=== PATIENT | female | born 1940 | race Caucasian/White ===

== ENCOUNTER 2017-01-10 13:46 | Emergency (ER) | payer MEDICARE, MEDICAID ==
[2016-02-20 10:59] VITALS: BMI 27.5
[~2017-01-10 13:46] MED LIST: ASPIRIN 81 MG E81 MG PO; ASPIRIN EC81 M1 PO; BRILINTA90 MG PO; CARDURA2 MG PO; CLONAZEPAM2 MG/TAB PO; HYDROCODON-ACE1 EAC9 PO; ISOSORBIDE MONO30 M1 PO; K-DUR20 MEQ PO; KLONOPIN1 MG PO; NEXIUM40 MG PO; NORCO 10/325 TA1 TA1 PO; NORVASC5 MG PO; PLAVIX75 MG PO; PROVENTIL HFA6.7 GM INH; SOMA350 MG PO; SYNTHROID75 MCG PO; TENORMIN25 MG PO; TOPROL XL50 MG PO; TRIBENZOR 40-11 EAC1 PO; VENTOLIN HFA18 GM INH; WELLBUTRIN100 MG PO; WELLBUTRIN75 MG PO; ZESTORETIC 20/21 TAB PO
== END 2017-01-10 19:35 | disposition home or self-care (01) ==
LOC: D.ER 13:46
DX: S49.92XA Unspecified injury of left shoulder and upper arm, initial encounter (principal); W22.8XXA Striking against or struck by other objects, initial encounter; Y93.89 Activity, other specified; Y92.019 Unspecified place in single-family (private) house as the place of occurrence of the external cause

== ENCOUNTER 2017-03-02 13:17 | Emergency (ER) | payer MEDICARE, MEDICAID ==
[2016-02-20 10:59] VITALS: BMI 27.5
[2017-03-02 14:05] LABS: BASOPHILS 0.3 % (0-2); EOSINOPHILS 1.1 % (0-7); HEMATOCRIT 36.8 % (36.0-48.0); HEMOGLOBIN 11.5 g/dL (12-16); IMMATURE GRANULOCYTES 0.4 % (0-5); MCH 28.5 pg (26.0-34.0); MCHC 31.3 g/dL (31.0-37.0); MCV 91.3 fL (80.0-100.0); MEAN PLATELET VOLUME 11.1 fL (7.4-10.4); MONOCYTES 14.9 % (2-11); NEUTROPHILS 65.3 % (40-80); PLATELET COUNT 283 10x3/uL (130-400); RBC 4.03 10x6/uL (4.00-5.40); RDW 13.7 % (11.5-14.5); WBC 9.3 10x3/uL (4.8-10.8)
[2017-03-02 14:19] LABS: ALBUMIN 3.2 g/dL (3.4-5.0); ANION GAP 10.7 mmol/L (8-16); BILIRUBIN - TOTAL 0.27 mg/dL (0.2-1.3); CALCIUM 9.1 mg/dL (8.5-10.1); CARBON DIOXIDE 29.1 mmol/L (21.0-32.0); CREATININE - SERUM 1.2 mg/dL (0.6-1.3); POTASSIUM - SERUM 3.8 mmol/L (3.5-5.1); PROTEIN - SERUM 7.5 g/dL (6.4-8.2)
== END 2017-03-02 15:42 | disposition home or self-care (01) ==
LOC: D.ER 13:17
PROVIDERS: Emergency Medicine
DX: S16.1XXA Strain of muscle, fascia and tendon at neck level, initial encounter (principal); W01.0XXA Fall on same level from slipping, tripping and stumbling without subsequent striking against object, initial encounter; Y93.89 Activity, other specified; Y92.010 Kitchen of single-family (private) house as the place of occurrence of the external cause; S09.90XA Unspecified injury of head, initial encounter; S39.93XA Unspecified injury of pelvis, initial encounter; S49.92XA Unspecified injury of left shoulder and upper arm, initial encounter; I10 Essential (primary) hypertension; J45.909 Unspecified asthma, uncomplicated; J44.9 Chronic obstructive pulmonary disease, unspecified; Z86.73 Personal history of transient ischemic attack (TIA), and cerebral infarction without residual deficits; E11.9 Type 2 diabetes mellitus without complications

== ENCOUNTER 2017-03-17 07:50 | Outpatient (CLI) | payer MEDICARE, MEDICAID ==
[~2017-03-17] VITALS: Ht 157.5 cm; Wt 68.2 kg
--- NOTE | ~2017-03-17 | HEMODYNAMI ---
PATIENT:ERIC WARD MEDICAL RECORD: [id number] : 42 LOCATION:[facility] ADMISSION DATE: 03/17/17 Generatedon:03/17/201711:10 Patient name: ERIC WARD Patient #: [id number] SSN: : 1940 Date of study: 03/17/2017 Page: Of Hemodynamic Procedure Report Patient Data Patient Demographics Procedure consent was obtained First Name: ERIC Gender: Female Last Name: ED : 1940 [facility] Initial: S Age: 76 year(s) Patient #: [id number] Race: Additional ID: [id number] Contact details [address]: [address] [place] [address] rd State: [place] City: [place] Zip code: [address] Past Medical History History of disease Date Diagnosis Comments CAD COPD Hypertension Allergies Allergen Reaction Date Comments Reported Sulfa drugs 10/25/2014 Other allergy 10/25/2014 Darvocet Codeine 10/25/2014 Other allergy 10/25/2014 Artificial Sweeteners Sulfa drugs 03/17/2017 Admission Admission Data Admission Date: 03/17/2017 Admission Time: 7:50 Height (in.): 62 BSA: 1.69 (m2) Height (cm.): 157.48 BMI: 27.49 (kg/m2) Weight (lbs.): 150.31 Weight (kg.): 68.18 Lab Results Lab Result Date: 03/17/2017 Lab Result Time: 0:00 Biochemistry Name Units Result Min Max Creatinine mg/dl 1 --(--*-)-- 0.6 1.3 CBC Name Units Result Min Max Hemoglobin g/dl 12.5 *-(----)-- 13.5 17.5 Procedure Procedure Types Cath Procedure Diagnostic Procedure [facility] w/Coronaries FFR/IVUS Intra-Coronary IVUS Initial PCI Procedure Coronary Stent Initial Miscellaneous Procedures Moderate Sedation up to 30 minutes Procedure Description Procedure Date Procedure Date: 03/17/2017 Procedure Start Time: 10:48 Procedure End Time: 11:09 Procedure Staff Name Function Carmen Bruce RT Monitor Reed Eugene RN Nurse Keith Smith MD Performing Physician Grady Armenta RT Scrub Procedure Data Cath Procedure Fluoroscopy Diagnostic fluoroscopy Total fluoroscopy Time: 3.8 time: 3.8 min min Diagnostic fluoroscopy Total fluoroscopy dose: 801 dose: 801 mGy mGy Contrast Material Contrast Material Type Amount (ml) Isovue 300 112 Entry Location Entry Primary Successful Side Size Upsize Upsize Entry Closure Succes sful Closure Location (Fr) 1 (Fr) 2 (Fr) Remarks Device Remarks Femoral Right 5 Fr 6 Fr Exoseal artery Short Estimated blood loss: 10 ml Diagnostic catheters Device Type Used For End Catheter Placement Cordis 5Fr Pigtail LV Angiography Catheter (MP) Cordis 5Fr JL 4.0 Left Coronary Catheter (MP) Angiography Cordis 5Fr 3DRC Catheter Right Coronary (MP) Angiography Procedure Complications No complications Procedure Medications Medication Administration Route Dosage Oxygen NC 2 l/min Heparin Flush Bag added to field 2 bags (1000units/500ml NS) 0.9% NaCl I.V. 100 ml/hr Fentanyl I.V. 100 mcg Versed I.V. 2 mg Fentanyl I.V. 50 mcg Versed I.V. 1 mg Fentanyl I.V. 50 mcg Versed I.V. 1 mg Heparin Bolus I.V. 4000 units Fentanyl I.V. 50 mcg Fentanyl I.V. 50 mcg Hemodynamics Rest BSA: 1.69 (m2) HGB: 12.5 (g/dl) O2 Consumption: Estimated: 154.18 (ml/min) O2 Co nsumption indexed: Estimated:91.23 (ml/min/m) Heart Rate: 71 (bpm) Pressure Samples Time Site Value (mmHg) Purpose Heart Use Rate(bpm) 10:49 LV 142/54,62 Snapshot 67 Snapshots Pre Cath Intra NCS Post Cath Vital Signs Time Heart Resp SPO2 etCO2 [id number] NIBP (mmHg) Rhythm Pain Sedation Rate (ipm) (%) (mmHg) (mmHg) Status Level (bpm) 10:26:49 67 18 99 0 0 173/85(144) NSR 0 (11) 10(A) , No pain 10:31:11 62 19 100 0 0 147/76(124) NSR 0 (11) 10(A) , No pain 10:35:28 65 19 97 0 0 152/76(123) NSR 0 (11) 10(A) , No pain 10:40:27 62 18 96 0 0 143/74(110) NSR 0 (11) 10(A) , No pain 10:44:43 57 18 93 0 0 141/72(115) NSR 0 (11) 10(A) , No pain 10:48:57 69 16 95 0 0 127/74(99) NSR 0 (11) 9(A) , No pain 10:53:07 64 20 95 0 0 127/77(115) NSR 0 (11) 9(A) , No pain 10:57:19 68 17 98 0 0 138/69(113) NSR 0 (11) 9(A) , No pain 11:01:35 64 18 97 0 0 136/71(104) NSR 0 (11) 9(A) , No pain 11:05:49 65 18 92 0 0 148/75(104) NSR 0 (11) 10(A) , No pain 11:09:57 64 19 0 0 142/73(119) NSR 0 (11) 10(A) , No pain Medications Time Medication Route Dose Verified Delivered Reason Notes Effectiveness by by 10:25:00 Oxygen NC 2 Reed Reed Per physician l/min Jabier Eugene RN RN 10:25:10 Heparin Flush added 2 Reed Reed used for Bag to bags Jabier Eugene manager audio (1000units/500ml field RN NS) 10:25:20 0.9% NaCl I.V. 100 Reed Reed Per physician ml/hr Jabier Eugene RN RN 10:45:05 Fentanyl I.V. 100 Reed Reed for sedation mcg Jabier Eugene RN RN 10:45:13 Versed I.V. 2 mg Reed Reed for sedation Jabier Eugene RN RN 10:48:00 Fentanyl I.V. 50 Reed Reed for sedation mcg Jabier Eugene RN RN 10:48:06 Versed I.V. 1 mg Reed Reed for sedation Jabier Eugene RN RN 10:52:29 Fentanyl I.V. 50 Reed Reed for sedation mcg Jabier Eugene RN RN 10:52:33 Versed I.V. 1 mg Reed Reed for sedation Jabier Eugene RN RN 10:55:45 Heparin Bolus I.V. 4000 Reed Mcbride for units Jabier Eugene RN anticoagulation RN 10:57:34 Fentanyl I.V. 50 Reed Mcbride for sedation mcg Jabier Eugene RN RN 11:00:21 Fentanyl I.V. 50 Reed Mcbride for sedation [facility] Jabier Eugene RN bus washer Log Time Note 10:00:25 Reed Eugene RN sent for patient. Start room use. 10:04:24 Lab Result : Creatinine 1 mg/dl 10:04:24 Lab Result : Hemoglobin 12.5 g/dl 10:04:44 Patient Height : 62 cm 10:04:52 Patient Weight : 150.31 kg 10::26 Time tracking: Regular hours 10::29 Plan of Care:Hemodynamics will remain stable., Cardiac rhythm will remain stable., Comfort level will be maintained., Respiratory function will remain adequate., Patient/ family verbilizes understanding of procedure., Procedure tolerated without complication., Recovers from procedure without complications.. 10:16:37 Patient received from Pre/Post Procedure Room to [facility] 1 Alert and oriented. Tansferred to table in Supine position. 10:16:39 Warm blankets applied, and marci hugger turned on for patient comfort. 10:16:40 Correct patient and procedure confirmed by team. 10:16:41 Signed procedure consent form obtained from patient. 10:16:42 ECG and BP/O2 sat monitors applied to patient. 10:16:43 Full Disclosure recording started 10:25:00 Oxygen 2 l/min NC was administered by Reed Eugene RN; Per physician; 10:25:10 Heparin Flush Bag (1000units/500ml NS) 2 bags added to field was administered by Reed Eugene RN; used for procedure; 10:25:20 0.9% NaCl 100 ml/hr I.V. was administered by Reed Eugene RN; Per physician; 10:25:44 Vital chart was started 10:25:48 Rhythm: sinus rhythm 10:26:00 H&P Date Dictated: 03/10/2017 Within 30 days and on chart., H&P Addendum completed by physician on day of procedure. (MUST COMPLETE FOR ALL OUTPATIENTS). 10:26:30 Pre-procedure instructions explained to patient. 10:26:31 Pre-op teaching completed and patient verbalized understanding. 10:26:34 Family in waiting room. 10:26:36 Patient NPO since Midnight. 10:26:44 Patient allergic to Sulfa drugs 10:26:47 Is the patient allergic to Iodine/contrast media? No. 10:26:49 Is patient on blood thinner?Yes 10::52 ACC The patient was administered the following blood thiners within the last 24 hours: ACCAspirin, ACCPlavix 10:26:54 Patient diabetic? Yes. 10:26:55 If diabetic: On Metformin? No 10:26:58 Previous problem with sedation/anesthesia? No ? 10:27:00 Snore? Yes 10:27:01 Sleep apnea? No 10:27:03 Deviated septum? No 10:27:03 Opens mouth fully? Yes 10:27:04 Sticks out tongue? Yes 10:27:06 Airway obstruction? Yes ? 10:27:09 Dentures? Yes In 10:27:12 Pre procedure: right dorsailis pedis pulse 2+ Normal; easily identifiable; not easily obliterated 10:27:16 Patient pain scale 0/10 ?. 10:27:27 IV patent on arrival in left wrist with 0.9% NaCl at O. 10:27:33 Lab results completed and on chart. 10:27:38 Right groin area was prepped with chlora-prep and draped in sterile fashion 10:27:39 Alarms reviewed by R. N. 10:27:39 Sharps counted by scrub and verified by R.N. 10:27:46 Use device set Femoral Dx 10:27:47 Acist Syringe opened to sterile field. 10:27:48 Bag Decanter opened to sterile field. 10:27:49 Medline Cath Pack opened to sterile field. 10:27:49 Terumo 5Fr Brodnax Sheath opened to sterile field. 10:27:50 St Gary 260cm J .035 wire opened to sterile field. 10:27:51 Acist Hand Control opened to sterile field. 10:27:51 Acist Manifold opened to sterile field. 10:27:52 Diagnostic Infinity 5Fr Multipack catheter opened to sterile field. 10:27:52 Tegaderm 4 x 4 opened to sterile field. 10:31:45 Baseline sample Acquired. 10:35:52 Physician paged 10:39:58 Zero performed for pressure channel P1 10:40:02 Zero performed for pressure channel P1 10:44:38 Final Timeout: patient, procedure, and site verified with staff and physician. All members of the team are in agreement. 10:44:42 Right groin site verified by team. 10:44:46 Physical assessment completed. ASA score P 2 - A patient with mild systemic disease as per Keith Smith MD. 10:44:50 Sedation plan: IV Moderate Sedation Versed, Fentanyl 10:45:05 Fentanyl 100 mcg I.V. was administered by Reed Eugene RN; for sedation; 10:45:13 Versed 2 mg I.V. was administered by Reed Eugene RN; for sedation; 10:47:58 Procedure started. 10:48:00 Fentanyl 50 mcg I.V. was administered by Reed Eugene RN; for sedation; 10:48:01 Local anesthetic to right femoral artery with Lidocaine 2% by Carmen HAYES(R).INITIAL ACCESS ONLY 10:48:06 Versed 1 mg I.V. was administered by Reed Eugene RN; for sedation; 10:49:14 A 5 Fr sheath was inserted into the Right Femoral artery 10:49:27 A Cordis 5Fr Pigtail Catheter (MP) was advanced over the wire and used for LV Angiography. 10:50:04 LV gram done using HODGE 10:50:11 EF : 60 % 10:50:14 Catheter removed. 10:50:37 A Cordis 5Fr JL 4.0 Catheter (MP) was advanced over the wire and used for Left Coronary Angiography. 10:52:29 Fentanyl 50 mcg I.V. was administered by Reed Eugene RN; for sedation; 10:52:33 Versed 1 mg I.V. was administered by Reed Eugene RN; for sedation; 10:52:36 Catheter removed. 10:53:04 Terumo 6Fr Brodnax Sheath opened to sterile field. 10:53:05 Fandeavor BasixCompak Inflation Kit opened to sterile field. 10:53:05 Ge Whisper J 300cm 0.014 guide wire opened to sterile field. 10:53:28 A Cordis 5Fr 3DRC Catheter (MP) was advanced over the wire and used for Right Coronary Angiography. 10:53:44 Catheter removed. 10:54:14 Phoenix [place] Eagleye IVUS Catheter opened to sterile field. 10:54:16 Medtronic Launcher 6Fr JL 3.5 guide catheter opened to sterile field. 10:54:46 Sheath upsized to a 6 Fr Short. 10:55:45 Heparin Bolus 4000 units I.V. was administered by Reed Eugene RN; for anticoagulation; 10:55:55 6 Fr JL 3.5 guide catheter was inserted over the wire 10:56:27 Whisper wire advanced. 10:57:29 IVUS catheter advanced over wire. 10:57:34 Fentanyl 50 mcg I.V. was administered by Reed Eugene RN; for sedation; 10:59:01 IVUS pass to LAD lesion performed. 10:59:02 IVUS catheter removed over wire. 11:00:21 Fentanyl 50 mcg I.V. was administered by Reed Eugene RN; for sedation; 11:01:12 Inflation Number: 1 A Medtronic Resolute 3.5 X 9 stent was prepped and advanced across the Prox LAD. The stent was deployed at 17 SCOTT for 0:10 (min:sec). 11:03:40 Stent catheter was removed intact over wire. 11:03:40 Wire removed. 11:03:41 Guide catheter removed. 11:03:48 Sheath removed intact; hemostasis achieved with Exoseal to the Right Femoral artery. 11:03:54 Procedure ended.(Physican Out) 11:04:08 Fluoroscopy time 03.80 minutes. 11:04:14 Fluoroscopy dose: 801 mGy 11:04:14 Flurop Dose total: 801 11:04:19 Contrast amount:Isovue 300 112ml. 11:04:21 Sharps counted by scrub and verified by R.N. 11:04:30 Insertion/operative site no bleeding no hematoma. 11:04:32 Post-op/insertion site Right Femoral artery dressed using a 4 x 4 and Tegaderm. 11:04:36 Post right femoral artery:stable, clean and dry 11:04:38 Post Procedure Pulses reassessed and unchanged 11:04:44 Post-procedure physical assessment completed. ASA score P 2 - A patient with mild systemic disease as per Keith Smith MD. 11:04:47 Post procedure rhythm: unchanged. 11:04:50 Estimated blood loss: 10 ml 11:04:51 Post procedure instruction explained to patient.Patient verbalizes understanding. 11:04:52 Patient needs reinforcement of post procedure teaching. 11:05:12 Procedure type changed to Cath procedure, Diagnostic procedure, LHC, LHC w/Coronaries, FFR/IVUS, Intra-Coronary IVUS Initial, PCI procedure, Coronary Stent Initial, Miscellaneous Procedures, Moderate Sedation up to 30 minutes 11:05:14 Procedure and supply charges have been captured, reviewed, submitted and are correct. 11:05:20 Procedure Complication : No complications 11:05:23 See physician's report for complete and final results. 11:05:56 Cordis 6Fr Exoseal opened to sterile field. 11:09:39 Vital chart was stopped 11:09:41 Report given to Pre/Post Procedure Room. 11:09:44 Patient transfered to Pre/Post Procedure Room with Stretcher. 11:09:52 Procedure ended. 11:09:52 Full Disclosure recording stopped 11:09:55 End room use (Document Last) Intervention Summary Intervention Notes Time ActionType Lesion and Equipment Action# Pressure Duration Attributes Used 11:01:12 Place stent Prox LAD Medtronic 1 17 00:10 Resolute 3.5 X 9 stent Device Usage Item Name Manufacture Quantity Catalog Hospital Part Current Minimal Lot# / Number Charge Number Stock Stock Serial# Code Acist Acist 1 [id number] [id number] 415413 165697 20 Syringe Medical Systems Inc Bag Microtek 1 2002S 720994 50422 043607 5 Decanter Medical Inc. Medline Cardinal 1 [id number] 462987 45699 314522 5 Cath Pack Health Terumo 5Fr Terumo 1 [id number] 139401 187249 595402 [address] St Gary 1 655011 083478 482093 788765 30 260cm J .035 wire Acist Hand Acist 1 58203 694855 643913 598360 5 Control Medical Systems Inc Acist Acist 1 67902 458760 299246 677763 5 Manifold Medical Systems Inc Diagnostic Cardinal 1 [id number] 085987 55839 385988 30 Infinity Health 5Fr Multipack catheter Tegaderm 4 3M 1 1626W 308770 427168 615841 5 x 4 Cordis 5Fr Cardinal 1 215720 5 Pigtail Health Catheter (MP) Cordis 5Fr Cardinal 1 440514 5 JL 4.0 Health Catheter (MP) Terumo 6Fr Terumo 1 [id number] 652523 017455 838952 40 Brodnax Sheath Merit Merit 1 [id number] 021117 983093 044217 15 BasixOffiSync Medical Inflation Kit Ge Ge 1 [id number] 950551 831590 342628 5 Whisper J Vascular 300cm 0.014 guide wire Cordis 5Fr Cardinal 1 [id number] [place] [address] Catheter (MP) Phoenix Phoenix 1 [id number] 815049 800949 157532 8 [place] Eagleye IVUS Catheter Medtronic Medtronic 1 [id number] 829198 52937 011180 1 Launcher 6Fr JL 3.5 guide catheter Medtronic Medtronic 1 [id number] 611447 096929 2 [id number] Resolute 3.5 X 9 stent Cordis 6Fr Cardinal 1 [id number] 221041 487363 255987 10 [facility] M:Metrics Signature Audit Bolt Stage Time Signature Unsigned Intra-Procedure 03/17/2017 Carmen 11:10:44 AM Counts RT(R) Signatures Monitor : Carmen Signature : Counts RT Date : Time : [address] [address]
[2017-03-17 08:33] VITALS: BP 178/78; Ht 157.5 cm; Wt 68.2 kg
[2017-03-17 08:35] LABS: BASOPHILS 0.2 % (0-2); EOSINOPHILS 1.1 % (0-7); HEMATOCRIT 38.8 % (36.0-48.0); HEMOGLOBIN 12.5 g/dL (12-16); IMMATURE GRANULOCYTES 0.6 % (0-5); LYMPHOCYTES 20.4 % (15-50); MCH 28.7 pg (26.0-34.0); MCHC 32.2 g/dL (31.0-37.0); MCV 89.2 fL (80.0-100.0); MEAN PLATELET VOLUME 11.1 fL (7.4-10.4); MONOCYTES 12.2 % (2-11); NEUTROPHILS 65.5 % (40-80); PLATELET COUNT 311 10x3/uL (130-400); RBC 4.35 10x6/uL (4.00-5.40); RDW 13.1 % (11.5-14.5); WBC 8.5 10x3/uL (4.8-10.8)
[2017-03-17] MEDS ORDERED: LEVOTHYROXINE75 MCG PO (08:38)
[2017-03-17] MEDS ORDERED: NORCO 7.5/325 T1 TA1 PO (08:39)
[2017-03-17 08:55] LABS: ANION GAP 16.3 mmol/L (8-16); CALCIUM 9.4 mg/dL (8.5-10.1); CARBON DIOXIDE 24.2 mmol/L (21.0-32.0); POTASSIUM - SERUM 3.5 mmol/L (3.5-5.1)
--- NOTE | 2017-03-17 11:15 | NUR ---
1115 RECIEVED BACK TO ROOM VIA STRETCHER FROM HR ADVISOR WITH 6 FR EXOSEAL R/GROIN CDI NO BLEEDING NO HEMATOMA NOTED. CHEST PAIN IS DENIED VSS 1130 VSS WITH CHEST PAIN DENIED R/GROIN REMAINS CDI NO BLEEDING NO HEMATOMA 1200 RESTING QUIELTY WITH VSS NO DISTRESS NOTED. R/GROIN CDI NO BLEEDING NO HEMATOMA NOTED. 1230 NO CHANGE IN ASSESSMENT
--- NOTE | 2017-03-17 13:00 | NUR ---
CHEST PAIN DENIED WITH VSS 6 FR EXOSEAL R/GROIN CDI NO BLEEDING NO HEMATOMA NOTED. 1330 SANDWICH AND SODA TO BEDSIDE WITH NEEDS PROVIDED CHEST PAIN DENIED 1400 NO C/O OF PAIN OR NEEDS R/GROIN CDI
--- NOTE | 2017-03-17 14:54 | NUR ---
PIV REMOVED FROM L/ARM WITH DRESSING APPLIED VSS WITH CHEST PAIN DENIED 6 FR EXOSEAL R/GROIN CDI NO BLEEDING NO HEMATOMA NOTED PATIENT UP TO GET DRESSED FOR DISCHARGE HOME
--- NOTE | 2017-03-17 15:07 | NUR ---
VERBAL AND WRITTEN DISCHARGE GONE OVER WITH PATIENT. 6 FR EXOSEAL R/GROIN CDI NO BLEEDING NO HEMATOMA NOTED. CHEST PAIN IS DENIED NEW SCRIPT IN HAND FOR CEDRIC FROM DR VERONICA 0616 TRANSPORTED TO FRONT VIA FOR TAXI TO PROVIDE RIDE HOME CHEST PAIN DENIED
== END 2017-03-17 15:10 | disposition home or self-care (01) ==
LOC: D.CATH 07:50
PROVIDERS: Internal Medicine Interventional Cardiology
DX: I25.119 Atherosclerotic heart disease of native coronary artery with unspecified angina pectoris (principal)
CPT/HCPCS: 93458; 92978; C9600

== ENCOUNTER 2017-08-08 14:23 | Inpatient (IN) | payer MEDICARE, MEDICAID ==
--- NOTE | ~2017-08-08 | HEMODYNAMI ---
PATIENT:ERIC WARD MEDICAL RECORD: [id number] : 42 [id number] [id number] ADMISSION DATE: 08/08/17 Generatedon:08/10/201711:00 Patient name: ERIC WARD Patient #: [id number] SSN: : 1940 Date of study: 08/10/2017 Page: Of Hemodynamic Procedure Report Patient Data Patient Demographics Procedure consent was obtained First Name: ERIC Gender: Female Last Name: ED : 1940 [facility] Initial: S Age: 77 year(s) Patient #: [id number] Race: Additional ID: [id number] Contact details Address: [address] [place] [address] rd State: [place] City: [place] Zip code: [address] Past Medical History History of disease Date Diagnosis Comments CAD COPD Hypertension Allergies Allergen Reaction Date Comments Reported Sulfa drugs 10/25/2014 Other allergy 10/25/2014 Darvocet Codeine 10/25/2014 Other allergy 10/25/2014 Artificial Sweeteners Sulfa drugs 03/17/2017 Other allergy 08/10/2017 Sulfa, Darvocet, Artificial sweeteners Admission Admission Data Admission Date: 08/08/2017 Admission Time: 16:53 Room #: [facility] Lab Results Lab Result Date: 08/10/2017 Lab Result Time: 0:00 Biochemistry Name Units Result Min Max BUN mg/dl 22 --(----)-* 7 18 Creatinine mg/dl 1 --(--*-)-- 0.6 1.3 CBC Name Units Result Min Max Hemoglobin g/dl 11.4 *-(----)-- 13.5 17.5 Procedure Procedure Types Cath Procedure Diagnostic Procedure [facility] w/Coronaries FFR/IVUS Intra-Coronary IVUS Initial PCI Procedure Coronary Stent Initial Miscellaneous Procedures Moderate Sedation up to 30 minutes Procedure Description Procedure Date Procedure Date: 08/10/2017 Procedure Start Time: 10:44 Procedure End Time: 10:58 Procedure Staff Name Function Keith Smith MD Performing Physician Carmne Barrera RT Scrub Caprice Kearney RN Nurse Tiffani Fallon RT Monitor Procedure Data Cath Procedure Fluoroscopy Diagnostic fluoroscopy Total fluoroscopy Time: 2.7 time: 2.7 min min Diagnostic fluoroscopy Total fluoroscopy dose: 496 dose: 496 mGy mGy Contrast Material Contrast Material Type Amount (ml) Isovue 300 87 Entry Location Entry Primary Successful Side Size Upsize Upsize Entry Closure Succes sful Closure Location (Fr) 1 (Fr) 2 (Fr) Remarks Device Remarks Femoral Right 5 Fr 6 Fr Exoseal artery Short Estimated blood loss: 5 ml Diagnostic catheters Device Type Used For End Catheter Placement Cordis 5Fr Pigtail LV Angiography Catheter (MP) Cordis 5Fr JL 4.0 Left Coronary Catheter (MP) Angiography Cordis 5Fr 3DRC Catheter Right Coronary (MP) Angiography Procedure Complications No complications Procedure Medications Medication Administration Route Dosage Oxygen NC 2 l/min Heparin Flush Bag added to field 2 bags (1000units/500ml NS) Lidocaine 2% added to field 20 Fentanyl I.V. 50 mcg Versed I.V. 1 mg Fentanyl I.V. 50 mcg Versed I.V. 1 mg Heparin Bolus I.V. 4000 units Plavix P.O. 75 mg Hemodynamics Rest HGB: 11.4 (g/dl) Heart Rate: 72 (bpm) Pressure Samples Time Site Value (mmHg) Purpose Heart Use Rate(bpm) 10:46 AO 79/24(37) Snapshot 67 Snapshots Pre Cath Intra NCS Post Cath Vital Signs Time Heart Resp SPO2 etCO2 NIBP (mmHg) Rhythm Pain Sedation Rate (ipm) (%) (mmHg) Status Level (bpm) 10:33:38 73 20 97 0 150/86(121) NSR 0 (11) 10(A) , No pain 10:38:00 70 17 97 28.8 151/80(120) NSR 0 (11) 9(A) , No pain 10:42:20 66 16 97 30.3 159/81(127) NSR 0 (11) 9(A) , No pain 10:46:42 67 18 96 27.3 135/71(109) NSR 0 (11) 9(A) , No pain 10:50:56 69 19 93 25 149/79(123) NSR 0 (11) 9(A) , No pain 10:55:14 67 16 93 33.4 151/78(111) NSR 0 (11) 9(A) , No pain Medications Time Medication Route Dose Verified Delivered Reason Notes Effectiveness by by 10:37:44 Oxygen NC 2 Caprice Caprice used for l/min Kearney Kearney build technician RN 10:37:50 Heparin Flush added 2 Caprice Caprice used for Bag to bags Kearney Kearney procedure (1000units/500ml field RN RN NS) 10:37:56 Lidocaine 2% added 20ml Caprice Caprice used for to vial Kearney Kearney procedure field RN RN 10:44:51 Fentanyl I.V. 50 Caprice Caprice for sedation mcg Kearney Kearney RN RN 10:44:57 Versed I.V. 1 mg Caprice Caprice for sedation Kearney Kearney RN RN 10:47:01 Fentanyl I.V. 50 Caprice Caprice for sedation mcg Kearney Kearney RN RN 10:47:04 Versed I.V. 1 mg Caprice Caprice for sedation Kearney Kearney RN RN 10:54:40 Heparin Bolus I.V. 4000 Caprice Caprice for units Kearney Kearney anticoagulation RN RN 10:57:40 Plavix P.O. 75 mg Caprice Caprice for Kearney Kearney antiplatelet RN RN therapy Procedure Log Time Note 10:05:38 Carmen Counts RT(R) sent for patient. Start room use. 10:05:39 Time tracking: Regular hours 10:05:43 Plan of Care:Hemodynamics will remain stable., Cardiac rhythm will remain stable., Comfort level will be maintained., Respiratory function will remain adequate., Patient/ family verbilizes understanding of procedure., Procedure tolerated without complication., Recovers from procedure without complications.. 10:32:25 Patient received from PCU to CCL 2 Alert and oriented. Tansferred to table in Supine position. 10:32:26 Warm blankets applied, and marci hugger turned on for patient comfort. 10:32:26 Correct patient and procedure confirmed by team. 10:32:27 Signed procedure consent form obtained from patient. 10:32:28 ECG and BP/O2 sat monitors applied to patient. 10:32:29 Full Disclosure recording started 10:32:29 Vital chart was started 10:35:33 Baseline sample Acquired. 10:35:39 Rhythm: sinus rhythm 10:35:46 H&P Date Dictated: 08/10/2017 New H&P dictated by physician.. 10:35:47 Pre-procedure instructions explained to patient. 10:35:47 Pre-op teaching completed and patient verbalized understanding. 10:35:49 Family in patients room. 10:35:56 Patient NPO since Midnight. 10:36:28 Patient allergic to Other allergySulfa, Darvocet, Artificial sweeteners 10:36:32 Is the patient allergic to Iodine/contrast media? No. 10:36:33 Was the patient premedicated? No 10:36:34 Is patient on blood thinner?Yes 10:36:37 ACC The patient was administered the following blood thiners within the last 24 hours: ACCAspirin, ACCPlavix 10:36:39 Patient diabetic? No. 10:36:44 Previous problem with sedation/anesthesia? No ? 10:36:46 Snore? Yes 10:36:47 Sleep apnea? No 10:36:48 Deviated septum? No 10:36:48 Opens mouth fully? Yes 10:36:49 Sticks out tongue? Yes 10:36:53 Airway obstruction? Yes copd 10:36:55 Dentures? No ? 10:36:58 Pre procedure: right dorsailis pedis pulse 1+ Palpable, but thready & weak; easily obliterated 10:37:02 Pre procedure: left dorsailis pedis pulse 1+ Palpable, but thready & weak; easily obliterated 10:37:05 Patient pain scale 0/10 ?. 10:37:12 IV patent on arrival in left forearm with 0.9% NaCl at KVO. 10:37:25 Lab results completed and on chart. 10:37:29 Right groin area was prepped with chlora-prep and draped in sterile fashion 10:37:29 Alarms reviewed by R. N. 10:37:30 Sharps counted by scrub and verified by R.N. 10:37:32 Physician arrived 10:37:32 --------ALL STOP TIME OUT------ 10:37:32 Final Timeout: patient, procedure, and site verified with staff and physician. All members of the team are in agreement. 10:37:34 Right groin site verified by team. 10:37:37 Physical assessment completed. ASA score P 2 - A patient with mild systemic disease as per Keith Smith MD. 10:37:40 Sedation plan: IV Moderate Sedation Versed, Fentanyl 10:37:44 Oxygen 2 l/min NC was administered by Caprice Kearney RN; used for procedure; 10:37:47 Use device set Femoral Dx 10:37:48 Acist Syringe opened to sterile field. 10:37:48 Bag Decanter opened to sterile field. 10:37:49 Medline Cath Pack opened to sterile field. 10:37:49 Terumo 5Fr Trona Sheath opened to sterile field. 10:37:50 Heparin Flush Bag (1000units/500ml NS) 2 bags added to field was administered by Caprice Kearney RN; used for procedure; 10:37:50 St Gary 260cm J .035 wire opened to sterile field. 10:37:51 Acist Hand Control opened to sterile field. 10:37:51 Acist Manifold opened to sterile field. 10:37:52 Diagnostic Infinity 5Fr Multipack catheter opened to sterile field. 10:37:52 Tegaderm 4 x 4 opened to sterile field. 10:37:56 Lidocaine 2% 20ml vial added to field was administered by Caprice Kearney RN; used for procedure; 10:40:45 Lab Result : BUN 22 mg/dl 10:40:45 Lab Result : Hemoglobin 11.4 g/dl 10:40:45 Lab Result : Creatinine 1 mg/dl 10:44:11 Zero performed for pressure channel P1 10:44:19 Zero performed for pressure channel P1 10:44:37 Procedure started. 10:44:40 Local anesthetic to right femoral artery with Lidocaine 2% by Keith Smith MD.INITIAL ACCESS ONLY 10:44:49 A 5 Fr sheath was inserted into the Right Femoral artery 10:44:51 Fentanyl 50 mcg I.V. was administered by Caprice Kearney RN; for sedation; 10:44:57 Versed 1 mg I.V. was administered by Caprice Kearney RN; for sedation; 10:46:27 A Cordis 5Fr Pigtail Catheter (MP) was advanced over the wire and used for LV Angiography. 10:46:30 LV hemodynamics recorded. 10:46:32 LV gram done using HODGE 10:46:34 Injector settings: Ml/sec: 5, Volume: 15, 10:46:40 EF : 60 % 10:46:41 Catheter removed. 10:46:45 A Cordis 5Fr JL 4.0 Catheter (MP) was advanced over the wire and used for Left Coronary Angiography. 10:47:01 Fentanyl 50 mcg I.V. was administered by Caprice Kearney RN; for sedation; 10:47:03 LCA angiography performed. 10:47:04 Versed 1 mg I.V. was administered by Caprice Kearney RN; for sedation; 10:47:05 Injector settings: Ml/sec: 3, Volume: 6, 10:48:20 Catheter removed. 10:48:25 A Cordis 5Fr 3DRC Catheter (MP) was advanced over the wire and used for Right Coronary Angiography. 10:48:29 RCA angiography performed. 10:48:32 Injector settings: Ml/sec: 3, Volume: 6, 10:49:10 Terumkenxus 6Fr Trona Sheath opened to sterile field. 10:49:11 Valens SemiconductorixCompak Inflation Kit opened to sterile field. 10:49:12 Ge Whisper J 300cm 0.014 guide wire opened to sterile field. 10:49:13 [employer] Hopi Eagleye IVUS Catheter opened to sterile field. 10:49:38 MultiZona.comtronic Launcher 6Fr 3DRC SH guide catheter opened to sterile field. 10:51:04 Catheter removed. 10:51:11 Sheath upsized to a 6 Fr Short. 10:51:18 6 Fr 3drc sh guide catheter was inserted over the wire 10:51:23 whisper wire advanced. 10:51:54 Wire advanced across lesion. 10:52:22 IVUS catheter advanced over wire. 10:54:23 IVUS pass to RCA lesion performed. 10:54:27 IVUS catheter removed over wire. 10:54:40 Heparin Bolus 4000 units I.V. was administered by Caprice Kearney RN; for anticoagulation; 10:55:36 Inflation Number: 1 A Raymond OTW 3.0 x 15 stent was prepped and advanced across the Prox RCA. The stent was deployed at 17 SCOTT for 0:10 (min:sec). 10:56:02 Stent catheter was removed intact over wire. 10:56:02 Wire removed. 10:56:02 Guide catheter removed. 10:56:22 Cordis 6Fr Exoseal opened to sterile field. 10:56:56 Sheath removed intact; hemostasis achieved with Exoseal to the Right Femoral artery. 10:56:58 Procedure ended.(Physican Out) 10:57:17 Fluoroscopy time 02.70 minutes. 10:57:21 Fluoroscopy dose: 496 mGy 10:57:21 Flurop Dose total: 496 10:57:24 Contrast amount:Isovue 300 87ml. 10:57:25 Sharps counted by scrub and verified by R.N. 10:57:26 Insertion/operative site no bleeding no hematoma. 10:57:30 Post-op/insertion site Right Femoral artery dressed using a 4 x 4 and Tegaderm. 10:57:32 Post right femoral artery:stable 10:57:34 Post Procedure Pulses reassessed and unchanged 10:57:37 Post procedure rhythm: unchanged. 10:57:39 Estimated blood loss: 5 ml 10:57:40 Plavix 75 mg P.O. was administered by Caprice Kearney RN; for antiplatelet therapy; 10:57:41 Post procedure instruction explained to patient.Patient verbalizes understanding. 10:57:41 Patient needs reinforcement of post procedure teaching. 10:58:02 Procedure type changed to Cath procedure, Diagnostic procedure, LHC, LHC w/Coronaries, FFR/IVUS, Intra-Coronary IVUS Initial, PCI procedure, Coronary Stent Initial, Miscellaneous Procedures, Moderate Sedation up to 30 minutes 10:58:03 Procedure and supply charges have been captured, reviewed, submitted and are correct. 10:58:07 Procedure Complication : No complications 10:58:09 Vital chart was stopped 10:58:10 See physician's report for complete and final results. 10:58:22 Report given to [facility]. 10:58:25 Patient transfered to [facility] with Stretcher. 10:58:28 Procedure ended. 10:58:28 Full Disclosure recording stopped 10:58:38 ACC-PCI Only Patient was given prescriptions, or instructed by Keith Smith MD to start/continue the following medications upon discharge: Plavix 10:58:39 End room use (Document Last) Intervention Summary Intervention Notes Time ActionType Lesion and Equipment Action# Pressure Duration Attributes Used 10:55:36 Place stent Prox RCA [place] OTW 1 17 00:10 3.0 x 15 stent Device Usage Item Name Manufacture Quantity Catalog Hospital Part Current Minimal Lot# / Number Charge Number Stock Stock Serial# Code Acist Acist 1 [id number] [id number] 654251 637358 20 Syringe Medical Systems Inc Bag Microtek 1 2002S 795927 06724 485299 5 Decanter Medical Inc. Medline Cardinal 1 [id number] 825875 79607 201141 5 Cath Pack Health Terumo 5Fr Terumo 1 [id number] 734664 809496 315123 [address] Gary 1 [id number] 087049 859706 636137 30 260cm J .035 wire Acist Hand Acist 1 84738 068800 378535 995472 5 Control Medical Systems Inc Acist Acist 1 30508 149362 586353 650010 5 Manifold Medical Systems Inc Diagnostic Cardinal 1 [id number] 523379 36012 676312 30 Infinity Health 5Fr Multipack catheter Tegaderm 4 3M 1 1626W 448296 107264 188242 5 x 4 Cordis 5Fr Cardinal 1 709392 5 Pigtail Health Catheter (MP) Cordis 5Fr Cardinal 1 580175 5 JL 4.0 Health Catheter (MP) Cordis 5Fr Cardinal 1 624061 5 3DRC Health Catheter (MP) Terumo 6Fr Terumo 1 [id number] 485702 041084 846327 40 Trona Sheath Merit Merit 1 [id number] 681363 211126 573261 15 BasixCompak Medical Inflation Kit Ge Ge 1 [id number] 233603 056000 440601 5 Whisper J Vascular 300cm 0.014 guide wire Mcintire Mcintire 1 [id number] 971527 165844 922115 8 Hopi Eagleye IVUS Catheter Medtronic Medtronic 1 [id number] 116053 892045 610393 1 Launcher 6Fr 3DRC SH guide catheter [place] OTW Medtronic 1 [id number] 593968 321088 136462 5 [id number] 3.0 x 15 stent Cordis 6Fr Cardinal 1 EX600 201189 419406 041457 10 [facility] [employer] Signature Audit Mineral Stage Time Signature Unsigned Intra-Procedure 08/10/2017 Tiffani Fallon 11:00:43 AM RT(R) Signatures Monitor : Tiffani Fallon RT Signature : Date : Time : [address] [place] [address]
[~2017-08-08 14:23] MED LIST changes: +LEVOTHYROXINE75 MCG PO; +NORCO 7.5/325 T1 TA1 PO
[2017-08-08 14:51] LABS: BASOPHILS 0.3 % (0-2); EOSINOPHILS 1.1 % (0-7); HEMATOCRIT 36.5 % (36.0-48.0); HEMOGLOBIN 11.8 g/dL (12-16); IMMATURE GRANULOCYTES 0.5 % (0-5); LYMPHOCYTES 20.2 % (15-50); MCH 28.2 pg (26.0-34.0); MCHC 32.3 g/dL (31.0-37.0); MCV 87.3 fL (80.0-100.0); MEAN PLATELET VOLUME 11.1 fL (7.4-10.4); NEUTROPHILS 64.9 % (40-80); PLATELET COUNT 254 10x3/uL (130-400); RBC 4.18 10x6/uL (4.00-5.40); RDW 14.3 % (11.5-14.5)
[2017-08-08 15:33] LABS: ALBUMIN 3.7 g/dL (3.4-5.0); ANION GAP 15.7 mmol/L (8-16); BILIRUBIN - TOTAL 0.38 mg/dL (0.2-1.3); CALCIUM 9.3 mg/dL (8.5-10.1); POTASSIUM - SERUM 3.7 mmol/L (3.5-5.1); PROTEIN - SERUM 7.8 g/dL (6.4-8.2)
[2017-08-08 15:41] LABS: APPEARANCE CLEAR (CLEAR); COLOR YELLOW (YELLOW)
[2017-08-08 15:42] LABS: BILIRUBIN NEGATIVE (NEGATIVE); GLUCOSE NEGATIVE (NEGATIVE); KETONE NEGATIVE (NEGATIVE); NITRITE NEGATIVE (NEGATIVE); PROTEIN NEGATIVE (NEGATIVE); UROBILINOGEN NORMAL (NORMAL)
[2017-08-08 15:43] LABS: BACTERIA FEW /hpf (NONE SEEN); WHITE CELLS - URINE 0-5 /hpf (0-5)
[2017-08-08 16:08] LABS: CKMB 0.2 U/L (0.0-3.6); CREATINE KINASE 65 UL (21-215); PRO BNP 226 pg/mL (0-450); TROPONIN-I < 0.017 ng/mL (0.000-0.060)
--- NOTE | 2017-08-08 17:45 | NUR ---
PT RECIEVED TO ROOM FROM ER. RR EVEN AND UNLABORED, VSS. PT IS ABLE TO AMBULATE WITH ASSIST TO SCALE FOR WEIGHING. PT REPORTS FEELING VERY WEAK. REPORTS GENERALIZED PAIN. FALL SOCKS PLACED ON PT, ORIENTED TO ROOM AND HOW TO CALL FOR ASISTANCE. WILL CTM.
[2017-08-08 17:58] VITALS: BP 135/69; BMI 29.1
[2017-08-08 19:00] VITALS: BP 137/71
--- NOTE | 2017-08-08 20:00 | NUR ---
PT RESTING IN BED WITH NO DISTRESS. IVF INFUSING LR @ 100ML/HR TO LEFT HAND. NONLABORED RESPS ON ROOM AIR. SR PER TELEMETRY. PT C/O CHRONIC HIP PAIN AND REQUESTING NORCO THAT SHE USUALLY TAKES AT HOME. SPOKE WITH LUNCHROOM MONITOR WHO WILL HAVE TO GO TO ER AND ASK ER DOCTOR IF HOME MEDS OF NORCO AND KLONOPIN CAN BE CONTINUED.
[2017-08-08 21:54] LABS: CKMB 0.1 U/L (0.0-3.6); CREATINE KINASE 53 UL (21-215); TROPONIN-I < 0.017 ng/mL (0.000-0.060)
--- NOTE | 2017-08-08 22:51 | NUR ---
STILL AWAITING PLANT PATHOLOGIST SPEAKING TO ER ABOUT PT'S HOME MEDS.
--- NOTE | 2017-08-08 23:45 | NUR ---
ORDERS RECIEVED AND PT GIVEN KLONOPIN 2MG BY MOUTH + NORCO 7.5/325MG BY MOUTH AT THIS TIME. CYBER SECURITY INSTRUCTOR IN ROOM AND ASSISTING PT TO WALK TO BATHROOM TO VOID. NO OTHER NEEDS.
[2017-08-09] VITALS: BP 146/75
--- NOTE | 2017-08-09 03:03 | NUR ---
PT ASSISTED UP TO BATHROOM BY DEVELOPMENT DISABILITY SPECIALIST WITHOUT ANY DIFFICULTY. UPON TIME TO RETURN TO BED, NURSE AND ANOTHER TECH SHOWED UP TO ASSIST AND PT ACTED IF SHE COULD NOT HOLD HER HEAD UP AND WHEN STOOD UP BY STAFF X 2, SHE WAS LIMP AND STAFF WAS BEARING HER WEIGHT. STRESSED TO PAIIENT THAT SHE NEEDED TO STAND UP, BEAR HER WEIGHT AND WALK BACK TO BED. ASKED PT IF SHE FELT SHE HAD RECIEVED TOO MUCH KLONOPIN. PT IMMEDIATELY STRAIGHTENED UP AND STAFF ASSISTED HER TO BED. SHE THEN TOLD STAFF THAT HER KLONOPIN DID NOT MAKE HER ACT LIKE THAT, SHE SAID SOMETIMES SHE JUST DOES THAT WITH NO WARNING. PT THEN SAYING HER HIPS REALLY HURT AND SHE NEEDS PAIN MEDS. INSTRUCTED PT THAT SINCE SHE JUST APPEARED TO BE VERY LETHARGIC, NURSE WILL JUST MONITOR HER FOR NOW.
[2017-08-09 03:29] LABS: CKMB 0.4 U/L (0.0-3.6); CREATINE KINASE 54 UL (21-215); TROPONIN-I < 0.017 ng/mL (0.000-0.060)
[2017-08-09 04:03] VITALS: BP 139/69
--- NOTE | 2017-08-09 07:30 | NUR ---
REPORT RECEIVED. RR EVEN AND UNLABORED. PT DENIES NEEDS AT THIS TIME, REPORTS HAVING A "TERRIBLE NIGHT" DUE TO HER NOT SLEEPING WELL. ASSESSMENT PERFORMED. WILL CTM.
[2017-08-09 08:00] VITALS: BP 144/71
--- NOTE | 2017-08-09 09:20 | NUR ---
PT RESTING QUIETLY, RR EVEN AND UNLABORED. PT REQUESTING PRN PAIN MED. WILL GIVE AND CTM.
[2017-08-09 09:32] LABS: CREATINE KINASE 54 UL (21-215); TROPONIN-I < 0.017 ng/mL (0.000-0.060)
[2017-08-09 10:09] LABS: CKMB 0.2 U/L (0.0-3.6)
[2017-08-09 12:00] VITALS: BP 160/63
[2017-08-09 12:54] LABS: BASOPHILS 0.4 % (0-2); EOSINOPHILS 2.1 % (0-7); HEMATOCRIT 36.4 % (36.0-48.0); HEMOGLOBIN 11.4 g/dL (12-16); IMMATURE GRANULOCYTES 0.3 % (0-5); LYMPHOCYTES 29.1 % (15-50); MCHC 31.3 g/dL (31.0-37.0); MEAN PLATELET VOLUME 12.1 fL (7.4-10.4); MONOCYTES 10.5 % (2-11); NEUTROPHILS 57.6 % (40-80); PLATELET COUNT 262 10x3/uL (130-400); RBC 4.07 10x6/uL (4.00-5.40); RDW 14.7 % (11.5-14.5)
[2017-08-09 12:55] LABS: MCV 89.4 fL (80.0-100.0); WBC 6.8 10x3/uL (4.8-10.8)
--- NOTE | 2017-08-09 14:15 | NUR ---
PT FELL OFF SIDE OF BED ONTO FLOOR. PRESSURE DISPATCHER WAS IN ROOM WITH PT WHEN IT HAPPENED. PT WAS SITTING ON SIDE OF BED WHILE PRESSURE DISPATCHER PREPARED TO GIVE PT SHOWER. OCCORDING TO ESTRELLITA THE PRESSURE DISPATCHER WHO WITNESSED PT FALL, SAW THE PT FALL ONTO FLOOR FROM SIDE OF BED, PT REPORTS NOT HITTING HEAD AND DENIES LOSING CONCIOUSNESS PRIOR TO FALL. PT SAID SHE FELL ON HER HIP, BUT IT IS "NOT HURTING ANY WORSE THAN IT WAS." GEODESY TEACHER NOTIFIED. WILL CTM. FAMILY AT BEDSIDE WELL DURING FALL.
--- NOTE | 2017-08-09 14:36 | NUR ---
HERE AND AWARE OF PTS FALL. JAMAAL ASSESSING PT AND DENIES ANY ACTIONS NEEDED. WILL CONTINUE WITH FALL PRECAUTIONS.
--- NOTE | 2017-08-09 15:15 | NUR ---
PT RESTING QUIELTY, FAMILY AT BEDSIDE. RR EVEN AND UNLABORED. PT DENIES NEEDS AT THIS TIME. NO COMPLAINTS SINCE FALL.
[2017-08-09 16:00] VITALS: BP 139/67
--- NOTE | 2017-08-09 18:24 | NUR ---
PT RESTING QUIETLY, EDWARD ALARM PLACED ON PT DUE TO FALL PREVIOUSLY IN SHIFT. FALL SOCKS ON PT, BED IN LOWEST POSTION, CALL CONTE IN REACH, BEDSIDE TABLE IN REACH. PT IS AWARE TO CALL FOR ASSISTANCE IF NEEDED. RR EVEN AND UNLABORED. WLL GIVE REPORT ON PT CONDITION FOR THE DAY.
[2017-08-09 20:26] VITALS: BP 141/62
--- NOTE | 2017-08-09 21:16 | NUR ---
BEDTIME MEDS GIVEN AND ASSISTED TO BATHROOM. IVF INFUSING. REQUESTED PAIN PILL GIVEN FOR CHRONIC HIP AND HEADACHE PAIN 06/04. WILL MONITOR. MAT ALARM IN PLACE.
[2017-08-10 00:44] VITALS: BP 133/71
--- NOTE | 2017-08-10 04:25 | NUR ---
PT AWAKE AND CRYING THAT SHE IS HURTING IN HER HIPS AND HAS A HEADACHE. MEDICATED WITH NORCO 7.5/325MG TABLET AND ALSO PROVIDED AM SYNTHROID WITH SIP OF WATER PATIENT IS NPO FOR AM HEART CATH. BRIM BUSTER WILL BE PROVIDING HIBICLENS BATH AND CARE.
[2017-08-10 05:43] VITALS: BP 145/63
--- NOTE | 2017-08-10 07:30 | NUR ---
REPORT RECEIVED. RR EVEN AND UNLABORED. PT DENIES NEEDS AT THIS TIME. ASSESMENT PERFORMED. EXPLAINED THAT PT WILL BE GOING FOR HEART CATH TODAY. VERBALIZED UNDERSTANDING. WILL CTM.
[2017-08-10 08:00] VITALS: BP 136/70
--- NOTE | 2017-08-10 10:00 | NUR ---
CALLED FOR PT PRE-OP. IV LEAKING. RESTARTED 20G IV TO LEFT WRIST X1 STICK. GAVE PRE-OP MEDS. WILL CTM UPON RETURN FROM ASH KIER BOILER.
--- NOTE | 2017-08-10 10:22 | NUR ---
PT TRANSFERRED TO TITLE COORDINATOR. WILL CTM UPON RETURN.
--- NOTE | 2017-08-10 11:15 | NUR ---
PT RECEIVED TO ROOM FROM PAINT BOOTH OPERATOR. RR EVEN AND UNLABORED. VSS, PT PLACED ON FREQUENT VS. PT IS COMPLAINING OF PAIN AND FALLS ALSEEP EASILY. DRESSING CITE ON LEFT GROIN CDI. PEDAL PULSE +2. WILL CTM.
--- NOTE | 2017-08-10 14:45 | NUR ---
METAL MINER FOUND PT SITTING UPRIGHT IN BED, AFTER TEACHING HAD ALREADY BEEN DONE THAT PT NEEDED TO LAY FLAT FOR AT LEAST 4 HRS. RIGHT GROIN DRESSING STILL CDI. VSS, EXPLAINED TO PT AGAIN THE IMPORTANCE OF LAYING FLAT. VERBALIZED UNDERSTANDING. WILL CTM.
[2017-08-10 16:42] VITALS: BP 131/51
--- NOTE | 2017-08-10 16:46 | NUR ---
PT TRANSFERRED DOWN TO MRI.
--- NOTE | 2017-08-10 17:21 | NUR ---
PT BACK FROM MRI. RR EVEN AND UNLABORED. PT DENIES NEEDS AT THIS TIME, WILL CTM.
--- NOTE | 2017-08-10 18:45 | NUR ---
PT RESTING QUIETLY, RR EVEN AND UNLABORED. DRESSING CITE CDI. PT DENIES FURTHER NEEDS. WILL GIVE REPORT ON PT CONDITION FOR THE DAY.
--- NOTE | 2017-08-10 19:33 | NUR ---
PT ASLEEP. RESPIRATIONS EVEN AND UNLABORED. NO S/S OF DISTRESS. BED LOW AND CALL LIGHT IN REACH. WILL CPOC
[2017-08-10 20:55] VITALS: BP 167/80
--- NOTE | 2017-08-10 21:47 | NUR ---
PT STILL ASLEEP. AROUSES TO VERBAL STIMULI. PT UP TO TAKE MEDS. PT EDWARD ALARM ON AND ACTIVE. PT FALL RISK. PT C/O PAIN IN BACK AND LEGS. PRN PAIN MED GIVEN. PT HAS LR INFUSING AT 100 TO LEFT WRIST. PT DENIES ANY NEEDS. NO S/S OF DISTRESS. WILL CPOC
--- NOTE | 2017-08-10 22:01 | NUR ---
PT UP TO BEDSIDE COMMODE. 150ML OF LIGHT YELLOW URINE. PT BACK TO BED. PT GAIT UNSTEADY AND BALANCE PROBLEMS. PT DENIES ANY NEEDS. NO S/S OF DISTRESS. WILL CPOC. PT C/O HEADACE
[2017-08-10 23:58] VITALS: BP 175/85
--- NOTE | 2017-08-11 02:58 | NUR ---
PT ASLEEP. RESPIRATIONS EVEN AND UNLABORED. LAYING ON LEFT SIDE. NO S/S OF DISTRESS. BED LOW AND CALL LIGHT IN REACH. WILL CPOC
[2017-08-11 05:07] VITALS: BP 134/65
--- NOTE | 2017-08-11 05:50 | NUR ---
PT C/O OF PAIN 9/10 IN HIPS AND SHOULDERS. PRN NORCO GIVEN. PT OFFERED NOURISHMENT AND REPOSITIONING. PT DENIES ANY OTHER NEEDS. NO S/S OF DISTRESS. NS INFUSING AT 100 TO LEFT HAND. WILL CPOC
[2017-08-11 08:13] VITALS: BP 147/76
[2017-08-11 12:09] VITALS: BMI 29.6
[2017-08-11 12:14] VITALS: BP 161/74
--- NOTE | 2017-08-11 15:53 | NUR ---
Patient Name: ERIC WARD Admission Status: ER Accout number: [id number] Admission Date: 08-08-2017 : 1940 Admission Diagnosis: Attending: JOSÉ LUIS DE SOUZA Current LOS: 3 Anticipated DC Date: 08-11-2017 Planned Disposition: Home with Home Health Primary Insurance: [facility] PLANNED EXTERNAL PROVIDER: [facility] Discharge Planning Comments: * Is the patient Alert and Oriented? Yes 0 * How many steps to enter\\exit or inside your home? RAMP 0 * PCP DR. MENDOZA 0 * Pharmacy [facility] ON [address] 0 * Preadmission Environment Home with Family 0 * ADLs Partial Dependent 0 * Partial ADLs (Assistance needed) Bathing Transfers 0 * Equipment Cane 0 * Other Equipment NO MEDICAL EQUIPMENT PROVIDER PREFERENCE 0 * List name and contact numbers for known caregivers / representatives who currently or will assist patient after discharge: GRISELDA WARD, SON, 0 * Community resources currently utilized Meals on Wheels 0 * Please name any agencies selected above. [facility] [place], [employer] [employer] 0 * Additional services required to return to the preadmission environment? Yes 0 * Can the patient safely return to the preadmission environment? Yes 0 * Has this patient been hospitalized within the prior 30 days at any hospital? No 0 CM MET WITH PT IN ROOM TO DISCUSS DISCHARGE PLANNING AND NEEDS. PT REPORTS LIVING AT HOME WITH ASSISTANCE OF HER ADULT SON WHO ASSISTS WITH BATHING PT, GETTING PT UP, COOKING AND TRANSPORTATION. PT HAS MEALS ON WHEELS THROUGH [facility] BUT WANTS TO LOOK INTO THE "MOM'S MEALS." PT HAS A CANE WITH NO MEDICAL EQUIPMENT PROVIDER PREFERENCE. PT HAS NO OUTSIDE SERVICES ASSISTING IN THE HOME. CM DISCUSSED AVAILABILITY OF HOME HEALTH, REHAB SERVICES AND MEDICAL EQUIPMENT. PT ABSOLUTELY WILL NOT GO TO A RESIDENTIAL FACILITY AND REPORTS PLAN TO GO HOME WHERE HER SON TAKES CARE OF HER. PT WOULD LIKE TO HAVE [facility], CHOICE SIGNED, REPORTS HER SON WILL PICK HER UP FOR DISCHARGE HOME. CM RECEIVED ORDER FOR INPATIENT REHAB PRESCREENING, SPOKE TO PT IN ROOM, DISCUSSED INPATIENT REHAB PROVIDERS AND LOCATIONS. PT REPORTS SHE WILL SPEAK TO HER SON ABOUT THE POSSIBILITY, BUT IS LEANING TOWARD HOME WITH HOME HEALTH. PT REPORTS SHE WANTS PHYSICAL THERAPY AT HOME, NEEDS A WALKER WITH A SEAT, SHOWER CHAIR AND GRAB BAR FOR THE SHOWER IF ANY OF THIS IS NOT COVERED BY INSURANCE, PT WOULD LIKE TO KNOW HOW MUCH IT WILL COST. CM EXPLAINED THAT ALL EQUIPMENT AND HOME HEALTH WILL BE ARRANGED WITH DOCTORS ORDERS. PT WANTS A LETTER FROM THE DOCTOR HERE TO PROVIDE TO [facility] [place] FOR MEDICAID TO PAY HER SON TO BE HER CAREGIVER AT HOME. CM EXPLAINED THAT PT WILL NEED TO ASK FOR THIS DOCUMENTATION FROM HER PRIMARY CARE DOCTOR, DR. MENDOZA. CM PROVIDED PT WITH PHONE NUMBER TO [employer]. PT'S NEW PHYSICAL ADDRESS IS [address] [place] [address], [place] [address]. PHONE NUMBER IS [phone]. PT WILL SPEAK TO HER SON ABOUT INPATIENT REHAB; REPORTS PLAN TO GO HOME, REPORTS HER ADULT SON TO BE HER CAREGIVER; PT WANTS HOME HEALTH PHYSICAL THERAPY, WALKER WITH A SEAT, SHOWER CHAIR AND GRAB BAR FOR THE SHOWER. Channeler Outsole: Jarret Ferreira
--- NOTE | 2017-08-11 16:15 | NUR ---
Rehab Prescreening Consult recieved and the chart has been reviewed. She is managed Medicare with [facility] and will require a preauthorization for the IRF. She has a PT eval and an OT eval as well as a neuro consult pending. Once recieved all information will be submitted to [facility] for their review. Discussed with the ASHOK Ferreira. Jinny Turner RN Clinical Liaison, Rehab
[2017-08-11 17:13] VITALS: BP 172/86
--- NOTE | 2017-08-11 19:30 | NUR ---
ROUNDING NOTE: PT IS SLEEPING AT THE CHANGE OF THE SHIFT. PT IS ON RA. PT HAS A LEFT WRIST IV SITE W/ LR RUNNING AT 50CC/HR. PT'S IV IS INFILTRATED, SO IT WAS D/C'D. WILL RESTART IV. PT HAS RULED IN FOR A CVA, SO SHE IS ON NEURO CHECKS [id number]. PT ALSO HAD A CARDIAC STENT PLACED YESTERDAY. PT HAS EDWARD BED ALARM IN PLACE. PER DAY NURSE, PT HAS BEEN CONFUSED AT TIMES. SPOKE WITH PT'S SISTER TO UPDATE ON HER PROGRESS. WILL CONT MONITOR.
[2017-08-11 20:47] VITALS: BP 183/58
--- NOTE | 2017-08-12 00:45 | NUR ---
TABLE WORKER CALLED FROM THE PT'S ROOM FOR HELP. WENT INTO TO ASSIST AND PT WAS FOUND ON HER KNEES IN THE BATHROOM. TABLE WORKER, STU, STATED THAT SHE WAS WEIGHING PT AND TAKING HER TO THE BATHROOM WHEN THE PT'S KNEE'S BUCKLED AND SHE SLOWLY WENT DOWN TO HER KNEES. PT DENIES ANY INJURIES. SHE DID NOT HIT HER HEAD. PT IS AWAKE, ALERT AND ORIENTED X3. PT IS ABLE TO TELL ME WHERE SHE IS, THE YEAR, AND THE SITUATION. SHE DID NOT HIT HER HEAD, HER KNEES JUST GAVE OUT. SHE DENIES INJURING HER KNEES, ALTHOUGH SHE DOES REPORT CHRONIC KNEE PAIN AT BASELINE D/T ARTHRITIS. NO NEW NEURO DEFICITS. SPEECH IS CLEAR AND THERE IS NO UNILATERAL WEAKNESS. PT ASSISTED BACK TO BED SAFELY. PT'S FAMILY, DOCTOR, AND THE INSURANCE RATER WILL BE NOTIFIED OF INCIDENT. WILL CONT TO MONITOR.
[2017-08-12 00:52] VITALS: BP 144/71
[2017-08-12 04:37] VITALS: BP 124/65
--- NOTE | 2017-08-12 07:30 | NUR ---
AM ROUNDS COMPLETED. INTRODUCED MYSELF TO PT PRIMARY RN FOR TODAYS SHIFT. PT A&O SITTING UP IN BED RESTING QUIETLY. RR NONLABORED ON RA. PT DENIES ANY CURRENT NEEDS. WILL CHECK CHART AND CPOC.
[2017-08-12 08:14] VITALS: BP 146/77
--- NOTE | 2017-08-12 10:20 | NUR ---
MORNING MEDICATIONS GIVEN. PT REQUESTED AND WAS PROVIDED WITH PAIN PILL WELL FOR "GENERALIZED" PAIN. PT IS SITTING UP ON EDGE OF BED NEEDING TO USE BR. ASSISTED PT TO BEDSIDE COMMODE MIN ASSIST. PT VOIDED 300ML CLEAR YELLOW URINE. ASSISTED PT BACK INTO BED AND SHE STATES SHE IS DIZZY. SAT WITH PT FOR A MOMENT AND SHE FELT LIKE SHE CAUGHT HER BEARING AND STATES SHE IS NO LONGER DIZZY BUT HER HEAD FEELS "FUZZY" PT HAS HAD A CONFIRMED NEW CVA PER MRI AND DOCTORS ARE AWARE. PT IS A&O X4 AND VERY KNOWLEDGABLE ABOUT ALL HER MEDS AND DOSES. ONLY NOTED DEFICITS IS SEVERE WEAKNESS IN ALL EXTREMETIES. WILL CPOC AND WAITING FOR IP REHAB.
[2017-08-12 11:17] LABS: BASOPHILS 0.4 % (0-2); EOSINOPHILS 2.7 % (0-7); HEMATOCRIT 34.2 % (36.0-48.0); IMMATURE GRANULOCYTES 0.4 % (0-5); MCH 28.3 pg (26.0-34.0); MCHC 32.2 g/dL (31.0-37.0); MCV 87.9 fL (80.0-100.0); MONOCYTES 13.8 % (2-11); NEUTROPHILS 65.7 % (40-80); PLATELET COUNT 223 10x3/uL (130-400); RBC 3.89 10x6/uL (4.00-5.40); RDW 14.5 % (11.5-14.5); WBC 8.2 10x3/uL (4.8-10.8)
[2017-08-12 11:37] LABS: ANION GAP 12.1 mmol/L (8-16); CALCIUM 8.9 mg/dL (8.5-10.1); CARBON DIOXIDE 26.4 mmol/L (21.0-32.0); POTASSIUM - SERUM 3.5 mmol/L (3.5-5.1)
[2017-08-12 12:10] VITALS: BP 152/74
--- NOTE | 2017-08-12 12:56 | NUR ---
PT SITTING UP IN BED WATCHING TV AND EATING LUNCH. RR NONLABORED ON RA. PT DENIES ANY CURRENT PAIN OR NEEDS. CL IN REACH, BED IN LOWEST, SIDE RAILS X2 AND EDWARD ALARM IN PLACE. WILL CPOC.
--- NOTE | 2017-08-12 15:00 | NUR ---
DID NOT GIVE PTS KLONOPIN R/T HER BEING DROWSY AND SLOW TO RESPOND ALL DAY. PT DOESNT APPEAR ANXIOUS AND NO NEED FOR IT AT THIS TIME. IF PT BECOMES ANXIOUS OR ASK FOR IT WILL PROVIDE. NO CURRENT NEEDS AT THIS TIME. WILL CPOC.
--- NOTE | 2017-08-12 15:03 | NUR ---
Rehab Note- Aliya began, spoke with Divina with [facility], Ref#[id number]. Awaiting to fax clinicals. Will follow at this time. Thank you for this referral! Jaz Meng RN Clinical Liaison, [facility] Rehab
[2017-08-12 15:43] VITALS: BP 161/81
--- NOTE | 2017-08-12 17:51 | NUR ---
PT IS REFUSING A BATH AND STATES SHE IS TOO WEAK HOWEVER PT IS A MIN ASSIST TO BEDSIDE COMMODE. PT STATES SHE WILL "LAY THERE" AND ALLOW THE PUBLIC SPEAKER TO BATHE HER BUT REFUSES TO ASSIST. OFFERED TO SET THINGS UP AND HELP HER BUT PT REFUSED. WILL CPOC.
[2017-08-12 19:00] VITALS: BP 170/83
--- NOTE | 2017-08-12 19:58 | NUR ---
RESUMED CARE OF PT, UP ON BEDSIDE COMMODE. ASSISTED BACK TO BED. LEFT HAND INFUSING LR @ 50. FAMILY AT BEDSIDE. 85 SR WITH PVC ON TELEMETRY. PLAN OF CARE DISCUSSED. CALL LIGHT IN REACH. WILL CONTINUE TO MONITOR. SEE NURSE ASSESSMENT.
--- NOTE | 2017-08-12 20:45 | NUR ---
ARRIVED TO FLOOR VIA BED, ACCOMPANIED BY ICU NURSES. ORIENTED TO UNIT, CALL LIGHT IN REACH. WILL CONTINUE TO MONITOR.
[2017-08-13] VITALS: BP 143/73
[2017-08-13 04:00] VITALS: BP 182/68
[2017-08-13 05:28] LABS: CHOL - HDL RATIO 5.8 ratio (2.3-4.1); LDL-HDL RATIO 4.1 ratio (1.5-3.5)
--- NOTE | 2017-08-13 06:42 | NUR ---
NO CHANGES FROM PREVIOUS ASSESSMENT. CALL LIGHT IN REACH.
[2017-08-13 08:00] VITALS: BP 155/92
[2017-08-13 12:00] VITALS: BP 185/94
[2017-08-13 16:00] VITALS: BP 183/90
--- NOTE | 2017-08-13 19:49 | NUR ---
RESUMED CARE OF PT, LYING IN BED RESPIRATION AND UNLABORED ON ROOM AIR. TEARFUL, DUE TO FRUSTRATION WITH FINE MOTOR SKILLS. HAVE TROUBLE TEXTING ON HER PHONE. 81 SR ON TELEMETRY. LEFT HAND INFUSING LACTATED RINGERS @ 50. CALL LIGHT IN REACH. WILL CONTINUE TO MONITOR. SEE NURSE ASSESSMENT.
[2017-08-13 21:38] VITALS: BP 189/95
[2017-08-14 01:53] VITALS: BP 143/73
--- NOTE | 2017-08-14 02:30 | NUR ---
LYING IN BED, CALL LIGHT IN REACH. WILL CONTINUE WITH PLAN OF CARE. 76 SR ON TELEMETRY
[2017-08-14 04:16] VITALS: BP 169/71
--- NOTE | 2017-08-14 07:30 | NUR ---
REPORT RECEIVED. RR EVEN AND UNLABORED, PT IS ASLEEP, EASY TO AROUSE. PT DENIES NEEDS AT THIS TIME. WILL CTM.
[2017-08-14 08:46] VITALS: BP 146/67
--- NOTE | 2017-08-14 10:20 | NUR ---
Rehab Note- Received notification from Rebecca Worthy with [facility] that their biomedical engineering internship has denied the patient an acute inpatient rehab stay that the patient could receive care at a lower level of care at a SNF unit. A peer to peer can be set up by contacting Rebecca Worthy at [phone] prior to August 17 at 0840. Spoke to ASHOK Herron and relayed this message. Thank you for this referral! Jaz Meng RN Clinical Liaison, [facility] Rehab
[2017-08-14 11:59] VITALS: BP 149/72
[2017-08-14 16:20] VITALS: BP 129/62
--- NOTE | 2017-08-14 16:31 | NUR ---
PTS CURRENT IV INFILTRATED. IV CATHETER REMOVED WITH CATHETER TIP INTACT, DRESSING APPLIED. RESTARTED 22 G IV TO LEFT FA X3 STICK. DRESSING CDI. WILL CTM.
--- NOTE | 2017-08-14 16:40 | NUR ---
@1016, SPOKE WITH THOMAS IN OUR IPR DEPARTMENT. SHE STATED THAT THEY HAVE RECEIVED A DENIAL ON THE PATIENT AND THAT A P2P COULD BE DONE BUT HAD TO BE SET UP BEFORE THURSDAY. @9593, SPOKE WITH AYLEEN ABOUT DOING A P2P. SHE ASKED ME TO CALL [facility] AND SEE IF A CERTAIN NOTE FROM DR WALSH HAD BEEN SENT AND IF NOT COULD THEY SEND IT AND CALL AND HAVE THEM RECONSIDER THE DENIAL. CALLED AND SPOKE WITH [facility] RN AND SHE STATED THAT SHE WAS UNSURE IF THE SPECIFIC NOTE HAD BEEN SENT OR NOT. SHE THEN STATED ONCE THEY GET A DENIAL IT IS OUT OF THEIR HANDS AND IN THE MEDICAL DIRECTORS HANDS. I QUESTIONED HER, ASKING IF THEY COULD NOT CALL AND ASK FOR A RECONSIDERATION BASED ON PARTICULAR INFORMATION, BECAUSE I DO IT ALL THE TIME WITH PATIENTS HERE ON THE FLOOR. SHE AGAIN STATED NO AND SHE PULLED THE P2P INFORMATION FROM THE CHART, STATING THEY HAVE NOT GOTTEN AN OFFICIAL LETTER YET. SHE SAID A P2P COULD BE SET UP BY CALLING YULI JOHNSON AT [phone]. AYLEEN SAID TO GIVE HER THE INFORMATION AND SHE WOULD HAVE DR LOVELACE SET UP A P2P BECAUSE THE PATIENT NEEDED REHAB. SHE QUESTIONED IF THE PATIENT COULD GO TO A DIFFERENT REHAB, AND IT WAS EXPLAINED THAT IF SHE WAS WILLING WE COULD SEND THE INFORMATION, BUT THE PATIENT WOULD HAVE TO BE WILLING. THEN REINFORCED THAT WE WOULD HAVE TO WAIT FOR THE INSURANCE AUTH TO GO THROUGH AGAIN, AND THEY MAY OR MAY NOT APROVE. AYLEEN THEN STATED THAT SHE WOULD TALK TO DR LOVELACE AND GET THE P2P SET UP. INFORMATION WAS WRITTEN DOWN ON A STICKY NOTE FOR HER. WILL WAIT FOR THE DETERMINATION.
--- NOTE | 2017-08-14 18:34 | NUR ---
PT UP TO BSC. RR EVEN AND UNLABORED. ASSISTED PT BACK TO BED. DENIES FURTHER NEEDS AT THIS TIME. WILL GIVE REPORT ON PT CONDTION FOR THE DAY.
[2017-08-14 19:00] VITALS: BP 155/68
--- NOTE | 2017-08-14 19:20 | NUR ---
PT RESTING IN BED. C/O FEELING WEAK AND WANTS ICE CREAM TO HELP SETTLE HER STOMACH. PT HAS LR INFUSING TO LEFT FOREARM ORDERED. PT ASKS TO BE SHOWN HOW TO SIGN INTO WIFI. PT DENIES ANY OTHER NEEDS. NO S/S OF DISTRESS. WILL CPOC
[2017-08-15] VITALS (8 sets, daily range): BP systolic 138–183; BP diastolic 67–88
--- NOTE | 2017-08-15 | NUR ---
PT RESTING IN BED. C/O PAIN. TOLD PT PAIN MED WILL NOT BE AVALIBLE UNTIL AFTER 0200, PT SAID OK. TOLD PT TO CALL ME WHEN SHE IS IN PAIN AND I WILL BRING IT, I WILL NOT WAKE HER UP TO TAKE THE PAIN MED. SHE AGREED. PT HAS NO S/S OF DISTRESS. DENIES ANY NEEDS. BED LOW AND CALL LIGHT IN REACH. WILL CPOC
--- NOTE | 2017-08-15 02:06 | NUR ---
PT ASLEEP. RESPIRATIONS EVEN AND UNLABORED. NO S/S OF DISTRESS. BED LOW AND CALL LIGHT IN REACH. WILL CPOC
--- NOTE | 2017-08-15 05:59 | NUR ---
PT STATES SHE IS HURTING ALL OVER. PAIN MED GIVEN. PT DENIES ANY NEEDS. NO S/S OF DISTRESS. WILL CPOC
--- NOTE | 2017-08-15 07:51 | NUR ---
PT SITTING UP IN BED SLEEPING NO S/S DISTRESS NOTED RR EVEN AND UNLABORED WILL CONT TO MONITOR
--- NOTE | 2017-08-15 08:45 | NUR ---
PT PIV INFILTRATED DC WITH CATH TIP INTACT
--- NOTE | 2017-08-15 10:00 | NUR ---
CALLED TO PT ROOM. PT WAS UP TO BSC WITH POLICE CAPTAIN, COMPLAINTS OF DIZZINESS. PT PASSED OUT ON THE TOILET. HELPED PT BACK INTO BED. PT BP IS 183/88. AYLEEN SULLIVAN PAGED.
--- NOTE | 2017-08-15 13:10 | NUR ---
TALKED WITH AYLEEN ABOUT PT PASSING OUT THIS AM. SAID TO DO ORTHOS, WILL RELAY TO INSPECTOR PLATING
--- NOTE | 2017-08-15 17:36 | NUR ---
PT SITTING UP IN BED EATING DINNER HELPED TO BSC AGAIN. DENIES OTHER NEEDS WILL CONT TO MONITOR
--- NOTE | 2017-08-15 19:07 | NUR ---
PT BP 206/99 IN RIGHT ARM. 202/105 IN LEFT ARM. PT C/O 10/10 PAIN IN HIPS, AND C/O NAUSEA. DR LOVELACE GAVE ORDERS FOR CLONIDINE 0.1 Q4H PRN FOR SYSTOLIC OVER 160 AND ZOFRAN 4MG Q4H PRN WILL CPOC
--- NOTE | 2017-08-15 19:35 | NUR ---
PT RESTING IN BED. AAO X3. PT IS SCARED SHE IS GOING TO HAVE ANOTHER STROKE. PT SOBBING AND CRYING. WILL GIVE 2100 MEDS AND SEE IF KLONOPIN HELPS WITH ANXIETY. PT DENIES ANY NEEDS. NO S/S OF DISTRESS. WILL CPOC
--- NOTE | 2017-08-15 21:12 | NUR ---
PT UP TO BSC. X1 ASSIST. PT C/O PAIN 06/04. WILL GIVE PAIN MED SOON TIME. PT DENIES ANY OTHER NEEDS. NO S/S OF DISTRESS. BP STARTED INCREASING AGAIN. 185/89
[2017-08-16 01:40] VITALS: BP 127/61
[2017-08-16 05:36] LABS: BASOPHILS 0.3 % (0-2); EOSINOPHILS 3.4 % (0-7); HEMATOCRIT 32.5 % (36.0-48.0); HEMOGLOBIN 10.3 g/dL (12-16); IMMATURE GRANULOCYTES 0.4 % (0-5); LYMPHOCYTES 28.7 % (15-50); MCHC 31.7 g/dL (31.0-37.0); MCV 88.3 fL (80.0-100.0); MEAN PLATELET VOLUME 10.7 fL (7.4-10.4); MONOCYTES 11.8 % (2-11); NEUTROPHILS 55.4 % (40-80); PLATELET COUNT 224 10x3/uL (130-400); RBC 3.68 10x6/uL (4.00-5.40); RDW 14.1 % (11.5-14.5)
[2017-08-16 05:49] LABS: ANION GAP 9.8 mmol/L (8-16); CALCIUM 8.8 mg/dL (8.5-10.1); CARBON DIOXIDE 27.2 mmol/L (21.0-32.0); CREATININE - SERUM 0.9 mg/dL (0.6-1.3)
[2017-08-16 05:52] VITALS: BP 107/62
--- NOTE | 2017-08-16 05:59 | NUR ---
PT ASLEEP. RESPIRATIONS EVEN AND UNLABORED. 2L O2 NC AROUSES TO VERBAL STIMULI. PT C/O PAIN. PRN PAIN MED GIVEN. PT DENIES ANY OTHER NEEDS AT THIS TIME. NO S/S OF DISTRESS. WILL CPOC
[2017-08-16 08:00] VITALS: BP 129/77
[2017-08-16 12:00] VITALS: BP 143/76
[2017-08-16 16:00] VITALS: BP 126/84
--- NOTE | 2017-08-16 19:20 | NUR ---
ROUNDING NOTE: PT UP IN BED REQUESTING TO USE BEDSIDE COMMODE. ASSISTED PT TO BEDSIDE COMMODE. PT HAS NO IV ACCESS CURRENTLY. SHE IS SINUS RHYTHM ON THE MONITOR. PT IS ALERT AND ORIENTED WITH SOME CONFUSION AT TIMES. D/C PLAN IS INPATIENT REHAB LIKELY TOMORROW. WILL CONT TO MONITOR.
[2017-08-16 20:25] VITALS: BP 187/99
[2017-08-17 00:51] VITALS: BP 147/65
[2017-08-17 05:19] VITALS: BP 120/61
--- NOTE | 2017-08-17 06:01 | NUR ---
PT SPILLED HER COFFEE ALL OVER. ASSISTED CLEANING UP, EVS CAME TO MOP UP THE FLOOR, AND I GOT THE PT A NEW CUP OF COFFEE. PT HAS BEEN UP TO THE BEDSIDE COMMODE SEVERAL TIMES DURING SHIFT. NO COMPLIANTS. WILL CONT TO MONITOR.
[2017-08-17 06:30] LABS: BASOPHILS 0.3 % (0-2); HEMATOCRIT 35.4 % (36.0-48.0); HEMOGLOBIN 11.2 g/dL (12-16); IMMATURE GRANULOCYTES 0.6 % (0-5); LYMPHOCYTES 23.5 % (15-50); MCH 28.1 pg (26.0-34.0); MCHC 31.6 g/dL (31.0-37.0); MCV 88.9 fL (80.0-100.0); MEAN PLATELET VOLUME 10.8 fL (7.4-10.4); MONOCYTES 10.5 % (2-11); NEUTROPHILS 63.1 % (40-80); PLATELET COUNT 257 10x3/uL (130-400); RBC 3.98 10x6/uL (4.00-5.40); RDW 14.2 % (11.5-14.5)
[2017-08-17 06:58] LABS: ANION GAP 10.6 mmol/L (8-16); CALCIUM 9.6 mg/dL (8.5-10.1); CARBON DIOXIDE 29.6 mmol/L (21.0-32.0); CREATININE - SERUM 0.9 mg/dL (0.6-1.3); POTASSIUM - SERUM 4.2 mmol/L (3.5-5.1)
[2017-08-17 08:21] VITALS: BP 179/86
--- NOTE | 2017-08-17 08:57 | NUR ---
ASSESSMENT DONE. DENIES NEEDS,
--- NOTE | 2017-08-17 10:35 | NUR ---
RESP UL ON . CLAUDIA NEEDS AT THIS TIME. CALL LIGHT IN REACH.
[2017-08-17 12:26] VITALS: BP 116/56
[2017-08-17 15:58] VITALS: BP 140/73
--- NOTE | 2017-08-17 17:05 | NUR ---
Rehab Note- Received an acute rehab prescrenn order. The patient has been denied an acute rehab stay per her insurance provider [facility]. Thank you for this referral! Jaz Meng RN Clinical Liaison, [facility] Rehab
--- NOTE | 2017-08-17 17:43 | NUR ---
WITHOUT CHANGES OR DISTRESS NOTED AT THIS TIME. DENIES NEEDS
--- NOTE | 2017-08-17 19:10 | NUR ---
ROUNDING NOTE: PT VISITING WITH FAMILY AT THE BEDSIDE. PT REQUESTING WATER AND PAIN MEDS BEFORE BED. PLAN IS FOR PT TO GO TO REHAB, POSSIBLY TOMORROW. WILL CONT TO MONITOR.
[2017-08-17 19:32] VITALS: BP 164/71
[2017-08-18] VITALS: BP 134/58
[2017-08-18 04:04] VITALS: BP 143/66
[2017-08-18 04:23] LABS: BASOPHILS 0.2 % (0-2); HEMATOCRIT 34.1 % (36.0-48.0); IMMATURE GRANULOCYTES 0.4 % (0-5); LYMPHOCYTES 21.2 % (15-50); MCH 28.4 pg (26.0-34.0); MCHC 32.3 g/dL (31.0-37.0); MCV 87.9 fL (80.0-100.0); MONOCYTES 11.1 % (2-11); NEUTROPHILS 65.1 % (40-80); PLATELET COUNT 267 10x3/uL (130-400); RBC 3.88 10x6/uL (4.00-5.40); RDW 14.1 % (11.5-14.5); WBC 9.1 10x3/uL (4.8-10.8)
[2017-08-18 04:48] LABS: ANION GAP 12.3 mmol/L (8-16); CALCIUM 8.9 mg/dL (8.5-10.1); CARBON DIOXIDE 27.3 mmol/L (21.0-32.0); CREATININE - SERUM 1.1 mg/dL (0.6-1.3); POTASSIUM - SERUM 3.6 mmol/L (3.5-5.1)
--- NOTE | 2017-08-18 07:20 | NUR ---
AM ROUNDS- PT ASKING FOR PAIN MEDS. INFORMED PT THAT MATE FIRST NURSE GAVE HER PAIN MED AROUND 0513 THIS AM. PT STATES " IT STILL HAS NOT HELPED WITH THE PAIN." PT DENIES ANY OTHER NEEDS AT THIS TIME. RESP EVEN AND UNLABORED, NO IV ACCESS. BED LOW AND WHEELS LOCKED, BEDSIDE RAILS X2, CALL LIGHT IN REACH, NAD NOTED, WILL CONTINUE TO MONITOR.
[2017-08-18 08:11] VITALS: BP 141/76
--- NOTE | 2017-08-18 08:49 | NUR ---
AM MEDS GIVEN AT THIS TIME. ALSO GAVE NORCO FOR PAIN LEVEL OF 10/10. PT IN BED, DENIES ANY OTHER NEEDS AT THIS TIME. CALL LIGHT IN REACH, NAD NOTED, WILL CONTINUE TO MONITOR.
--- NOTE | 2017-08-18 10:34 | NUR ---
Nutrition Follow Up: Chart reviewed. Pt is eating 83% meal avg on an AHA diet. +BM. Meds and labs reviewed. Pt continues at low nutritional risk. RD following.
--- NOTE | 2017-08-18 11:36 | NUR ---
PT IN BED, STILL C/O OF BILAT HIP PAIN. STATES THAT SHE IS NOT ABLE TO MOVE HER HIP MUCH DUE TO THE PAIN. PT DENIES ANY NEEDS AT THIS TIME. CALL LIGHT IN REACH, NAD NOTED, WILL CONTINUE TO MONITOR.
[2017-08-18 11:55] VITALS: BP 126/55
--- NOTE | 2017-08-18 12:42 | NUR ---
PT UP TO CHAIR, EATING LUNCH, DENIES ANY NEEDS AT THIS TIME. CALL LIGHT IN REACH, NAD NOTED, WILL CONTINUE TO MONITOR.
--- NOTE | 2017-08-18 13:38 | NUR ---
PROVIDED PT WITH 4MG OF ZOFRAN PER PT REQUEST, ALSO HELPED PT BACK TO BED, AND RECONNECTED HEART MONITOR. PT DENIES ANY OTHER NEEDS AT THIS TIME. CALL LIGHT IN REACH, NAD NOTED, WILL CONTINUE TO MONITOR.
--- NOTE | 2017-08-18 16:53 | NUR ---
Patient Name: ERIC WARD Encounter No: [id number] : 1940 Primary Insurance: [employer] Anticipated DC Date: 08-11-2017 Planned Disposition: INTERMEDIATE FACLITY External Planned Provider: WAITING PT CHOICE / DECISION DCP follow-up note: CM SPOKE TO DR. CRAIG WHO HAS RECOMMENDED INTERMEDIATE REHAB PT HAS BEEN DENIED BY INSURANCE FOR INPATIENT DESPITE THE PEER TO PEER CONSULT. CM MET WITH PT IN ROOM, DISCUSSED REHAB OPTIONS, INTERMEDIATE, HOME HEALTH AND OUTPATIENT. PT REPORTS SHE IS NOT GOING BACK TO [place]; CM DISCUSSED INTERMEDIATE CHOICES, LEFT CHOICE LETTER WITH CM CONTACT INFORMATION PT REPORTS SHE IS NOT MAKING ANY DECISION UNTIL SHE TALKS TO HER DAUGHTERS. CM ENCOURAGED PT TO FOLLOW DOCTORS ADVICE FOR INTERMEDIATE REHAB. CM ADVISED PT THAT A DECISION NEEDS TO BE MADE SOON POSSIBLE SHE IS STABLE FOR DISCHARGE. PT AGAIN STATES SHE DOES NOT KNOW WHAT TO DO AND WILL LET CM KNOW AFTER SHE SPEAKS TO HER DAUGHTERS. CM ALSO LEFT A HOME HEALTH CHOICE LETTER IN EVENT PT ELECTS TO GO HOME. IMPORTANT MESSAGE FROM MEDICARE PROVIDED AND DISCUSSED. CM WAITING PT'S DECISION REGARDING REHAB AT INTERMEDIATE FACILITY. Jarret Ferreira, CASE MANAGEMENT
--- NOTE | 2017-08-18 17:00 | NUR ---
ADMINISTERED NORCO FOR PAIN LEVEL OF 8/10. PT DENIES ANY OTHER NEEDS AT THIS TIME. CALL LIGHT IN REACH, NAD NOTED, WILL CONTINUE TO MONITOR.
--- NOTE | 2017-08-18 17:22 | NUR ---
OT NOTE: PT COMPLETED BUE AROM EXS FOR INCREASED ACTIVITY TOLERANCE. PT COMPLETED BED MOBILITY WITH MODERATE ASSISTANCE. THANK YOU, ERIC WAYNE/Ashley
--- NOTE | 2017-08-18 17:52 | NUR ---
PROVIDED PT WITH LARGE SIZE SCRUBS AND HELPED PT CHANGE INTO THEM. PT VERY EMOTIONAL STATING " I DONT KNOW WHAT TO DO, THE DOCTORS WANT ME TO GO TO REHAB BUT I HAVE TO TAKE CARE OF SOMEONE AT HOME, HE IS NOT WELL, SO I HAVE TO BE THERE FOR HIM." TOLD PT THAT SHE HAS TO TAKE CARE OF HERSELF FIRST TO BE ABLE TO TAKE CARE OF SOMEONE ELSE. AND TO HAVE SOMEONE ELSE FROM FAMILY GO STAY WITH THE PERSON SHE IS CARING FOR AT HOME. PT CALMED DOWN A LITTLE, DENIES ANY NEEDS AT THIS TIME. CALL LIGHT IN REACH, NAD NOTED, WILL CONTINUE TO MONITOR.
[2017-08-18 19:00] VITALS: BP 135/68
--- NOTE | 2017-08-18 19:30 | NUR ---
ROUNDING NOTE: PT IS LAYING DOWN AND SLEEPING IN BED AT THE CHANGE OF SHIFT. PT IS REQUESTING PAIN MEDICINE, BUT SHE WAS JUST MEDICATED AT 1700; THEREFORE, SHE CANNOT RECEIVE ANY FURTHER PAIN MEDICINE UNTIL 2300. PT HAS NO IV ACCESS CURRENTLY. SHE IS SINUS RHYHTM ON THE MONITOR. D/C PLANNING CONTINUES. SHE WAS SCREENED FOR INPATIENT REHAB, BUT WAS DENIED. WILL CONT TO MONITOR.
--- NOTE | 2017-08-18 22:00 | NUR ---
PT HAS CONCERNS ABOUT THE CHANGE TO HER PAIN MEDICINE FREQUENCY FROM Q4 HOURS TO Q6 HOURS B/C SHE THINKS THAT IS TOO LONG. SHE HAS CHRONIC HIP PAIN, WHICH HAS BEEN WORSE SINCE HER LAST FALL. ALSO SHE IS UPSET THAT HER KLONOPIN WAS DECREASED FROM 2MG TID TO 1MG TID. SHE STATES THAT SHE HAS TAKEN THE KLONOPIN FOR GENERALIZED ANXIETY AND PANIC ATTACKS FOR THE LAST 20 YEARS. PT STATES THAT SHE WILL ADDRESS THESE CONCERNS WITH THE MD TOMORROW. WILL CONT TO MONITOR.
[2017-08-19] VITALS: BP 140/69
--- NOTE | 2017-08-19 02:00 | NUR ---
PT WOKE UP REQUESTING HER PRN PAIN MED. GIVEN PER MD ORDER. SHE COULD HAVE HAD IT EARLY 2300, BUT PT WAS SLEEPING AT THAT TIME. WILL CONT TO MONITOR.
[2017-08-19 04:00] VITALS: BP 116/64
[2017-08-19 05:45] LABS: BASOPHILS 0.3 % (0-2); EOSINOPHILS 1.9 % (0-7); HEMATOCRIT 35.2 % (36.0-48.0); HEMOGLOBIN 11.3 g/dL (12-16); IMMATURE GRANULOCYTES 0.5 % (0-5); LYMPHOCYTES 19.2 % (15-50); MCH 28.2 pg (26.0-34.0); MCHC 32.1 g/dL (31.0-37.0); MCV 87.8 fL (80.0-100.0); MEAN PLATELET VOLUME 11.3 fL (7.4-10.4); MONOCYTES 11.2 % (2-11); NEUTROPHILS 66.9 % (40-80); PLATELET COUNT 300 10x3/uL (130-400); RBC 4.01 10x6/uL (4.00-5.40); RDW 13.8 % (11.5-14.5); WBC 10.2 10x3/uL (4.8-10.8)
[2017-08-19 05:55] LABS: CALCIUM 8.9 mg/dL (8.5-10.1); CARBON DIOXIDE 27.8 mmol/L (21.0-32.0); CREATININE - SERUM 0.9 mg/dL (0.6-1.3); POTASSIUM - SERUM 3.8 mmol/L (3.5-5.1)
--- NOTE | 2017-08-19 07:28 | NUR ---
AM ROUNDS- PT IN BED, RESP EVEN AND UNLABORED, NO IV ACCESS NOTED. JEWEL BEARING TURNER AT BEDSIDE TO GET VITAL SIGNS. PT DENIES ANY NEEDS AT THIS TIME. CALL LIGHT IN REACH, NAD NOTED, WILL CONTINUE TO MONITOR.
[2017-08-19 07:45] VITALS: BP 153/75
--- NOTE | 2017-08-19 09:22 | NUR ---
ADMINISERED CEDRIC FOR PAIN LEVEL OF 10/10. PT IN BED, DENIES ANY OTHER NEEDS AT THIS TIME. CALL LIGHT IN REACH, NAD NOTED, WILL CONTINUE TO MONITOR.
--- NOTE | 2017-08-19 10:37 | NUR ---
PT PLACED ON 2L NC.
--- NOTE | 2017-08-19 10:38 | NUR ---
REASON FOR APPLICATION SP02 90% ON RA.
--- NOTE | 2017-08-19 11:50 | NUR ---
OT NOTE: PT REPORTED THAT SHE HAD JUST TAKEN A WALK. PRACTICED BED MOB AND AROM EXS; PT CONT TO C/O HIP PAIN AND REQUIRES MIN/MOD ASSIST WITH SUPINE TO SIT. DISCUSSED WITH PT THE BENEFITS OF CONTINUED THERAPY, SHE IS REQUIRING INCREASED ASSIST COMPARED TO PLOF. SHE REPORTS THAT SON CAN CARE FOR HER, BUT REMINDED PT THAT SHE HAD JUST TOLD ME THAT SHE NEEDED TO GET HOME AND CARE FOR HIM , HE IS NOT WELL. EXPLAINED THAT SHE WOULD HAVE INCREASED DIFFICULTY AT HOME RIGHT NOW
--- NOTE | 2017-08-19 12:33 | NUR ---
PT IN BED WITH EYES CLOSED, EASILY AROUSES TO VOICE. PT DENIES ANY NEEDS AT THIS TIME. CALL LIGHT IN REACH, NAD NOTED, WILL CONTINUE TO MONITOR.
[2017-08-19 12:53] VITALS: BP 134/70
[2017-08-19 16:07] VITALS: BP 139/73
--- NOTE | 2017-08-19 16:30 | NUR ---
Patient Name: ERIC WARD Encounter No: [id number] : 1940 Primary Insurance: [employer] Anticipated DC Date: 08-20-2017 Planned Disposition: Senior Living Facility External Planned Provider: [facility], MEDICARE REHAB BED DCP follow-up note: CM SPOKE TO PT IN ROOM REGARDING DISCHARGE PLANNING. AFTER LENGTHY CONVERSATION REGARDING OPTIONS FOR REHAB SERVICES, PT REPORTS SHE WOULD LIKE REFERRAL SENT TO [facility], CHOICE SIGNED. CM RECEIVED CALL FROM JENNIFER ESCBOAR, , WHO REPORTS TO BE PT'S ADOPTED DAUGHTER WHO REPORTS THAT PT NEEDS REHAB AND RECOMMENDS [facility]. CM ADVISED JENNIFER TO CALL PT IN ROOM. CM NOTIFIED PT THAT HER "DAUGHTER" HAD CALLED. CM [facility], , SPOKE TO [place], BED AVAILABLE FOR REHAB. CM FAXED REFERRAL TO [facility]. PSYCHIATRY NOTE INDICATED PT TO HAVE DIAGNOSIS OF ANXIETY DISORDER, WHICH WILL REQUIRE KEDAR SCREENING. CM NOTIFIED DR. CRAIG AND WILL COMPLETE KEDAR FOR SCREENING. CM WAITING ADMISSION DETERMINATION FROM [facility]. CM WILL COMPLETE KEDAR AND SUBMIT FOR SCREENING AND APPROVAL FOR ADMISSION TO INTERMEDIATE FACILITY. Jarret Ferreira, CASE MANAGEMENT
--- NOTE | 2017-08-19 17:34 | NUR ---
OT NOTE: PT COMPLETED BED MOB AND SITTING AT EOB WITH SPV. PT COMPLETED SIT TO STAND WITH SBA. PT COMPLETED ADL WITH SPV AT EOB. THANK YOU, ERIC WAYNE/Ashley
[2017-08-19 19:00] VITALS: BP 165/86
--- NOTE | 2017-08-19 19:53 | NUR ---
RESUMED CARE OF PT, LYING IN BED RESPIRATIONS EVEN AND UNLABORED ON 2LPM VIA NC. 67 SR ON TELEMETRY. REQUESTS PAIN PILL FOR HIP PAIN. CALL LIGHT IN REACH. WILL CONTINUE TO MONITOR. SEE NURSE ASSESSMENT.
[2017-08-20] VITALS: BP 123/68
--- NOTE | 2017-08-20 05:18 | NUR ---
CALL LIGHT IN REACH, WILL CONTINUE WITH PLAN OF CARE.
[2017-08-20 05:24] VITALS: BP 162/55
--- NOTE | 2017-08-20 05:44 | CN ---
PATIENT NAME:ERIC WARD MEDICAL RECORD: [id number] : [birth year] LOCATION:[facility] D.2133 ADMIT DATE: 08/11/17 ACCOUNT: [id number] CONSULTING PHYSICIAN: CHANDRAKANT MESSER III, MD REFERRING PHYSICIAN: JOSÉ LUIS HINTON MD DATE OF CONSULTATION: 08/19/2017 FINDINGS: A 77-year-old single white female admitted to the hospital for weakness and syncopal episodes. The patient has a past history of CVA. She has numerous other problems including hypertension. The patient at the present time remains hospitalized pending decision regarding discharge. The primary care physician had recommended inpatient rehabilitation, but this has been denied by her insurance company. The patient is now weighing her options regarding either going home or pursuing an alternative. The patient does have a past history of generalized anxiety with intermittent depressive symptoms. She has in the past been treated with Klonopin, dosage has recently been reduced. The patient states that she is not feeling as well since the reduction has occurred. MENTAL STATUS EXAM: The patient is very pleasant. Affect is bland. Mood is euthymic. Speech is fluent. Content of thought is negative for psychosis or suicidalities. Sensorium is clear. 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 RECOMMENDATIONS: 1. I feel the patient likely could benefit from resumption of her previous dose of Klonopin unless concern exists regarding abuse potential. 2. Would add Lexapro 10 mg daily for depressive symptoms. 3. We will follow with you as needed. The patient is not a candidate for penitentiary. TRANSINT:[id number] Voice Confirmation ID: [id number] DOCUMENT ID: [id number] CHANDRAKANT MESSER III, MD at 0544 CC: [id number] DICTATION DATE: 08/19/17 1215 CASINO BANKER: 08/19/17 1257 ADM IN [facility] [address] [place] [address]
[2017-08-20 06:02] LABS: BASOPHILS 0.3 % (0-2); EOSINOPHILS 1.4 % (0-7); HEMATOCRIT 34.9 % (36.0-48.0); HEMOGLOBIN 11.3 g/dL (12-16); IMMATURE GRANULOCYTES 0.5 % (0-5); LYMPHOCYTES 19.9 % (15-50); MCH 28.3 pg (26.0-34.0); MCHC 32.4 g/dL (31.0-37.0); MCV 87.5 fL (80.0-100.0); MEAN PLATELET VOLUME 11.2 fL (7.4-10.4); MONOCYTES 13.3 % (2-11); NEUTROPHILS 64.6 % (40-80); PLATELET COUNT 308 10x3/uL (130-400); RBC 3.99 10x6/uL (4.00-5.40); RDW 13.8 % (11.5-14.5); WBC 9.6 10x3/uL (4.8-10.8)
[2017-08-20 06:12] LABS: ANION GAP 11.5 mmol/L (8-16); CALCIUM 8.9 mg/dL (8.5-10.1); CARBON DIOXIDE 27.3 mmol/L (21.0-32.0); CREATININE - SERUM 0.9 mg/dL (0.6-1.3); POTASSIUM - SERUM 3.8 mmol/L (3.5-5.1)
--- NOTE | 2017-08-20 07:30 | NUR ---
Patient alert and awake. Patient reports discomfort. Heart rate 69. Oxygen via nasal cannula 2 liters. No IV. SCDs in place. Telemetry shows sinus rythum. Up to bedside commode.
[2017-08-20 08:07] VITALS: BP 144/73
--- NOTE | 2017-08-20 09:46 | NUR ---
RESTING QUIETLY RESP UNLABORED WATCHING TV DENIES ANY NEEDS OR DISCOMFORT AT THIS TIME
[2017-08-20 11:53] VITALS: BP 146/76
--- NOTE | 2017-08-20 13:13 | NUR ---
Patient Name: ERIC WARD Encounter No: [id number] : 1940 Primary Insurance: [employer] Anticipated DC Date: 08-20-2017 Planned Disposition: Residential Facility External Planned Provider: to be determined DCP follow-up note: CM COMPLETED KEDAR WITH PT'S AND DOCTORS ASSISTANCE. CM FAXED KEDAR AND ASSOCIATED DOCUMENTS TO [employer] [facility] AT [phone]. CM RECEIVED CALL FROM [facility], , WHO REPORTED THAT THEY CANNOT MEET PT'S NEEDS. CM TO SPEAK TO PT REGARDING SECOND CHOICE FOR DETENTION REHAB. CM WAITING KEDAR APPROVAL FOR ADMISSION TO DETENTION FACILITY. Jarret Ferreira, CASE MANAGEMENT
--- NOTE | 2017-08-20 13:33 | NUR ---
PATIENT IN BED AWAKE AND ALERT. PATIENT REPORTS PAIN LEVEL A 8 FROM A 0 TO 10. PATIENT REPORTS PAIN IN HER RIGHT HIP AND THE LEFT SIDE OF HER HEAD.
--- NOTE | 2017-08-20 15:41 | NUR ---
Patient resting, reports pain level a 5 out of 10. Up to bed side cammode with no assistance. She is able to clean herself up while standing but is unsteady.
--- NOTE | 2017-08-20 18:41 | NUR ---
PATIENT SITTING UP IN BED EATTING DINNER.ALERT AND ORIENTED. C/O PAIN IN RIGHT HIP, AND REPORTS THAT THE X RAY TECHS TOOK AN XRAY OF THE LEFT HIP, WHEN IT IS THE RIGHT THAT IS HURTING. REPORTS A PAIN LEVEL OF 7. TELEMETRY SHOWS 68 SR.
--- NOTE | 2017-08-20 19:17 | NUR ---
OT NOTE: PT COMPLETED BED MOB WITH SPV. PT COMPLETED HYGIENE AND GROOMING TASKS AT EOB WITH SPV. PT COMPLETED DYNAMIC SITTING BALANCE WITH SPV. THANK YOU, BETO WAYNE
--- NOTE | 2017-08-20 19:52 | NUR ---
PT IN BED RESTING QUIETLY. DENIES ANY PAIN OR NEEDS AT THIS TIME. BED IN LOW POSITION, CALL LIGHT WITHIN REACH. WILL CTM.
[2017-08-20 20:24] VITALS: BP 138/69
[2017-08-21 00:12] VITALS: BP 112/55
--- NOTE | 2017-08-21 01:34 | NUR ---
PT IN BED RESTING QUIETLY. DENIES ANY PAIN OR NEEDS AT THIS TIME. WILL CPOC.
[2017-08-21 05:17] VITALS: BP 130/68
--- NOTE | 2017-08-21 07:30 | NUR ---
REPORT RECEIVED. PT REPORTING PAIN IN HER BACK. PT JUST HAD PAIN MEDICATION, EXPLAINED TO PT THAT I WOULD GIVE HER PAIN MED WHEN IT WAS TIME AGAIN. ASSESSMENT PERFORMED. WILL CTM.
[2017-08-21 08:22] VITALS: BP 110/66
--- NOTE | 2017-08-21 09:25 | NUR ---
Patient Name: ERIC WARD Encounter No: [id number] : 1940 Primary Insurance: [id number] Anticipated DC Date: 08-21-2017 Planned Disposition: [facility] Facility External Planned Provider: [facility] OR [facility], MEDICARE REHAB BED DCP follow-up note: CM SPOKE TO PT LATE YESTERDAY AFTERNOON WHO WAS STILL WAITING TO TALK TO HER DIRECTOR REGULATORY COMPLIANCE REGARDING LONG-TERM FACILITY REHAB CHOICES. CM EXPLAINED TO PT THAT SHE IS AND HAS BEEN STABLE FOR DISCHARGE. CM DISCUSSED LOCAL CHOICES PER THE CHOICE FORM, ENCOURAGED PT TO MAKE TOP TWO CHOICES, LET CM SEND REFERRAL AND IF THAT CHANGES WHEN SHE TALKS TO HER DIRECTOR REGULATORY COMPLIANCE, THAT CM CAN CANCEL THEM IF NEEDED. PT CHOICE SIGNED FOR THE [facility] AND [facility] AT ABOUT 1630 HOURS. ON TODAY, 08-21-17, CM CALLED KATE, CLINICAL LIAISON FOR THE [facility], , ASKED FOR ASSESSMENT FOR REHAB ADMISSION SOON POSSIBLE. CM FAXED REFERRAL TO THE [facility] VIA KATE AT [phone]. CM CALLED SIDNEY OF [facility], , ASKED FOR ASSESSMENT FOR REHAB ADMISSION SOON POSSIBLE. CM FAXED REFERRAL TO THE [facility] AT [phone]. CM WAITING ADMISSION DETERMINATIONS FROM THE [facility]. Jarret Ferreira, CASE MANAGEMENT
--- NOTE | 2017-08-21 10:52 | NUR ---
OT NOTE: PT DOING BETTER TODAY. CONT TO C/O HIP PAIN. PRACTICED BED MOB WITH SUPERVISION INCLUDING ROLLING SIDE TO SIDE, SCOOTING UP IN BED, AND SUPINE TO SIT / SIT TO SUPINE. PERFORMED STANDING ACT AND TESTED STATIC/DYNAMIC STANDING.. REMAINS FAIR- LEVEL. ALSO PERFORMED TRUNK STRENGTHENING EXS WITH SPV. PERFORMED B UE EXS ON EDGE OF BED TO INCLUDE ALL JOINTS
[2017-08-21 12:39] VITALS: BP 115/56
[2017-08-21] MEDS ORDERED: LIPITOR20 MG PO (13:18)
[2017-08-21] MEDS ORDERED: CELEXA20 MG PO (13:19)
--- NOTE | 2017-08-21 14:23 | NUR ---
Patient Name: ERIC WARD Encounter No: [id number] : 1940 Primary Insurance: [id number] Anticipated DC Date: 08-21-2017 Planned Disposition: Nursing Home Facility External Planned Provider: [facility] [place] [place] MEDICARE REHAB BED DCP follow-up note: CM RECEIVED CALL FROM SIDNEY AT [facility], , THEY WILL ACCEPT FOR REHAB TODAY. CM RECEIVED CALL FROM KATE OF [facility] [place], , THEY WILL ACCEPT PT TODAY FOR REHAB. CM SPOKE TO PT IN ROOM, PT WANTS TO GO TO THE [facility] [place] AND REPORTS WILLINGNESS FOR DISCHARGE TO REHAB TODAY. CM NOTIFIED SIDNEY AT [place] AND KATE AT THE [facility] [place]. CM FAXED DISCHARGE INFORMATION TO [facility] [place] AT [phone]. FOR DISCHARGE TO THE [facility] [place] [facility],; NURSE REPORT TO BE CALLED TO THE [facility] [place] [place] AT [phone]. THE [facility] [place] TO ARRANGE VAN TRANSPORATION. Jarret Ferreira, CASE MANAGEMENT
--- NOTE | 2017-08-21 14:30 | NUR ---
PT DISCHARGED. RR EVEN AND UNLABORED. TELE REMOVED AND RETURNED TO IP LITIGATION PAR[place]GAL. PT SIGNED PAPERWORK, WENT OVER D/C INSTRUCTIONS AND MEDS. WILL GIVE COPY TO [facility] STAFF WHEN THEY ARRIVE FOR TRANSPORT. PT WILL BE GOING TO [facility] FOR REHAB. WILL CTM UNTIL PT LEAVES FLOOR.
--- NOTE | 2017-08-21 16:56 | OP ---
PATIENT NAME: ERIC AWRD MEDICAL RECORD: [id number] :[birth year] LOCATION:D.M2 D.2133 ADMISSION DATE:08/11/17 SURGEON: LINDA VERONICA MD DATE OF OPERATION: 08/10/2017 PROCEDURES: 1. PTCA stent to RCA. 2. Intravascular ultrasound to RCA. 3. Left heart catheterization. 4. Selective coronary angiography. 5. Left ventriculogram. INDICATION: Angina and coronary artery disease. PROCEDURE IN DETAIL: After informed consent was obtained and after detailed explanation of risks, benefits as well as alternative therapies, the patient elected to proceed with angiogram and angioplasty. The right femoral area was prepped and draped in normal sterile fashion. The right femoral artery was cannulated via modified Seldinger technique with placement of 6-Luxembourgish sheath. All catheters exchanged through this sheath. FINDINGS: Left ventriculogram was performed in standard 30-degree HODGE view reveals good cardiac wall motion throughout all segments. Overall ejection fraction estimated 60%. SELECTIVE CORONARY ANGIOGRAPHY: 1. Left main showed no significant angiographic disease. 2. Left anterior descending has previously placed stents, these are widely patent with no significant restenosis. No disease elsewise throughout the LAD or its branches. 3. The left circumflex has previously placed stents, these are widely patent with no significant restenosis. No disease elsewise throughout the circumflex or its branches. 4. The right coronary has previously placed stents; however, in the proximal ostial area, there was greater than 80% stenosis confirmed by intravascular ultrasound. PTCA STENT OF THE RCA: The stent used was a 3.0 x 15 mm Raymond. Result was 0% residual stenosis. OVERALL IMPRESSION: Successful percutaneous transluminal coronary angioplasty stent of the right coronary artery going from 80% initial stenosis to 0% residual stenosis. TRANSINT:[id number] Voice Confirmation ID: [id number] DOCUMENT ID: [id number] LINDA VERONICA MD at 1659 CC: [id number] DICTATION DATE: 08/10/17 1101 INSTALLER SOFT TOP: 08/10/17 1156 DIS IN 08/21/17 [facility] [address] [id number]
--- NOTE | 2017-08-21 16:56 | CN ---
PATIENT NAME:ERIC DEAN MEDICAL RECORD: [id number] : [birth year] LOCATION:[facility] D.2133 ADMIT DATE: 08/11/17 ACCOUNT: [id number] CONSULTING PHYSICIAN: LINDA VERONICA MD REFERRING PHYSICIAN: JOSÉ LUIS HINTON MD DATE OF CONSULTATION: 08/09/2017 CARDIOLOGY CONSULTATION DATE OF SERVICE: 08/09/2017 DIAGNOSES: 1. Angina. 2. Coronary artery disease. 3. Previous percutaneous transluminal coronary angioplasty stent. 4. Hypertension. 5. Fatigue. HISTORY OF PRESENT ILLNESS: Mrs. Dean presents with fatigue and angina and these are the symptomatologies that she has had in the past. She has had hemodynamically significant coronary artery disease. Last cardiac intervention was in February. Her troponin is normal. She continues to have symptoms. PHYSICAL EXAMINATION: GENERAL APPEARANCE: Well-nourished, well-developed, appears stated age. Level of distress, comfortable. PSYCHIATRIC: Mental status, alert, normal affect. Orientation, oriented to time, place and person. EYES: Lids and conjunctiva, noninjected. No discharge, no pallor. ENT: Lips, teeth, gums, normal dentition. Oropharynx, no cyanosis, no pallor. NECK: Carotid arteries, bilateral normal upstroke, no bruits, no thrills. JUGULAR VEINS: No jugular venous pressure or distention. CERVICAL LYMPH NODES: Nontender, nonenlarged. THYROID: Not enlarged. Nontender. No nodules. LUNGS: Respiratory effort, unlabored. CHEST: Normal curvature. No thoracic deformity. No chest wall tenderness. Percussion, resonant. Auscultation, clear. No wheezes, no rales, no rhonchi. CARDIOVASCULAR: Precordial exam, nondisplaced. No heaves or pericardial thrills. Rate and rhythm, regular. Heart sounds, normal S1, normal S2. No S3, no gallop, no rub. Systolic murmur, not heard. Diastolic murmur, not heard. EXTREMITIES: No cyanosis, no edema. Peripheral pulses, full and equal in all extremities, except as noted. No bruits appreciated. ABDOMEN: Soft, nondistended. Normal aorta. No bruit. Nontender. No masses. Liver, nontender, no hepatomegaly. Spleen, nontender, no splenomegaly. MUSCULOSKELETAL: No joint tenderness. No joint swelling. No erythema. NEUROLOGICAL: Normal gait, normal strength, normal tone. SKIN: Warm and dry. REVIEW OF SYSTEMS: The patient reports easy bruising but reports no swollen glands. The patient reports no fever, no night sweats, no significant weight gain, no significant weight loss. No significant exercise tolerance. The patient reports no dry eyes, no irritation, no vision change. Patient reports no difficulty hearing and no ear pain. Patient reports no frequent nose bleeds or nose and sinus problems. Patient reports on arm pain on exertion. No shortness of breath while lying down. No history of heart murmur. Patient CONSULT REPORT [id number] ERIC DEAN reports no cough, no wheezing or coughing up blood. Patient reports no abdominal pain, no vomiting. Normal appetite. No diarrhea and not vomiting blood. No nausea and no constipation. Patient reports no incontinence. No difficulty urinating. No hematuria. No increased frequency. Patient reports no muscle aches. No weakness, no arthralgias, no back pain. No swelling of the extremities. Patient reports no abnormal mole, no jaundice, no rashes. Reports no loss of consciousness. No weakness and no numbness. No seizures, dizziness, or headaches. The patient reports no depression, no sleep disturbance, feeling safe in a relationship and no alcohol abuse. Patient reports on fatigue. Reports no runny nose or sinus pressure. No itching, no hives, and no frequent sneezing. OVERALL IMPRESSION: Anginal symptomatology, past history of coronary artery disease, multivessel percutaneous transluminal coronary angioplasty stent. We will proceed with coronary angiography. Further care depends upon findings of the angiography. TRANSINT:[id number] Voice Confirmation ID: [id number] DOCUMENT ID: [id number] LINDA VERONICA MD at 1656 CC: [id number] DICTATION DATE: 08/09/17 1241 [employer] SPECIALIST: 08/09/17 1726 DIS IN 08/21/17 [id number] [place] [address]
== END 2017-08-21 16:00 | DRG 246 ==
LOC: D.ER 14:23 → D.M2 16:53 → OBSVTIME 16:53 → D.M2 16:53
PROVIDERS: Emergency Medicine; Family Medicine; Internal Medicine Interventional Cardiology; Nurse Practitioner Acute Care; ADMIT Family Medicine
PROC: 4A023N7 Measurement of Cardiac Sampling and Pressure, Left Heart, Percutaneous Approach (ICD-10-PCS; 2017-08-10)
PROC: B2111ZZ Fluoroscopy of Multiple Coronary Arteries using Low Osmolar Contrast (ICD-10-PCS; 2017-08-10)
PROC: B2151ZZ Fluoroscopy of Left Heart using Low Osmolar Contrast (ICD-10-PCS; 2017-08-10)
PROC: 027034Z Dilation of Coronary Artery, One Artery with Drug-eluting Intraluminal Device, Percutaneous Approach (ICD-10-PCS; principal; 2017-08-10 10:00)
PROC: B240ZZ3 Ultrasonography of Single Coronary Artery, Intravascular (ICD-10-PCS; 2017-08-10 10:00)
DX: I25.119 Atherosclerotic heart disease of native coronary artery with unspecified angina pectoris (principal); I63.9 Cerebral infarction, unspecified; I10 Essential (primary) hypertension; F32.9 Major depressive disorder, single episode, unspecified; E11.40 Type 2 diabetes mellitus with diabetic neuropathy, unspecified; R40.2412 Glasgow coma scale score 13-15, at arrival to emergency department; M85.88 Other specified disorders of bone density and structure, other site; M16.12 Unilateral primary osteoarthritis, left hip; F41.1 Generalized anxiety disorder; Z95.5 Presence of coronary angioplasty implant and graft; Z86.73 Personal history of transient ischemic attack (TIA), and cerebral infarction without residual deficits

== ENCOUNTER 2017-10-16 16:14 | Emergency (ER) | payer MEDICARE, MEDICAID ==
[~2017-10-16 16:14] MED LIST changes: +CELEXA20 MG PO; +LIPITOR20 MG PO
== END 2017-10-16 19:15 | disposition home or self-care (01) ==
LOC: D.ER 16:14
DX: L92.9 Granulomatous disorder of the skin and subcutaneous tissue, unspecified (principal); J44.9 Chronic obstructive pulmonary disease, unspecified; Z86.73 Personal history of transient ischemic attack (TIA), and cerebral infarction without residual deficits; E11.9 Type 2 diabetes mellitus without complications

== ENCOUNTER → 2018-01-22 08:21 | Outpatient (CLI) | payer MEDICARE, MEDICAID ==
[~2018-01-22] VITALS: Ht 157.5 cm; Wt 68.2 kg
--- NOTE | ~2018-01-22 | HEMODYNAMI ---
PATIENT:ERIC WARD MEDICAL RECORD: [id number] : 42 LOCATION:[facility] ADMISSION DATE: 01/22/18 Generatedon:01/22/201811:01 Patient name: ERIC WARD Patient #: [id number] SSN: : 1940 Date of study: 01/22/2018 Page: Of Hemodynamic Procedure Report Patient Data Patient Demographics Procedure consent was obtained First Name: ERIC Gender: Female Last Name: ED : 1940 [facility] Initial: S Age: 77 year(s) Patient #: [id number] Race: Additional ID: [id number] Contact details [address]: [address] [place] [address] State: [place] City: [place] Zip code: [address] Past Medical History History of disease Date Diagnosis Comments CAD COPD Hypertension Allergies Allergen Reaction Date Comments Reported Sulfa drugs 10/25/2014 Other allergy 10/25/2014 Darvocet Codeine 10/25/2014 Other allergy 10/25/2014 Artificial Sweeteners Sulfa drugs 03/17/2017 Other allergy 08/10/2017 Sulfa, Darvocet, Artificial sweeteners Other allergy 01/22/2018 Sulfa Admission Admission Data Admission Date: 01/22/2018 Admission Time: 8:21 Lab Results Lab Result Date: 01/22/2018 Lab Result Time: 9:20 Biochemistry Name Units Result Min Max BUN mg/dl 18 --(---*)-- 7 18 Creatinine mg/dl 1 --(--*-)-- 0.6 1.3 CBC Name Units Result Min Max Hematocrit % 39.4 -*(----)-- 42 54 Hemoglobin g/dl 12.8 -*(----)-- 13.5 17.5 Procedure Procedure Types Cath Procedure Diagnostic Procedure [facility] w/Coronaries FFR/IVUS Intra-Coronary IVUS Initial PCI Procedure Coronary Stent Coronary Stent Initial Procedure Description Procedure Date Procedure Date: 01/22/2018 Procedure Start Time: 10:42 Procedure Staff Name Function Keith Smith MD Performing Physician Galo Carrillo RN Nurse Grady Armenta RT Monitor Randolph Bermudez RT Scrub Procedure Data Cath Procedure Fluoroscopy Diagnostic fluoroscopy Total fluoroscopy Time: 3.6 time: 3.6 min min Diagnostic fluoroscopy Total fluoroscopy dose: 400 dose: 400 mGy mGy Contrast Material Contrast Material Type Amount (ml) Isovue 300 89 Entry Location Entry Primary Successful Side Size Upsize Upsize Entry Closure Succes sful Closure Location (Fr) 1 (Fr) 2 (Fr) Remarks Device Remarks Femoral Right 5 Fr 6 Fr Exoseal artery Short Estimated blood loss: 10 ml Diagnostic catheters Device Type Used For End Catheter Placement MULTIPACK Pigtail 5 Fr Procedure catheter MULTIPACK JL 4.0 5Fr Procedure catheter MULTIPACK 3DRC 5Fr Procedure catheter Procedure Complications No complications Procedure Medications Medication Administration Route Dosage Oxygen NC 2 l/min Lidocaine 2% added to field 20 Heparin Flush Bag added to field 2 bags (1000units/500ml NS) 0.9% NaCl I.V. 100 ml/hr Versed I.V. 1 mg Fentanyl I.V. 50 mcg Versed I.V. 1 mg Fentanyl I.V. 50 mcg Heparin Bolus I.V. 4000 units Versed I.V. 1 mg Fentanyl I.V. 50 mcg Versed I.V. 1 mg Fentanyl I.V. 50 mcg Fentanyl I.V. 100 mcg Hemodynamics Rest HGB: 12.8 (g/dl) Heart Rate: 69 (bpm) Snapshots Pre Cath Intra NCS Post Cath Vital Signs Time Heart Resp SPO2 etCO2 NIBP (mmHg) Rhythm Pain Sedation Rate (ipm) (%) (mmHg) Status Level (bpm) 10:13:00 67 24 98 0 168/81(141) NSR 0 (11) 10(A) , No pain 10:17:25 65 23 98 0 173/87(140) NSR 0 (11) 10(A) , No pain 10:21:47 65 17 97 24.8 161/86(135) NSR 0 (11) 10(A) , No pain 10:26:09 57 19 97 34.7 142/70(123) NSR 0 (11) 10(A) , No pain 10:31:23 62 17 93 40.7 129/81(105) NSR 0 (11) 10(A) , No pain 10:35:36 64 16 95 36.9 135/75(114) NSR 0 (11) 10(A) , No pain 10:39:50 63 17 99 39.2 150/75(122) NSR 0 (11) 10(A) , No pain 10:44:08 66 18 85 44.5 134/70(112) NSR 0 (11) 10(A) , No pain 10:48:22 65 16 96 37.7 139/76(114) NSR 0 (11) 10(A) , No pain 10:52:43 63 15 94 36.9 125/70(109) NSR 0 (11) 10(A) , No pain 10:57:35 66 17 97 39.2 174/69(113) NSR 0 (11) 10(A) , No pain Medications Time Medication Route Dose Verified Delivered Reason Notes Effectiveness by by 10:23:25 Oxygen NC 2 Keith Buffie used for l/min Sarah Carrillo RN procedure 10:23:31 Lidocaine 2% added 20ml Keith Keith for local to vial Sarah Smith MD anesthetic field 10:23:37 Heparin Flush added 2 Keith Keith used for Bag to bags Sarah Smith MD procedure (1000units/500ml field NS) 10:23:46 0.9% NaCl I.V. 100 Keith Buffie Per physician ml/hr Sarah Carrillo RN 10:39:28 Versed I.V. 1 mg Keith Buffie for sedation Sarah Carrillo RN 10:39:34 Fentanyl I.V. 50 Keith Buffie for sedation mcg Sarah Carrillo RN 10:43:00 Versed I.V. 1 mg Keith Buffie for sedation Sarah Carrillo RN 10:43:04 Fentanyl I.V. 50 Keith Buffie for sedation mcg Sarah Carrillo RN 10:45:03 Heparin Bolus I.V. 4000 Keith Buffie for verifi ed units Sarah Carrillo RN anticoagulation with dr smith 10:48:33 Versed I.V. 1 mg Keith Buffie for sedation Sarah Carrillo RN 10:48:36 Fentanyl I.V. 50 Keith Buffie for sedation mcg Sarah Carrillo RN 10:52:43 Versed I.V. 1 mg Keith Buffie for sedation Sarah Carrillo RN 10:52:46 Fentanyl I.V. 50 Keith Rosenthal for sedation mcg Sarah Carrillo RN 10:54:25 Fentanyl I.V. 100 Keith Rosenthal for back pain mcg Sarah Carrillo RN Procedure Log Time Note 9:47:17 Galo Carrillo RN sent for patient. Start room use. 9:47:18 Time tracking: Regular hours 9:47:22 Plan of Care:Hemodynamics will remain stable., Cardiac rhythm will remain stable., Comfort level will be maintained., Respiratory function will remain adequate., Patient/ family verbilizes understanding of procedure., Procedure tolerated without complication., Recovers from procedure without complications.. 10:05:39 Patient received from Pre/Post Procedure Room to CCL 2 Alert and oriented. Tansferred to table in Supine position. 10:05:39 Warm blankets applied, and marci hugger turned on for patient comfort. 10:05:40 Correct patient and procedure confirmed by team. 10:05:41 Signed procedure consent form obtained from patient. 10:05:42 ECG and BP/O2 sat monitors applied to patient. 10:05:50 H&P Date Dictated: 01/20/2018 Within 30 days and on chart., H&P Addendum completed by physician on day of procedure. (MUST COMPLETE FOR ALL OUTPATIENTS). 10:05:52 Pre-procedure instructions explained to patient. 10:05:52 Pre-op teaching completed and patient verbalized understanding. 10:05:53 Family in waiting room. 10:05:55 Patient NPO since Midnight. 10:06:09 Patient allergic to Other allergySulfa 10:06:11 Is the patient allergic to Iodine/contrast media? No. 10:11:47 Vital chart was started 10:11:51 Baseline sample Acquired. 10:14:59 Baseline sample Acquired. 10:15:03 Rhythm: sinus rhythm 10:15:04 Full Disclosure recording started 10:15:31 Neuro assessment performed due to pt having history of multiple cva's. pt has mild mouth droop to left side. pt has clear speech, pt has global bilateral weakness to hand strenth, able to hold bilat arms for 3 sec. equal. pupils vijaya at 3. 10:18:53 Is patient on blood thinner?Yes 10:18:55 Patient diabetic? No. 10:18:57 ACC The patient was administered the following blood thiners within the last 24 hours: ACCPlavix 10:19:00 Stroke assessment perfomed by Galo Carrillo (RN) Pre procedure due to Pt history. 10:19:02 Previous problem with sedation/anesthesia? No ? 10:19:04 Snore? No 10:19:05 Sleep apnea? No 10:19:06 Deviated septum? No 10:19:06 Opens mouth fully? Yes 10:19:07 Sticks out tongue? Yes 10:19:12 Airway obstruction? Yes COPD 10:19:14 Dentures? No ? 10:19:20 Pre procedure: right posterior tibial pulse 2+ Normal; easily identifiable; not easily obliterated 10:19:22 Patient pain scale 0/10 ?. 10:19:37 IV patent on arrival in left antecubital with 0.9% NaCl at [facility]. 10:21:07 Lab Result : Creatinine 1 mg/dl 10:21:07 Lab Result : BUN 18 mg/dl 10:21:07 Lab Result : Hemoglobin 12.8 g/dl 10:21:07 Lab Result : Hematocrit 39.4 % 10:21:09 Lab results completed and on chart. 10:21:11 Right groin area was prepped with chlora-prep and draped in sterile fashion 10:21:11 Alarms reviewed by R. N. 10:21:12 Sharps counted by scrub and verified by R.N. 10:23:25 Oxygen 2 l/min NC was administered by Galo Carrillo RN; used for procedure; 10:23:31 Lidocaine 2% 20ml vial added to field was administered by Keith Smith MD; for local anesthetic; 10:23:37 Heparin Flush Bag (1000units/500ml NS) 2 bags added to field was administered by Keith Smith MD; used for procedure; 10:23:46 0.9% NaCl 100 ml/hr I.V. was administered by Galo Carrillo RN; Per physician; 10:23:46 Use device set Femoral Dx 10:23:47 ACIST Syringe (89354) opened to sterile field. 10:23:48 Bag Decanter () opened to sterile field. 10:24:33 Medline Cath Pack ([id number]) opened to sterile field. 10:24:34 ACIST Hand Control (72312) opened to sterile field. 10:24:35 ACIST Manifold (28179) opened to sterile field. 10:24:36 Tegaderm 4 x 4 (1626W) opened to sterile field. 10:24:38 SHEATH 5FR [place] (ZFZ009) opened to sterile field. 10:24:38 DIAGNOSTIC WIRE .035 260cm J wire (422637) opened to sterile field. 10:24:39 DIAGNOSTIC Multipack 5Fr catheter set (VT6474) opened to sterile field. 10:24:40 PERCUTANEOUS ENTRY 19GA needle opened to sterile field. 10:29:55 Physician paged 10:31:13 Zero performed for pressure channel P1 10:38:08 Physician arrived 10:38:08 --------ALL STOP TIME OUT------ 10:38:09 Final Timeout: patient, procedure, and site verified with staff and physician. All members of the team are in agreement. 10:38:10 Right groin site verified by team. 10:38:13 Physical assessment completed. ASA score P 3 - A patient with severe systemic disease as per Keith Smith MD. 10:38:19 Sedation plan: IV Moderate Sedation Medication:Versed, Fentanyl 10:39:28 Versed 1 mg I.V. was administered by Galo Carrillo RN; for sedation; 10:39:34 Fentanyl 50 mcg I.V. was administered by Galo Carrillo RN; for sedation; 10:42:20 Local anesthetic to right femoral artery with Lidocaine 2% by Keith Smith MD.INITIAL ACCESS ONLY 10:42:27 A 5 Fr sheath was inserted into the Right Femoral artery 10:42:34 A MULTIPACK Pigtail 5 Fr catheter was advanced over the wire and used for Procedure. 10:42:46 LV gram done using HODGE 10:42:48 Injector settings: Ml/sec: 10, Volume: 20, 10:43:00 Versed 1 mg I.V. was administered by Galo Carrillo RN; for sedation; 10:43:01 EF : 50 % 10:43:01 LV hemodynamics recorded. 10:43:03 Catheter exchanged over wire. 10:43:04 Fentanyl 50 mcg I.V. was administered by Galo Carrillo RN; for sedation; 10:43:10 A MULTIPACK JL 4.0 5Fr catheter was advanced over the wire and used for Procedure. 10:43:35 LCA angiography performed. 10:44:33 Catheter exchanged over wire. 10:44:38 A MULTIPACK 3DRC 5Fr catheter was advanced over the wire and used for Procedure. 10:44:53 RCA angiography performed. 10:45:03 Heparin Bolus 4000 units I.V. was administered by Galo Carrillo RN; for anticoagulation; verified with dr smith 10:45:22 SHEATH 6Fr Prelude ([id number]) opened to sterile field. 10:45:29 [place] IVUS Catheter (87485A) opened to sterile field. 10:45:38 GUIDE 6FR EBU 3.0 catheter ([id number]) opened to sterile field. 10:45:42 Catheter removed. 10:45:47 Sheath upsized to a 6 Fr Short. 10:45:53 6 Fr ebu 3 guide catheter was inserted over the wire 10:47:23 CHOICE PT Extra Support 182cm wire ([id number]) opened to sterile field. 10:47:26 EXOSEAL 6Fr (EX600) opened to sterile field. 10:47:34 choioce pt wire advanced. 10:47:39 Wire advanced across lesion in LAD 10:47:54 IVUS catheter advanced over wire. 10:47:58 IVUS pass to LAD lesion performed. 10:48:33 Versed 1 mg I.V. was administered by Galo Carrillo RN; for sedation; 10:48:36 Fentanyl 50 mcg I.V. was administered by Galo Carrillo RN; for sedation; 10:48:38 IVUS catheter removed over wire. 10:51:08 Inflation Number: 1 A CAROLINA RX 3.0 x 15 stent ([id number]) was prepped and advanced across the Mid LAD. The stent was deployed at 13 SCOTT for 0:10 (min:sec). 10:51:36 Inflation number: 1 The stent balloon was then re-inflated across the Prox LAD to 21 SCOTT for 0:10 (min:sec). 10:51:48 multiple inflations made to 21 atms 10:51:53 Stent catheter was removed intact over wire. 10:51:54 Wire removed. 10:51:58 Guide catheter removed. 10:52:04 Sheath removed intact; hemostasis achieved with Exoseal to the Right Femoral artery. 10:52:05 Procedure ended.(Ethan Out) 10:52:43 Versed 1 mg I.V. was administered by Galo Carrillo RN; for sedation; 10::46 Fentanyl 50 mcg I.V. was administered by Galo Carrillo RN; for sedation; 10:53:03 Fluoroscopy time 03.60 minutes. 10:53:05 Flurop Dose total: 400 10:53:05 Fluoroscopy dose: 400 mGy 10:53:08 Contrast amount:Isovue 300 89ml. 10:54:25 Fentanyl 100 mcg I.V. was administered by Galo Carrillo RN; for back pain; 10:56:38 Insertion/operative site no bleeding no hematoma. 10:56:42 Post-op/insertion site Right Femoral artery dressed using a 4 x 4 and Tegaderm. 10:56:45 Post right femoral artery:stable, soft, clean and dry 10:56:46 Post Procedure Pulses reassessed and unchanged 10:56:49 Post-procedure physical assessment completed. ASA score P 3 - A patient with severe systemic disease as per Keith Smith MD. 10:56:55 Post procedure rhythm: unchanged. 10:56:58 Estimated blood loss: 10 ml 10:56:59 Post procedure instruction explained to patient.Patient verbalizes understanding. 10:57:00 Patient needs reinforcement of post procedure teaching. 10:57:18 Procedure type changed to Cath procedure, Diagnostic procedure, LHC, LHC w/Coronaries, FFR/IVUS, Intra-Coronary IVUS Initial, PCI procedure, Coronary Stent, Coronary Stent Initial 10:59:01 Stroke assessment perfomed by Galo Carrillo (RN) Post procedure due to Pt history. No change. 10:59:21 Procedure and supply charges have been captured, reviewed, submitted and are correct. 10:59:24 Procedure Complication : No complications 10:59:25 Vital chart was stopped 10:59:26 See physician's report for complete and final results. 10:59:27 Report given to Pre/Post Procedure Room. 10:59:29 Patient transfered to Pre/Post Procedure Room with Stretcher. 10:59:48 End room use (Document Last) Intervention Summary Intervention Notes Time ActionType Lesion and Equipment Used Action# Pressure Duration Attributes 10:51:08 Place stent Mid LAD CAROLINA RX 3.0 x 1 13 00:10 15 stent ([id number]) 10:51:36 Reinflate Prox LAD CAROLINA RX 3.0 x 1 21 00:10 stent 15 stent balloon ([id number]) Device Usage Item Name Manufacture Quantity Catalog Number Hospital Part Current M inimal Lot# / Charge Number Stock Stock Serial# Code ACIST Syringe Acist 1 [id number] [id number] 493667 418514 2 0 (22462) Medical Systems Inc Bag Decanter Microtek 1 2001S 534433 89851 061923 5 (2001S) Medical Inc. Medline Cath Cardinal 1 [id number] 036079 14900 728532 5 Pack Health ([id number]) ACIST Hand Acist 1 86499 725123 015216 228747 5 Control Medical (37833) Systems Inc ACIST Manifold Acist 1 20801 807874 408281 894966 5 (17348) Medical Systems Inc Tegaderm 4 x 4 3M 1 1626W 303136 540606 825008 5 (1626W) SHEATH 5FR Terumo 1 [id number] 547112 677885 684633 4 0 [place] (GCF344) DIAGNOSTIC [place] 1 486828 697453 847158 347814 3 0 WIRE .035 260cm J wire (223174) DIAGNOSTIC Cardinal 1 KP1897 671667 08651 658051 3 0 Multipack 5Fr Health catheter set (KE8104) PERCUTANEOUS Cook Medical 1 N35051 302452 340706 5 ENTRY 19GA needle MULTIPACK Cardinal 1 847007 5 Pigtail 5 Fr Health catheter MULTIPACK JL Cardinal 1 758611 5 4.0 5Fr Health catheter MULTIPACK 3DRC Cardinal 1 919304 5 5Fr catheter Health SHEATH 6Fr Merit 1 [id number] 640051 267956 972826 5 Prelude Medical ([id number]) [place] 1 94866B 954212 864754 025332 8 [place] IVUS Catheter (74809Q) GUIDE 6FR EBU Medtronic 1 [id number] 835422 77915 187304 0 3.0 catheter ([id number]) CHOICE PT Mil[place] 1 [id number] 304654 355896 798122 5 Extra Support Scientific 182cm wire ([id number]) CAROLINA RX 3.0 x Medtronic 1 [id number] 326180 4528819 330825 5 [id number] 15 stent ([id number]) EXOSEAL 6Fr Cardinal 1 EX600 095429 191037 898122 1 0 (EX600) Health Signature Audit [place] Time Signature Unsigned Intra-Procedure 01/22/2018 Grady Armenta 11:01:00 AM RT(R) Signatures Monitor : Grady Armenta RT Signature : Date : Time : [id number] [place] [address]
--- NOTE | ~2018-01-22 | OP ---
PATIENT NAME: ERIC WARD MEDICAL RECORD: [id number] :41 LOCATION:D[facility] ADMISSION DATE: SURGEON: LINDA VERONICA MD DATE OF OPERATION: 01/22/2018 PROCEDURES: 1. PTCA stent LAD. 2. Intravascular ultrasound. 3. Left heart catheterization. 4. Selective coronary angiography. 5. Left ventriculogram. INDICATION: Angina and coronary artery disease. PROCEDURE IN DETAIL: After informed consent was obtained and after detailed explanation of risks, benefits as well as alternative therapies, the patient elected to proceed with angiogram and angioplasty. The right femoral area was prepped and draped in normal sterile fashion. The right femoral artery was cannulated via modified Seldinger technique with placement of 6-[place]amb[place] sheath. All catheters exchanged through this sheath. FINDINGS: The left ventriculogram was performed in standard 30-degree HODGE view, reveals good cardiac wall motion throughout all segments. Overall ejection fraction estimated at 60%. SELECTIVE CORONARY ANGIOGRAPHY: 1. Left main showed no significant angiographic disease. 2. Left anterior descending has previously placed stents. Intravascular ultrasound confirms that there is greater than 70% in-stent restenosis in the mid vessel. 3. Left circumflex shows moderate irregularities, but no flow-limiting stenosis. 4. The right coronary artery has previously placed stents, these are widely patent with no significant restenosis. No disease elsewise throughout the RCA or its branches. PTCA STENT OF THE LAD: The stent used was a 3.0 x 15 mm [place]. Result was 0% residual stenosis. OVERALL IMPRESSION: Successful percutaneous transluminal coronary angioplasty stent of the left anterior descending going from 80% initial stenosis to 0% residual. TRANSINT:[id number] Voice Confirmation ID: [id number] DOCUMENT ID: [id number] LINDA VERONICA MD at 1056 CC: [id number] DICTATION DATE: 01/22/18 1056 PATIENT RELATIONS SPECIALIST: 01/22/18 1249 DEP CLI 01/22/[address] [address]
[~2018-01-22 08:21] MED LIST changes: +HYDROCODONE-APA1 TAB PO; +LISINOPRIL5 MG PO; +NITROQUICK0.4 MG SL
[2018-01-22 09:17] VITALS: BP 162/68; Ht 157.5 cm; Wt 68.2 kg
[2018-01-22 09:34] LABS: BASOPHILS 0.4 % (0-2); EOSINOPHILS 1.2 % (0-7); HEMATOCRIT 39.4 % (36.0-48.0); HEMOGLOBIN 12.8 g/dL (12-16); IMMATURE GRANULOCYTES 0.4 % (0-5); LYMPHOCYTES 22.5 % (15-50); MCH 28.6 pg (26.0-34.0); MCHC 32.5 g/dL (31.0-37.0); MCV 88.1 fL (80.0-100.0); MEAN PLATELET VOLUME 11.3 fL (7.4-10.4); MONOCYTES 12.1 % (2-11); NEUTROPHILS 63.4 % (40-80); PLATELET COUNT 291 10x3/uL (130-400); RBC 4.47 10x6/uL (4.00-5.40); RDW 14.3 % (11.5-14.5); WBC 7.6 10x3/uL (4.8-10.8)
[2018-01-22 09:54] LABS: ANION GAP 16.2 mmol/L (8-16); CALCIUM 9.3 mg/dL (8.5-10.1); CARBON DIOXIDE 23.5 mmol/L (21.0-32.0); POTASSIUM - SERUM 3.7 mmol/L (3.5-5.1)
== END | disposition home or self-care (01) ==
LOC: D.CATH 08:21
PROVIDERS: Internal Medicine Interventional Cardiology
DX: I25.119 Atherosclerotic heart disease of native coronary artery with unspecified angina pectoris (principal); Z01.812 Encounter for preprocedural laboratory examination
CPT/HCPCS: 92978; 93458; C9600

== ENCOUNTER 2018-02-14 23:30 | Emergency (ER) | payer MEDICARE, MEDICAID ==
[2018-01-22 09:17] VITALS: BMI 27.5
[~2018-02-14 23:30] MED LIST changes: -HYDROCODONE-APA1 TAB PO; -LISINOPRIL5 MG PO; -NITROQUICK0.4 MG SL
== END 2018-02-15 01:19 | disposition home or self-care (01) ==
LOC: D.ER 23:30
DX: S80.02XA Contusion of left knee, initial encounter (principal); S80.01XA Contusion of right knee, initial encounter; S70.02XA Contusion of left hip, initial encounter; S70.01XA Contusion of right hip, initial encounter; W19.XXXA Unspecified fall, initial encounter; Y93.89 Activity, other specified; Y92.019 Unspecified place in single-family (private) house as the place of occurrence of the external cause; I10 Essential (primary) hypertension; J44.9 Chronic obstructive pulmonary disease, unspecified; E11.9 Type 2 diabetes mellitus without complications

== ENCOUNTER 2018-03-05 10:55 | Inpatient (IN) | payer MEDICARE, MEDICAID ==
[~2018-03-05] VITALS: Ht 157.5 cm; Wt 68.0 kg
[2018-03-05 11:36] LABS: BASOPHILS 0.2 % (0-2); EOSINOPHILS 0.4 % (0-7); HEMATOCRIT 37.5 % (36.0-48.0); HEMOGLOBIN 11.8 g/dL (12-16); IMMATURE GRANULOCYTES 0.3 % (0-5); LYMPHOCYTES 10.8 % (15-50); MCH 27.9 pg (26.0-34.0); MCHC 31.5 g/dL (31.0-37.0); MCV 88.7 fL (80.0-100.0); MONOCYTES 6.6 % (2-11); NEUTROPHILS 81.7 % (40-80); PLATELET COUNT 269 10x3/uL (130-400); RBC 4.23 10x6/uL (4.00-5.40); RDW 13.7 % (11.5-14.5); WBC 12.4 10x3/uL (4.8-10.8)
[2018-03-05 12:07] LABS: ALBUMIN 3.2 g/dL (3.4-5.0); ANION GAP 11.5 mmol/L (8-16); BILIRUBIN - TOTAL 0.32 mg/dL (0.2-1.3); CALCIUM 8.8 mg/dL (8.5-10.1); CARBON DIOXIDE 27.4 mmol/L (21.0-32.0); CREATININE - SERUM 1.2 mg/dL (0.6-1.3); POTASSIUM - SERUM 4.9 mmol/L (3.5-5.1); PROTEIN - SERUM 7.4 g/dL (6.4-8.2)
[2018-03-05 12:54] LABS: APPEARANCE HAZY (CLEAR); BACTERIA MODERATE /hpf (NONE SEEN); BILIRUBIN NEGATIVE (NEGATIVE); COLOR YELLOW (YELLOW); GLUCOSE NEGATIVE (NEGATIVE); KETONE NEGATIVE (NEGATIVE); MUCUS >1+ /lpf (NONE SEEN); NITRITE NEGATIVE (NEGATIVE); PROTEIN NEGATIVE (NEGATIVE); RED CELLS - URINE 0-5 /hpf (0-5); UROBILINOGEN NORMAL (NORMAL)
[2018-03-05] MEDS ORDERED: HYDROCODONE-APA1 TAB PO (16:30)
[2018-03-05 16:33] VITALS: BP 132/61
[2018-03-05] MEDS ORDERED: NITROQUICK0.4 MG SL (17:31)
[2018-03-05 21:28] VITALS: BP 127/52
[2018-03-05 23:57] LABS: T4 THYROXIN - FREE 1.05 ng/dL (0.76-1.46); THYROID STIMULATING HORMONE 1.19 uIU/mL (0.36-3.74)
[2018-03-06 01:17] LABS: CKMB 0.2 U/L (0.0-3.6); CREATINE KINASE 40 UL (21-215)
[2018-03-06 01:29] LABS: TROPONIN-I < 0.017 ng/mL (0.000-0.060)
[2018-03-06 04:01] VITALS: BP 111/63
[2018-03-06 05:08] LABS: BASOPHILS 0.2 % (0-2); EOSINOPHILS 1.2 % (0-7); HEMATOCRIT 32.5 % (36.0-48.0); HEMOGLOBIN 10.3 g/dL (12-16); IMMATURE GRANULOCYTES 0.5 % (0-5); LYMPHOCYTES 25.8 % (15-50); MCH 27.8 pg (26.0-34.0); MCHC 31.7 g/dL (31.0-37.0); MCV 87.8 fL (80.0-100.0); MONOCYTES 12.7 % (2-11); NEUTROPHILS 59.6 % (40-80); PLATELET COUNT 218 10x3/uL (130-400); RDW 13.7 % (11.5-14.5)
[2018-03-06 05:10] LABS: WBC 8.1 10x3/uL (4.8-10.8)
[2018-03-06 05:37] LABS: ALBUMIN 2.8 g/dL (3.4-5.0); ALKALINE PHOSPHATASE 65 U/L (46-116); ALT (SGPT) 13 U/L (10-68); BILIRUBIN - TOTAL 0.21 mg/dL (0.2-1.3); CALC OSMOLALITY 279 mosm/kg (275-300); CALCIUM 8.4 mg/dL (8.5-10.1); CARBON DIOXIDE 24.6 mmol/L (21.0-32.0); CHLORIDE - SERUM 106 mmol/L (98-107); CREATINE KINASE 31 UL (21-215); GLUCOSE 95 mg/dL (74-106); PROTEIN - SERUM 6.8 g/dL (6.4-8.2); SODIUM 139 mmol/L (136-145); UREA NITROGEN 17 mg/dL (7-18)
[2018-03-06 05:40] LABS: CREATININE - SERUM 0.8 mg/dL (0.6-1.3); TROPONIN-I < 0.017 ng/mL (0.000-0.060); eGFR NON AFRICAN AMERICAN 74 mL/min (90-120)
[2018-03-06 08:31] VITALS: BP 155/76
[2018-03-06 09:57] VITALS: Ht 157.5 cm; Wt 68.0 kg
[2018-03-06 12:32] VITALS: BP 128/65
[2018-03-06 12:47] LABS: CREATINE KINASE 31 UL (21-215); TROPONIN-I < 0.017 ng/mL (0.000-0.060)
[2018-03-06 16:13] VITALS: BP 147/75
[2018-03-06 22:35] VITALS: BP 162/68
[2018-03-07 05:28] LABS: BASOPHILS 0.3 % (0-2); EOSINOPHILS 2.2 % (0-7); HEMOGLOBIN 10.3 g/dL (12-16); IMMATURE GRANULOCYTES 0.4 % (0-5); LYMPHOCYTES 27.2 % (15-50); MCH 27.6 pg (26.0-34.0); MCHC 31.2 g/dL (31.0-37.0); MCV 88.5 fL (80.0-100.0); MEAN PLATELET VOLUME 11.2 fL (7.4-10.4); MONOCYTES 9.9 % (2-11); PLATELET COUNT 225 10x3/uL (130-400); RBC 3.73 10x6/uL (4.00-5.40); RDW 13.4 % (11.5-14.5); WBC 7.7 10x3/uL (4.8-10.8)
[2018-03-07 05:57] LABS: ALBUMIN 2.9 g/dL (3.4-5.0); ANION GAP 12.1 mmol/L (8-16); BILIRUBIN - TOTAL 0.2 mg/dL (0.2-1.3); CALCIUM 8.5 mg/dL (8.5-10.1); CARBON DIOXIDE 26.6 mmol/L (21.0-32.0); CREATININE - SERUM 0.9 mg/dL (0.6-1.3); POTASSIUM - SERUM 3.7 mmol/L (3.5-5.1); PROTEIN - SERUM 6.8 g/dL (6.4-8.2)
[2018-03-07 07:10] VITALS: BP 158/76
[2018-03-07 08:02] VITALS: BP 160/76
[2018-03-07 12:14] VITALS: BP 182/83
[2018-03-07 15:42] VITALS: BP 161/75
[2018-03-07 20:43] VITALS: BP 172/79
[2018-03-08 00:10] VITALS: BP 156/67
[2018-03-08 05:12] VITALS: BP 146/68
[2018-03-08 06:06] LABS: BASOPHILS 0.3 % (0-2); EOSINOPHILS 3.1 % (0-7); HEMATOCRIT 31.8 % (36.0-48.0); HEMOGLOBIN 10.1 g/dL (12-16); IMMATURE GRANULOCYTES 0.4 % (0-5); LYMPHOCYTES 29.7 % (15-50); MCH 27.9 pg (26.0-34.0); MCHC 31.8 g/dL (31.0-37.0); MCV 87.8 fL (80.0-100.0); NEUTROPHILS 54.5 % (40-80); PLATELET COUNT 202 10x3/uL (130-400); RBC 3.62 10x6/uL (4.00-5.40); RDW 13.4 % (11.5-14.5); WBC 7.1 10x3/uL (4.8-10.8)
[2018-03-08 06:31] LABS: ALBUMIN 2.9 g/dL (3.4-5.0); BILIRUBIN - TOTAL 0.1 mg/dL (0.2-1.3); CALCIUM 8.6 mg/dL (8.5-10.1); CARBON DIOXIDE 27.7 mmol/L (21.0-32.0); POTASSIUM - SERUM 3.7 mmol/L (3.5-5.1); PROTEIN - SERUM 6.8 g/dL (6.4-8.2)
[2018-03-08 09:49] VITALS: BP 124/62
[2018-03-08 14:56] VITALS: BP 136/56
[2018-03-08 17:32] VITALS: BP 144/68
[2018-03-08 20:38] VITALS: BP 154/77
[2018-03-09 01:50] VITALS: BP 197/90
[2018-03-09 02:50] VITALS: BP 165/83
[2018-03-09 04:06] VITALS: BP 165/83
[2018-03-09 06:05] LABS: BASOPHILS 0.3 % (0-2); EOSINOPHILS 2.4 % (0-7); HEMATOCRIT 32.7 % (36.0-48.0); HEMOGLOBIN 10.3 g/dL (12-16); IMMATURE GRANULOCYTES 0.3 % (0-5); LYMPHOCYTES 22.3 % (15-50); MCH 27.5 pg (26.0-34.0); MCHC 31.5 g/dL (31.0-37.0); MCV 87.4 fL (80.0-100.0); MEAN PLATELET VOLUME 11.7 fL (7.4-10.4); MONOCYTES 10.4 % (2-11); NEUTROPHILS 64.3 % (40-80); PLATELET COUNT 212 10x3/uL (130-400); RBC 3.74 10x6/uL (4.00-5.40); RDW 13.3 % (11.5-14.5)
[2018-03-09 06:08] LABS: WBC 9.3 10x3/uL (4.8-10.8)
[2018-03-09 06:45] LABS: ALBUMIN 2.9 g/dL (3.4-5.0); ANION GAP 8.2 mmol/L (8-16); BILIRUBIN - TOTAL 0.2 mg/dL (0.2-1.3); CALCIUM 8.8 mg/dL (8.5-10.1); CARBON DIOXIDE 30.9 mmol/L (21.0-32.0); POTASSIUM - SERUM 4.1 mmol/L (3.5-5.1); PROTEIN - SERUM 6.9 g/dL (6.4-8.2)
[2018-03-09 09:02] VITALS: BP 159/68
[2018-03-09 13:15] VITALS: BP 144/69
[2018-03-09 17:08] VITALS: BP 115/64
[2018-03-10 06:01] VITALS: BP 168/80
[2018-03-10 07:11] LABS: ALBUMIN 2.8 g/dL (3.4-5.0); ANION GAP 8.6 mmol/L (8-16); BILIRUBIN - TOTAL 0.19 mg/dL (0.2-1.3); CALCIUM 8.6 mg/dL (8.5-10.1); CARBON DIOXIDE 32.5 mmol/L (21.0-32.0); CREATININE - SERUM 0.9 mg/dL (0.6-1.3); POTASSIUM - SERUM 4.1 mmol/L (3.5-5.1); PROTEIN - SERUM 6.8 g/dL (6.4-8.2)
[2018-03-10 07:26] LABS: BASOPHILS 0.4 % (0-2); EOSINOPHILS 2.6 % (0-7); HEMATOCRIT 32.5 % (36.0-48.0); HEMOGLOBIN 10.3 g/dL (12-16); IMMATURE GRANULOCYTES 0.3 % (0-5); LYMPHOCYTES 26.6 % (15-50); MCH 27.9 pg (26.0-34.0); MCHC 31.7 g/dL (31.0-37.0); MCV 88.1 fL (80.0-100.0); MEAN PLATELET VOLUME 11.7 fL (7.4-10.4); MONOCYTES 16.1 % (2-11); PLATELET COUNT 208 10x3/uL (130-400); RBC 3.69 10x6/uL (4.00-5.40); RDW 13.6 % (11.5-14.5)
[2018-03-10 07:43] LABS: WBC 6.8 10x3/uL (4.8-10.8)
[2018-03-10 08:24] VITALS: BP 134/66
[2018-03-10 12:02] VITALS: BP 139/72
[2018-03-10 16:29] VITALS: BP 108/53
[2018-03-10 21:54] VITALS: BP 152/75
[2018-03-11 02:37] VITALS: BP 148/77
[2018-03-11 05:01] VITALS: BP 145/69
[2018-03-11 05:59] LABS: BASOPHILS 0.6 % (0-2); EOSINOPHILS 2.5 % (0-7); HEMATOCRIT 31.5 % (36.0-48.0); IMMATURE GRANULOCYTES 0.4 % (0-5); MCH 27.9 pg (26.0-34.0); MCHC 31.7 g/dL (31.0-37.0); MCV 87.7 fL (80.0-100.0); MEAN PLATELET VOLUME 11.6 fL (7.4-10.4); MONOCYTES 16.5 % (2-11); PLATELET COUNT 197 10x3/uL (130-400); RBC 3.59 10x6/uL (4.00-5.40); RDW 13.6 % (11.5-14.5); WBC 7.2 10x3/uL (4.8-10.8)
[2018-03-11 06:17] LABS: ALBUMIN 2.7 g/dL (3.4-5.0); ANION GAP 10.6 mmol/L (8-16); BILIRUBIN - TOTAL 0.3 mg/dL (0.2-1.3); CALCIUM 8.5 mg/dL (8.5-10.1); CARBON DIOXIDE 28.6 mmol/L (21.0-32.0); POTASSIUM - SERUM 4.2 mmol/L (3.5-5.1); PROTEIN - SERUM 6.8 g/dL (6.4-8.2)
[2018-03-11 09:02] VITALS: BP 165/78
[2018-03-11 13:57] VITALS: BP 139/65
[2018-03-11 17:20] VITALS: BP 140/65
[2018-03-11 21:15] VITALS: BP 187/85
[2018-03-12 04:08] VITALS: BP 158/68
[2018-03-12 06:07] LABS: BASOPHILS 0.4 % (0-2); EOSINOPHILS 2.2 % (0-7); HEMATOCRIT 32.4 % (36.0-48.0); HEMOGLOBIN 10.2 g/dL (12-16); IMMATURE GRANULOCYTES 0.3 % (0-5); LYMPHOCYTES 23.6 % (15-50); MCH 27.5 pg (26.0-34.0); MCHC 31.5 g/dL (31.0-37.0); MCV 87.3 fL (80.0-100.0); MEAN PLATELET VOLUME 11.6 fL (7.4-10.4); MONOCYTES 16.2 % (2-11); NEUTROPHILS 57.3 % (40-80); PLATELET COUNT 216 10x3/uL (130-400); RBC 3.71 10x6/uL (4.00-5.40); RDW 13.6 % (11.5-14.5); WBC 7.9 10x3/uL (4.8-10.8)
[2018-03-12 06:26] LABS: ALBUMIN 2.8 g/dL (3.4-5.0); ANION GAP 11.6 mmol/L (8-16); BILIRUBIN - TOTAL 0.1 mg/dL (0.2-1.3); CALCIUM 8.6 mg/dL (8.5-10.1); CARBON DIOXIDE 27.7 mmol/L (21.0-32.0); CREATININE - SERUM 0.9 mg/dL (0.6-1.3); POTASSIUM - SERUM 4.3 mmol/L (3.5-5.1); PROTEIN - SERUM 6.9 g/dL (6.4-8.2)
[2018-03-12 09:30] VITALS: BP 182/90
[2018-03-12] MEDS ORDERED: LISINOPRIL5 MG PO (10:38)
[2018-03-12 13:03] VITALS: BP 138/63
== END 2018-03-12 16:38 | DRG 689 ==
LOC: D.ER 10:55 → D.MS 13:39 → D.EDHOLD 13:39 → D.MS 14:35
PROVIDERS: Emergency Medicine; Family Medicine; Internal Medicine Nephrology
DX: N10 Acute pyelonephritis (principal); G93.49 Other encephalopathy; I69.354 Hemiplegia and hemiparesis following cerebral infarction affecting left non-dominant side; I50.30 Unspecified diastolic (congestive) heart failure; R53.1 Weakness; J44.9 Chronic obstructive pulmonary disease, unspecified; E11.40 Type 2 diabetes mellitus with diabetic neuropathy, unspecified; F32.9 Major depressive disorder, single episode, unspecified; F41.9 Anxiety disorder, unspecified; F41.0 Panic disorder [episodic paroxysmal anxiety]; I11.0 Hypertensive heart disease with heart failure; N17.9 Acute kidney failure, unspecified; R29.6 Repeated falls; I08.3 Combined rheumatic disorders of mitral, aortic and tricuspid valves; D64.9 Anemia, unspecified; R55 Syncope and collapse; G72.9 Myopathy, unspecified; T43.025A Adverse effect of tetracyclic antidepressants, initial encounter; W19.XXXA Unspecified fall, initial encounter; Y92.239 Unspecified place in hospital as the place of occurrence of the external cause

== ENCOUNTER 2018-05-01 13:15 | Observation (INO) | payer MEDICARE, MEDICAID ==
[~2018-05-01] VITALS: Ht 157.5 cm; Wt 76.0 kg
--- NOTE | ~2018-05-01 | OP ---
PATIENT NAME: ERIC WARD MEDICAL RECORD: [id number] :41 LOCATION:[id number] ADMISSION DATE:05/01/18 SURGEON: MARTI HERNANDEZ MD DATE OF OPERATION: 05/03/2018 ADDENDUM The left common carotid was selectively engaged and then on down the right common carotid was selectively engaged. TRANSINT:[id number] Voice Confirmation ID: [id number] DOCUMENT ID: [id number] MARTI HERNANDEZ MD at 1505 CC: [id number] DICTATION DATE: 05/19/18 1511 VIDEO GAME TESTER: 05/19/18 1526 DIS IN 05/06/18 [address] [place] [address]
--- NOTE | ~2018-05-01 | OP ---
PATIENT NAME: ERIC WARD MEDICAL RECORD: [id number] :41 LOCATION:[id number] ADMISSION DATE:05/01/18 SURGEON: MARTI HERNANDEZ MD DATE OF OPERATION: 05/03/2018 ADDENDUM LEFT CAROTID: Left common carotid was selectively engaged. RIGHT CAROTID: Right common carotid was selectively engaged. TRANSINT:[id number] Voice Confirmation ID: [id number] DOCUMENT ID: [id number] MARTI HERNANDEZ MD at 0816 CC: [id number] DICTATION DATE: 05/05/18 1457 MAINSPRING FABRICATION SUPERVISOR: 05/05/18 1522 DIS IN 05/06/18 [address] [place] [address]
--- NOTE | ~2018-05-01 | HEMODYNAMI ---
PATIENT:ERIC WARD MEDICAL RECORD: [id number] : 42 LOCATION:[facility] D.2133 ADMISSION DATE: 05/01/18 Generatedon:05/03/201810:22 Patient name: ERIC WARD Patient #: [id number] SSN: : 1940 Date of study: 05/03/2018 Page: Of Hemodynamic Procedure Report Patient Data Patient Demographics Procedure consent was obtained First Name: ERIC Gender: Female Last Name: ED : 1940 [facility] Initial: S Age: 77 year(s) Patient #: [id number] Race: Additional ID: [id number] Contact details [address]: [address] [place] [address] State: [place] City: [place] Zip code: [address] Past Medical History History of disease Date Diagnosis Comments CAD COPD Hypertension Allergies Allergen Reaction Date Comments Reported Sulfa drugs 10/25/2014 Other allergy 10/25/2014 Darvocet Codeine 10/25/2014 Other allergy 10/25/2014 Artificial Sweeteners Sulfa drugs 03/17/2017 Other allergy 08/10/2017 Sulfa, Darvocet, Artificial sweeteners Other allergy 01/22/2018 Sulfa Other allergy 05/03/2018 SULFA, DARVACET Admission Admission Data Admission Date: 05/01/2018 Admission Time: 15:08 Room #: D.2133 Lab Results Lab Result Date: 05/03/2018 Lab Result Time: 0:00 Biochemistry Name Units Result Min Max BUN mg/dl 21 --(----)-* 7 18 Creatinine mg/dl 0.9 --(-*--)-- 0.6 1.3 CBC Name Units Result Min Max Hemoglobin g/dl 10.5 *-(----)-- 13.5 17.5 Procedure Procedure Types Cath Procedure Diagnostic Procedure LHC LHC w/Coronaries Sedation Charges Moderate Sedation up to 15 minutes Peripheral Cath Diagnostic Procedure Cath Peripheral Four Vessel Arteriogram Procedure Description Procedure Date Procedure Date: 05/03/2018 Procedure Start Time: 10:15 Procedure End Time: 10:20 Procedure Staff Name Function Willy Haile MD Performing Physician Jess Carlson RT Monitor Randolph Bermudez RT Scrub Jabier Mcgregor RN Nurse Reed Eugene RN Oliving Machine Operator Procedure Data Cath Procedure Fluoroscopy Diagnostic fluoroscopy Total fluoroscopy Time: 4.9 time: 4.9 min min Diagnostic fluoroscopy Total fluoroscopy dose: 361 dose: 361 mGy mGy Contrast Material Contrast Material Type Amount (ml) Isovue 300 88 Entry Location Entry Primary Successful Side Size Upsize Upsize Entry Closure Succes sful Closure Location (Fr) 1 (Fr) 2 (Fr) Remarks Device Remarks Femoral Right 5 Fr Exoseal artery Estimated blood loss: 5 ml Diagnostic catheters Device Type Used For End Catheter Placement MULTIPACK JL 4.0 5Fr Procedure catheter DIAGNOSTIC JL 3.5 5Fr Procedure catheter ([id number]) MULTIPACK 3DRC 5Fr Procedure catheter MULTIPACK Pigtail 5 Fr Procedure catheter Procedure Complications No complications Procedure Medications Medication Administration Route Dosage 0.9% NaCl I.V. 100 ml/hr Oxygen etCO2 Nasal cannula 2 l/min Heparin Flush Bag added to field 2 bags (1000units/500ml NS) Lidocaine 2% added to field 20 Versed I.V. 2 mg Fentanyl I.V. 100 mcg Versed I.V. 1 mg Hemodynamics Rest HGB: 10.5 (g/dl) Heart Rate: 55 (bpm) Pressure Samples Time Site Value (mmHg) Purpose Heart Use Rate(bpm) 10:16 LV 162/14,23 Snapshot 57 10:16 AO 145/67(99) Pullback 59 10:16 LV 159/17,21 Pullback 59 Gradients Valve Time Site 1 Site 2 Mean SEP/DFP Peak To Heart Use (mmHg) (sec/min) Peak Rate (mmHg) (bpm) Aortic 10:16 LV AO 12 19 14 59 159/17,21 145/67(99) Calculations Valve P-P Mean Valve Index Valve Source Name Gradient Area Flow (cm2) Aortic 14 12 14 12 Snapshots Pre Cath Intra NCS Post Cath Vital Signs Time Heart Resp SPO2 etCO2 NIBP (mmHg) Rhythm Pain Sedation Rate (ipm) (%) (mmHg) Status Level (bpm) 9:47:28 57 50 96 0 176/82(151) NSR 0 (11) 10(A) , No pain 9:52:21 53 16 97 29.4 164/78(132) NSR 0 (11) 10(A) , No pain 9:57:10 52 14 98 36.9 157/78(130) NSR 0 (11) 10(A) , No pain 10:02:33 51 15 97 37 142/72(120) NSR 0 (11) 10(A) , No pain 10:07:45 53 17 97 37.7 132/70(110) NSR 0 (11) 10(A) , No pain 10:12:25 57 19 97 40 135/69(115) NSR 0 (11) 10(A) , No pain 10:17:06 59 19 96 38.5 139/72(115) NSR 0 (11) 10(A) , No pain Medications Time Medication Route Dose Verified Delivered Reason Notes Eff ectiveness by by 9:51:09 0.9% NaCl I.V. 100 Jabier Jabier Per ml/hr Lorigan Lorigan physician RN RN 9:51:20 Oxygen etCO2 2 Jabier Jabier Per Nasal l/min Lorigan Lorigan physician cannula RN RN 9:51:31 Heparin Flush added 2 Jabier Jabier used for Bag to bags Lorigan Lorigan procedure (1000units/500ml field RN RN NS) 9:51:42 Lidocaine 2% added 20ml Jabier Jabier for local to vial Lorigan Lorigan anesthetic field RN RN 9:56:45 Versed I.V. 2 mg Jabier Jabier for Lorigan Lorigan sedation RN RN 9:56:53 Fentanyl I.V. 100 Jabier Jabier for mcg Lorigan Lorigan sedation RN RN 10:04:22 Versed I.V. 1 mg Jabier Jabier for Lorigan Lorigan sedation RN encoding machine operator Log Time Note 9:20:10 Reed Eugene RN sent for patient. Start room use. 9:34:17 Time tracking: Regular hours (M-F 7:00 - 5:00) 9:34:22 Plan of Care:Hemodynamics will remain stable., Cardiac rhythm will remain stable., Comfort level will be maintained., Respiratory function will remain adequate., Patient/ family verbilizes understanding of procedure., Procedure tolerated without complication., Recovers from procedure without complications.. 9:41:05 Patient received from PCU to CCL 1 Alert and oriented. Tansferred to table in Supine position. 9:41:06 Warm blankets applied, and marci hugger turned on for patient comfort. 9:41:07 Correct patient and procedure confirmed by team. 9:41:08 Signed procedure consent form obtained from patient. 9:41:09 ECG and BP/O2 sat monitors applied to patient. 9:45:43 Vital chart was started 9:51:09 0.9% NaCl 100 ml/hr I.V. was administered by Jabier Mcgregor RN; Per physician; 9:51:20 Oxygen 2 l/min etCO2 Nasal cannula was administered by Jabier Mcgregor RN; Per physician; 9:51:31 Heparin Flush Bag (1000units/500ml NS) 2 bags added to field was administered by Jabier Mcgregor RN; used for procedure; 9:51:42 Lidocaine 2% 20ml vial added to field was administered by Jabier Mcgregor RN; for local anesthetic; 9:54:05 Baseline sample Acquired. 9:54:09 Rhythm: sinus bradycardia 9:54:10 Full Disclosure recording started 9:54:19 H&P Date Dictated: 05/01/2018 Within 30 days and on chart.. 9:54:20 Pre-procedure instructions explained to patient. 9:54:20 Pre-op teaching completed and patient verbalized understanding. 9:54:24 Family unavailable. 9:54:25 Patient NPO since Midnight. 9:54:40 Patient allergic to Other allergySULFA, DARVACET 9:54:42 Is the patient allergic to Iodine/contrast media? No. 9:54:43 Is patient on blood thinner?Yes 9:54:45 ACC The patient was administered the following blood thiners within the last 24 hours: ACCPlavix 9:55:00 Patient diabetic? No. 9:55:04 Previous problem with sedation/anesthesia? No ? 9:55:05 Snore? Yes 9:55:06 Sleep apnea? No 9:55:07 Deviated septum? No 9:55:08 Opens mouth fully? Yes 9:55:09 Sticks out tongue? Yes 9:55:12 Airway obstruction? Yes COPD 9:55:18 Dentures? No ? 9:55:25 IV patent on arrival in right hand with 0.9% NaCl at [facility]. 9:55:56 Lab Result : Creatinine 0.9 mg/dl 9:55:56 Lab Result : BUN 21 mg/dl 9:55:56 Lab Result : Hemoglobin 10.5 g/dl 9:55:59 Lab results completed and on chart. 9:56:02 Right groin area was prepped with chlora-prep and draped in sterile fashion 9:56:03 Alarms reviewed by R. N. 9:56:03 Sharps counted by scrub and verified by R.N. 9:56:05 --------ALL STOP TIME OUT------ 9:56:05 Final Timeout: patient, procedure, and site verified with staff and physician. All members of the team are in agreement. 9:56:06 Right groin site verified by team. 9:56:11 Physical assessment completed. ASA score P 2 - A patient with mild systemic disease as per Willy Haile MD. 9:56:14 Sedation plan: IV Moderate Sedation Medication:Versed, Fentanyl 9:56:19 Use device set Femoral Dx 9:56:20 ACIST Syringe (51312) opened to sterile field. 9:56:21 Bag Decanter (2002S) opened to sterile field. 9:56:23 ACIST Hand Control (43948) opened to sterile field. 9:56:23 ACIST Manifold (32584) opened to sterile field. 9:56:24 Tegaderm 4 x 4 (1626W) opened to sterile field. 9:56:27 Medline Cath Pack ([id number]) opened to sterile field. 9:56:27 DIAGNOSTIC WIRE .035 260cm J wire (159652) opened to sterile field. 9:56:28 DIAGNOSTIC Multipack 5Fr catheter set ([id number]) opened to sterile field. 9:56:30 SHEATH Prelude 5Fr 0.035 (KTW-8S-51-035) opened to sterile field. 9:56:45 Versed 2 mg I.V. was administered by Jabier Mcgregor RN; for sedation; 9:56:53 Fentanyl 100 mcg I.V. was administered by Jabier Mcgregor RN; for sedation; 9:57:57 Procedure started. 9:59:38 Zero performed for pressure channel P1 9:59:45 Zero performed for pressure channel P1 10:03:34 Local anesthetic to right femoral artery with Lidocaine 2% by Willy Haile MD.INITIAL ACCESS ONLY 10:04:22 Versed 1 mg I.V. was administered by Jabier Mcgregor RN; for sedation; 10:05:30 A 5 Fr sheath was inserted into the Right Femoral artery 10:05:44 A MULTIPACK JL 4.0 5Fr catheter was advanced over the wire and used for Procedure. 10:07:20 Catheter removed. 10:07:37 A DIAGNOSTIC JL 3.5 5Fr catheter ([id number]) was advanced over the wire and used for Procedure. 10:08:07 LCA angiography performed. 10:08:50 Catheter removed. 10:08:56 A MULTIPACK 3DRC 5Fr catheter was advanced over the wire and used for Procedure. 10:09:52 RCA angiography performed. 10:10:09 Left carotid angiography performed. 10:12:56 Right carotid angiography performed. 10:13:08 Catheter removed. 10:13:14 A MULTIPACK Pigtail 5 Fr catheter was advanced over the wire and used for Procedure. 10:13:38 LV gram done using HODGE 10:13:49 Injector settings: Ml/sec: 10, Volume: 20, 10:16:05 LV hemodynamics recorded. 10:16:29 EF : 50 % 10:16:59 Catheter removed. 10:17:01 EXOSEAL 5Fr (EX500) opened to sterile field. 10:17:10 Sheath removed intact; hemostasis achieved with Exoseal to the Right Femoral artery. 10:17:15 Procedure ended.(Physican Out) 10:17:45 Fluoroscopy time 04.90 minutes. 10:17:49 Flurop Dose total: 361 10:17:49 Fluoroscopy dose: 361 mGy 10:17:52 Contrast amount:Isovue 300 88ml. 10:17:54 Sharps counted by scrub and verified by R.N. 10:17:58 Post-op/insertion site Right Femoral artery dressed using a 4 x 4 and Tegaderm. 10:18:02 Post right femoral artery:stable, soft, clean and dry 10:18:09 Post-procedure physical assessment completed. ASA score P 2 - A patient with mild systemic disease as per Willy Haile MD. 10:18:13 Post procedure rhythm: sinus bradycardia 10:18:16 Estimated blood loss: 5 ml 10:18:17 Post procedure instruction explained to patient.Patient verbalizes understanding. 10:18:18 Patient needs reinforcement of post procedure teaching. 10:18:46 Procedure type changed to Cath procedure, Diagnostic procedure, LHC, LHC w/Coronaries, Sedation Charges, Moderate Sedation up to 15 minutes, Peripheral Cath Diagnostic Procedure, Cath Peripheral, Four Vessel Arteriogram 10:19:18 Procedure and supply charges have been captured, reviewed, submitted and are correct. 10:19:21 Procedure Complication : No complications 10:19:25 Vital chart was stopped 10:19:27 See physician's report for complete and final results. 10:19:34 Report given to PCU. 10:19:37 Patient transfered to PCU with Bed. 10:20:13 Procedure ended. 10:20:13 Full Disclosure recording stopped 10:20:18 End room use (Document Last) Device Usage Item Name Manufacture Quantity Catalog Number Hospital Part Current M inimal Lot# / Charge Number Stock Stock Serial# Code ACIST Syringe Acist 1 00268 313359 594031 689830 2 0 (20493) Medical Systems ReadyDock Bag Decanter Microtek 1 2001S 297947 86488 595585 5 (2001S) Medical Inc. ACIST Hand Acist 1 54094 071142 813245 650927 5 Control (74640) Medical Systems Inc ACIST Manifold Acist 1 56611 692996 978580 384941 5 (67048) Medical Systems Inc Tegaderm 4 x 4 3M 1 1626W 532906 246142 665020 5 (1626W) Medline Cath Cardinal 1 [id number] 793259 21205 786811 5 Pack Health ([id number]) DIAGNOSTIC WIRE [place] 1 156327 407279 582372 250159 3 0 .035 260cm J wire (998514) DIAGNOSTIC Cardinal 1 [id number] 753330 18992 543088 3 0 Multipack 5Fr Health catheter set ([id number]) SHEATH Prelude Merit 1 FQB-1H-52-035 361869 201238 295940 5 5Fr 0.035 Medical (SFR-9B-46-035) MULTIPACK JL Cardinal 1 281111 5 4.0 5Fr Health catheter DIAGNOSTIC JL Cardinal 1 [id number] 859192 052851 749441 5 3.5 5Fr Health catheter (294620W) MULTIPACK 3DRC Cardinal 1 381530 5 5Fr catheter Health MULTIPACK Cardinal 1 571745 5 Pigtail 5 Fr Health catheter EXOSEAL 5Fr Cardinal 1 EX500 467413 990599 085574 1 0 (EX500) Health Signature Audit [place] Stage Time Signature Unsigned Intra-Procedure 05/03/2018 Jess Carlson 10:22:52 AM RT(R) Signatures Monitor : Jess Carlson Signature : RT Date : Time : [place] [address] [place] [address]
--- NOTE | ~2018-05-01 | CN ---
PATIENT NAME:ERIC WARD MEDICAL RECORD: [id number] : 42 LOCATION:D. D.2133 ADMIT DATE: 05/01/18 ACCOUNT: [id number] CONSULTING PHYSICIAN: MARTI HERNANDEZ MD REFERRING PHYSICIAN: ALVINA LORENZANA MD DATE OF CONSULTATION: 05/03/2018 HISTORY: A 77-year-old female with history of coronary disease, status post recent balloon to the LAD via Dr. Smith. She has a history of cerebrovascular disease, status post CVA in the past, admitted with chest pain and unilateral weakness involving the left upper and lower extremity with tingling and numbness. She initially thought she may have been overheated outside, not getting her fluid. Her BUN was found to be elevated. Symptoms have persisted however. ECG without acute change. We are asked to see her concerning her cardiovascular status. PAST MEDICAL HISTORY: Includes; 1. History of hypertension. 2. Hyperlipidemia. 3. Cerebrovascular disease as described above. 4. Hypothyroidism, on replacement. MEDICATIONS: Include Synthroid 75 mcg daily, Prozac 40 daily, Celexa 20 mg daily, aspirin 325 daily, Tribenzor 40/10/25 daily, lisinopril 5 daily, atorvastatin 20 daily, atenolol 25 daily, Imdur 60 b.i.d., and Plavix 75 daily. ALLERGIES: DARVOCET AND SULFA. SOCIAL HISTORY: Lives at home. Nonsmoker, nondrinker. She takes care of her ADLs. REVIEW OF SYSTEMS: The patient reports easy bruising but reports no swollen glands. The patient reports no fever, no night sweats, no significant weight gain, no significant weight loss. No significant exercise tolerance. The patient reports no dry eyes, no irritation, no vision change. Patient reports no difficulty hearing and no ear pain. Patient reports no frequent nose bleeds or nose and sinus problems. Patient reports on arm pain on exertion. No shortness of breath while lying down. No history of heart murmur. Patient reports no cough, no wheezing or coughing up blood. Patient reports no abdominal pain, no vomiting. Normal appetite. No diarrhea and not vomiting blood. No nausea and no constipation. Patient reports no incontinence. No difficulty urinating. No hematuria. No increased frequency. Patient reports no muscle aches. No weakness, no arthralgias, no back pain. No swelling of the extremities. Patient reports no abnormal mole, no jaundice, no rashes. Reports no loss of consciousness. No weakness and no numbness. No seizures, dizziness, or headaches. The patient reports no depression, no sleep disturbance, feeling safe in a relationship and no alcohol abuse. Patient reports on fatigue. Reports no runny nose or sinus pressure. No itching, no hives, and no frequent sneezing. PHYSICAL EXAMINATION: GENERAL: Pleasant female, in no acute distress, appears stated age. VITAL SIGNS: 110/54, pulse 58 and regular. HEENT: Normocephalic, atraumatic. NECK: No bruits noted. CONSULT REPORT [id number] ERIC WARD HEART: Regular. LUNGS: Carlson clear. EXTREMITIES: Pulses 2+. There is no edema. ECG without acute change. IMPRESSION: Recurrent angina, status post intervention in December. High suspicious TIA-type symptomatology with unilateral weakness and numbness on left side, still with residual tingling. PLAN: Plan for cath, 4 vessel, in the near future. Further recommendations based on above. TRANSINT:[id number] Voice Confirmation ID: [id number] DOCUMENT ID: [id number] MARTI HERNANDEZ MD at 0816 CC: [id number] DICTATION DATE: 05/03/18818 BUS DISPATCHER INTERSTATE: 05/03/18 1211 DIS IN 05/06/18 [facility] [address] [place] [address]
--- NOTE | ~2018-05-01 | OP ---
PATIENT NAME: ERIC WARD MEDICAL RECORD: [id number] :42 LOCATION:D.M2 D.2133 ADMISSION DATE:05/01/18 SURGEON: MARTI HERNANDEZ MD DATE OF OPERATION: 05/03/2018 PROCEDURE: Left heart catheterization, selective coronary angiography, right femoral artery approach as well as 4-vessel arteriography. CATHETERS: A 5-Macedonian sheath, 5/4 left and right Denny, 5/4 pig. The procedure was well tolerated. The patient was returned to wei. Sheath removed. ExoSeal device placed. FINDINGS: Left ventriculography in 30-degree HODGE view: Normal wall motion, normal systolic function. CORONARY ANATOMY: LEFT MAIN: Left main free of disease. LAD: Widely patent and area of previous stenting shows no evidence of restenosis. CIRCUMFLEX: Free of disease. RIGHT CORONARY ARTERY: Area of previous stenting. There is no restenosis. No evidence of progression of [place] disease. LEFT CAROTID SYSTEM: Left common carotid shows some minor wall disease, no stenosis greater than 20%. Left internal carotid is smooth-walled vessel, free of disease. Left external carotid, some wall disease, no stenosis greater than 20%. RIGHT: Right common carotid, smooth-walled vessel, free of disease. Right internal carotid, small vessel, free of disease. Right external carotid shows some wall disease, no stenosis greater than 20%. TRANSINT:[id number] Voice Confirmation ID: [id number] DOCUMENT ID: [id number] MARTI HERNANDEZ MD at 0816 CC: [id number] DICTATION DATE: 05/03/18 1024 NEWS CLERK: 05/03/18 1304 DIS IN 05/06/18 [place] [id number] [place] [id number]
[~2018-05-01 13:15] MED LIST changes: +HYDROCODONE-APA1 TAB PO; +LISINOPRIL5 MG PO; +NITROQUICK0.4 MG SL
[2018-05-01 13:22] VITALS: BP 147/60
[2018-05-01 13:29] VITALS: BP 158/66
[2018-05-01 13:35] VITALS: BP 151/66
[2018-05-01 14:12] LABS: ALBUMIN 3.6 g/dL (3.4-5.0); ANION GAP 13.9 mmol/L (8-16); BILIRUBIN - TOTAL 0.5 mg/dL (0.2-1.3); CALCIUM 8.9 mg/dL (8.5-10.1); CARBON DIOXIDE 23.3 mmol/L (21.0-32.0); CREATININE - SERUM 1.1 mg/dL (0.6-1.3); POTASSIUM - SERUM 3.2 mmol/L (3.5-5.1); PROTEIN - SERUM 7.8 g/dL (6.4-8.2)
[2018-05-01 14:13] LABS: APTT 23.8 SECONDS (22.8-39.4); BASOPHILS 0.2 % (0-2); EOSINOPHILS 0.5 % (0-7); HEMATOCRIT 37.2 % (36.0-48.0); HEMOGLOBIN 11.9 g/dL (12-16); IMMATURE GRANULOCYTES 0.7 % (0-5); INR 1.04 (0.85-1.17); LYMPHOCYTES 9.4 % (15-50); MCH 27.7 pg (26.0-34.0); MCV 86.5 fL (80.0-100.0); MEAN PLATELET VOLUME 11.6 fL (7.4-10.4); MONOCYTES 9.2 % (2-11); PLATELET COUNT 259 10x3/uL (130-400); PROTIME 13.2 SECONDS (11.6-15.0); RDW 14.6 % (11.5-14.5); WBC 14.1 10x3/uL (4.8-10.8)
[2018-05-01 14:30] VITALS: BP 186/79
[2018-05-01 15:44] VITALS: BP 177/77
[2018-05-01] MEDS ORDERED: PROZAC40 MG PO (16:37)
[2018-05-01 21:43] VITALS: BP 151/59
[2018-05-02 03:03] VITALS: BP 133/57
[2018-05-02 06:01] VITALS: BP 172/68
[2018-05-02 08:13] VITALS: BP 171/61
[2018-05-02 11:53] VITALS: BP 173/61
[2018-05-02 12:20] LABS: BASOPHILS 0.4 % (0-2); EOSINOPHILS 0.4 % (0-7); HEMATOCRIT 34.4 % (36.0-48.0); HEMOGLOBIN 11.1 g/dL (12-16); IMMATURE GRANULOCYTES 0.3 % (0-5); LYMPHOCYTES 29.3 % (15-50); MCH 27.7 pg (26.0-34.0); MCHC 32.3 g/dL (31.0-37.0); MCV 85.8 fL (80.0-100.0); MEAN PLATELET VOLUME 11.5 fL (7.4-10.4); MONOCYTES 10.9 % (2-11); NEUTROPHILS 58.7 % (40-80); PLATELET COUNT 215 10x3/uL (130-400); RBC 4.01 10x6/uL (4.00-5.40); RDW 14.7 % (11.5-14.5)
[2018-05-02 12:23] LABS: WBC 7.1 10x3/uL (4.8-10.8)
[2018-05-02 12:37] LABS: ANION GAP 11.4 mmol/L (8-16); CALCIUM 8.6 mg/dL (8.5-10.1); CARBON DIOXIDE 26.1 mmol/L (21.0-32.0); POTASSIUM - SERUM 3.5 mmol/L (3.5-5.1)
[2018-05-02 15:06] LABS: CKMB 0.6 U/L (0.0-3.6); CREATINE KINASE 42 UL (21-215)
[2018-05-02 15:12] LABS: TROPONIN-I < 0.017 ng/mL (0.000-0.060)
[2018-05-02 15:37] VITALS: BP 172/75
[2018-05-02 19:39] LABS: CKMB 0.6 U/L (0.0-3.6); CREATINE KINASE 40 UL (21-215)
[2018-05-02 19:40] LABS: TROPONIN-I < 0.017 ng/mL (0.000-0.060)
[2018-05-02 20:30] VITALS: BP 139/63
[2018-05-03 00:30] VITALS: BP 107/43
[2018-05-03 01:41] LABS: CKMB 0.3 U/L (0.0-3.6); CREATINE KINASE 36 UL (21-215); TROPONIN-I < 0.017 ng/mL (0.000-0.060)
[2018-05-03 04:30] VITALS: BP 110/54
[2018-05-03 05:33] LABS: BASOPHILS 0.5 % (0-2); EOSINOPHILS 1.6 % (0-7); HEMATOCRIT 33.6 % (36.0-48.0); HEMOGLOBIN 10.5 g/dL (12-16); IMMATURE GRANULOCYTES 0.4 % (0-5); LYMPHOCYTES 27.9 % (15-50); MCH 27.3 pg (26.0-34.0); MCHC 31.3 g/dL (31.0-37.0); MCV 87.3 fL (80.0-100.0); MEAN PLATELET VOLUME 11.7 fL (7.4-10.4); MONOCYTES 10.9 % (2-11); NEUTROPHILS 58.7 % (40-80); PLATELET COUNT 224 10x3/uL (130-400); RBC 3.85 10x6/uL (4.00-5.40); RDW 14.9 % (11.5-14.5)
[2018-05-03 05:54] LABS: APPEARANCE HAZY (CLEAR); COLOR YELLOW (YELLOW); NITRITE NEGATIVE (NEGATIVE)
[2018-05-03 05:55] LABS: BILIRUBIN NEGATIVE (NEGATIVE); GLUCOSE NEGATIVE (NEGATIVE); KETONE SMALL mg/dL (NEGATIVE); PROTEIN NEGATIVE (NEGATIVE); UROBILINOGEN NORMAL (NORMAL)
[2018-05-03 05:57] LABS: BACTERIA MODERATE /hpf (NONE SEEN); EPITHELIAL CELLS 0-5 /hpf (0-5); GRANULAR CAST OCC /lpf (NONE SEEN); HYALINE CAST OCC /lpf (NONE SEEN); RED CELLS - URINE OCC /hpf (0-5); WHITE CELLS - URINE 25-50 /hpf (0-5)
[2018-05-03 05:59] LABS: CALCIUM 8.7 mg/dL (8.5-10.1); CARBON DIOXIDE 28.5 mmol/L (21.0-32.0); CHOL - HDL RATIO 5.8 ratio (2.3-4.1); CREATININE - SERUM 0.9 mg/dL (0.6-1.3); LDL-HDL RATIO 3.8 ratio (1.5-3.5); POTASSIUM - SERUM 3.5 mmol/L (3.5-5.1)
[2018-05-03 09:13] VITALS: BP 171/92
[2018-05-03 14:16] VITALS: BMI 27.4
[2018-05-04 00:02] VITALS: BP 117/49
[2018-05-04 01:58] VITALS: Ht 157.5 cm; Wt 76.0 kg
[2018-05-04 05:58] LABS: BASOPHILS 0.3 % (0-2); EOSINOPHILS 3.4 % (0-7); HEMATOCRIT 30.5 % (36.0-48.0); HEMOGLOBIN 9.5 g/dL (12-16); IMMATURE GRANULOCYTES 0.6 % (0-5); LYMPHOCYTES 28.6 % (15-50); MCH 27.6 pg (26.0-34.0); MCHC 31.1 g/dL (31.0-37.0); MCV 88.7 fL (80.0-100.0); MEAN PLATELET VOLUME 11.7 fL (7.4-10.4); MONOCYTES 12.4 % (2-11); NEUTROPHILS 54.7 % (40-80); RBC 3.44 10x6/uL (4.00-5.40); RDW 15.2 % (11.5-14.5); WBC 6.7 10x3/uL (4.8-10.8)
[2018-05-04 05:59] LABS: PLATELET COUNT 175 10x3/uL (130-400)
[2018-05-04 06:07] VITALS: BP 144/62
[2018-05-04 06:16] LABS: ANION GAP 6.6 mmol/L (8-16); CALCIUM 7.9 mg/dL (8.5-10.1); CARBON DIOXIDE 29.3 mmol/L (21.0-32.0); POTASSIUM - SERUM 3.9 mmol/L (3.5-5.1)
[2018-05-04 11:23] VITALS: BP 190/72
[2018-05-04 15:09] VITALS: BP 148/70
[2018-05-04 20:52] VITALS: BP 169/87
[2018-05-05 01:42] VITALS: BP 130/64
[2018-05-05 05:46] LABS: BASOPHILS 0.3 % (0-2); HEMATOCRIT 29.4 % (36.0-48.0); HEMOGLOBIN 9.1 g/dL (12-16); IMMATURE GRANULOCYTES 0.6 % (0-5); LYMPHOCYTES 29.6 % (15-50); MCH 27.3 pg (26.0-34.0); MCV 88.3 fL (80.0-100.0); MEAN PLATELET VOLUME 11.8 fL (7.4-10.4); MONOCYTES 12.7 % (2-11); NEUTROPHILS 53.8 % (40-80); PLATELET COUNT 176 10x3/uL (130-400); RBC 3.33 10x6/uL (4.00-5.40); RDW 15.1 % (11.5-14.5); WBC 7.1 10x3/uL (4.8-10.8)
[2018-05-05 06:10] LABS: ANION GAP 9.9 mmol/L (8-16); CARBON DIOXIDE 29.2 mmol/L (21.0-32.0); CREATININE - SERUM 0.9 mg/dL (0.6-1.3); POTASSIUM - SERUM 4.1 mmol/L (3.5-5.1)
[2018-05-05 06:13] VITALS: BP 149/60
[2018-05-05 08:17] VITALS: BP 145/79
[2018-05-05 10:58] VITALS: BP 139/68
[2018-05-05 16:12] VITALS: BP 141/62
[2018-05-05 20:25] VITALS: BP 130/78
[2018-05-06 01:16] VITALS: BP 163/73
[2018-05-06 04:30] VITALS: BP 171/81
[2018-05-06 06:33] LABS: BASOPHILS 0.2 % (0-2); EOSINOPHILS 1.9 % (0-7); HEMATOCRIT 31.3 % (36.0-48.0); HEMOGLOBIN 9.8 g/dL (12-16); IMMATURE GRANULOCYTES 0.4 % (0-5); LYMPHOCYTES 14.5 % (15-50); MCH 27.5 pg (26.0-34.0); MCHC 31.3 g/dL (31.0-37.0); MCV 87.9 fL (80.0-100.0); MEAN PLATELET VOLUME 11.8 fL (7.4-10.4); MONOCYTES 10.6 % (2-11); NEUTROPHILS 72.4 % (40-80); PLATELET COUNT 204 10x3/uL (130-400); RBC 3.56 10x6/uL (4.00-5.40); RDW 14.8 % (11.5-14.5)
[2018-05-06 06:35] LABS: WBC 11.1 10x3/uL (4.8-10.8)
[2018-05-06 06:36] LABS: ANION GAP 9.1 mmol/L (8-16); CALCIUM 8.3 mg/dL (8.5-10.1); CREATININE - SERUM 0.9 mg/dL (0.6-1.3); POTASSIUM - SERUM 4.1 mmol/L (3.5-5.1)
[2018-05-06 08:01] VITALS: BP 164/73
[2018-05-06 11:21] VITALS: BP 149/79
[2018-05-06 15:33] VITALS: BP 136/71
== END 2018-05-06 17:56 | disposition home health service (06) ==
LOC: D.ER 13:15 → D.M2 15:08 → D.EDHOLD 15:08 → D.M2 16:08 → OBSVTIME 05-06 17:55 → D.M2 05-06 17:56
PROVIDERS: Emergency Medicine; Internal Medicine Nephrology
DX: G45.9 Transient cerebral ischemic attack, unspecified (principal); G81.94 Hemiplegia, unspecified affecting left nondominant side; D50.9 Iron deficiency anemia, unspecified; J44.9 Chronic obstructive pulmonary disease, unspecified; I25.10 Atherosclerotic heart disease of native coronary artery without angina pectoris; Z95.5 Presence of coronary angioplasty implant and graft; I10 Essential (primary) hypertension; E78.5 Hyperlipidemia, unspecified; E03.9 Hypothyroidism, unspecified; F41.9 Anxiety disorder, unspecified; F32.9 Major depressive disorder, single episode, unspecified; E11.9 Type 2 diabetes mellitus without complications; R07.9 Chest pain, unspecified

== ENCOUNTER → 2018-12-02 10:46 | Outpatient (CLI) | payer MEDICARE, MEDICAID ==
[~2018-12-02 10:46] MED LIST changes: +PROZAC40 MG PO
--- NOTE | 2018-12-07 10:45 | ST ---
PATIENT:ERIC WARD MEDICAL RECORD: [id number] SEX: F LOCATION:[facility] ORDER #: ADMISSION DATE: 12/02/18 AGE OF PATIENT: 78 REFERRING PHYSICIAN: INTERPRETING PHYSICIAN: LINDA VERONICA MD DATE OF SERVICE: 12/02/2018 Nuclear Stress Test INDICATION: 1. Angina. 2. Coronary artery disease. 3. Shortness of breath. 4. Hypertension. She was exercised on standard Lexiscan protocol with 33 mCi of sestamibi injected at peak stress, 10 mCi were used previously for rest images. FINDINGS: Gated SPECT reveals preserved ejection fraction at 59% with decreased thickening and brightening throughout the apical segments. SPECT imaging Cardiolite was used as myocardial perfusion agent. There is a fixed perfusion defect apically, however, there is reversibility inferiorly. This includes basal, mid apical inferior segments as well as extending into the fixed perfusion defect in the apex. OVERALL IMPRESSION: This is an abnormal nuclear stress test, fixed perfusion defect apically, reversible ischemia inferiorly suggestive of hemodynamically significant coronary artery disease. We will proceed with coronary angiography as followup study. TRANSINT:[id number] Voice Confirmation ID: [id number] DOCUMENT ID: [id number] LINDA VERONICA MD at 1045 CC: [id number] DICTATION DATE: 12/03/18 1022 TYPE BAR AND SEGMENT ASSEMBLER: 12/04/18 0026 DEP CLI 12/02/[address] [address]
== END | disposition home or self-care (01) ==
LOC: D.HCCARDIO 10:30
DX: I25.10 Atherosclerotic heart disease of native coronary artery without angina pectoris (principal)

== ENCOUNTER 2019-08-17 11:34 | Observation (INO) | payer MEDICARE, MEDICAID ==
[2019-08-17] VITALS (10 sets, daily range): BP systolic 127–186; BP diastolic 68–108; BMI 27.5
[~2019-08-17] VITALS: Ht 157.5 cm; Wt 68.0 kg
[2019-08-17] MEDS ORDERED: WELLBUTRIN XL150 M1 PO (11:39)
--- NOTE | 2019-08-17 12:13 | NUR ---
TO CT AND XRAY WITH BOAT CREW DECK HAND
--- NOTE | 2019-08-17 12:37 | NUR ---
PT BACK FROM CT AT THIS TIME.
[2019-08-17 13:23] LABS: CALC OSMOLALITY 274 mosm/kg (275-300); CARBON DIOXIDE 22.8 mmol/L (21.0-32.0); CHLORIDE - SERUM 104 mmol/L (98-107); CREATININE - SERUM 0.8 mg/dL (0.6-1.3); GLUCOSE 108 mg/dL (74-106); POTASSIUM - SERUM 3.9 mmol/L (3.5-5.1); SODIUM 137 mmol/L (136-145); UREA NITROGEN 12 mg/dL (7-18); eGFR NON AFRICAN AMERICAN 73 mL/min (90-120)
[2019-08-17 13:28] LABS: BASOPHILS 0.4 % (0-2); EOSINOPHILS 1.4 % (0-7); HEMATOCRIT 39.8 % (36.0-48.0); HEMOGLOBIN 12.9 g/dL (12-16); IMMATURE GRANULOCYTES 0.5 % (0-5); LYMPHOCYTES 21.6 % (15-50); MCHC 32.4 g/dL (31.0-37.0); MCV 89.4 fL (80.0-100.0); MONOCYTES 11.4 % (2-11); NEUTROPHILS 64.7 % (40-80); RBC 4.45 10x6/uL (4.00-5.40); WBC 8.4 10x3/uL (4.8-10.8)
--- NOTE | 2019-08-17 13:31 | NUR ---
ASSITED PT UP TO BSC, REQUIRES MAX ASSIST. URINE SPEC OBTAINED, LABELED AT BS AND SENT TO LAB
[2019-08-17 13:37] LABS: ALBUMIN 3.3 g/dL (3.4-5.0); ALKALINE PHOSPHATASE 120 U/L (46-116); ALT (SGPT) 17 U/L (10-68); BILIRUBIN - TOTAL 0.58 mg/dL (0.2-1.3); CKMB 0.4 U/L (0.0-3.6); CREATINE KINASE 31 UL (21-215); PROTEIN - SERUM 8.1 g/dL (6.4-8.2); TROPONIN-I < 0.017 ng/mL (0.000-0.060)
[2019-08-17 13:43] LABS: PLATELET COUNT 314 10x3/uL (130-400)
--- NOTE | 2019-08-17 15:28 | NUR ---
REPORT CALLED TO KAILEE FRANK
[2019-08-17 15:30] LABS: APPEARANCE HAZY (CLEAR); BACTERIA FEW /hpf (NEGATIVE); BILIRUBIN NEGATIVE (NEGATIVE); COLOR YELLOW (YELLOW); EPITHELIAL CELLS 0-5 /hpf (0-5); GLUCOSE NEGATIVE (NEGATIVE); KETONE NEGATIVE (NEGATIVE); NITRITE NEGATIVE (NEGATIVE); PROTEIN TRACE mg/dL (NEGATIVE); RED CELLS - URINE 0-5 /hpf (0-5); SPECIFIC GRAVITY 1.015 (1.005-1.020); UROBILINOGEN NORMAL (NORMAL); WHITE CELLS - URINE 0-5 /hpf (NEGATIVE)
--- NOTE | 2019-08-17 20:00 | NUR ---
ASSESSMENT PER FLOWSHEET. SALINE LLOCK PATENT LEFT AC SITE CLEAR. EDWARD MAT ON SR UP X2 CAQLL LIGHT WITHIN REACH YELLOW SAFETY MEASURES IN USE. O2 ON 2L/M PER NC. HOB UP 30 DEGREES. TELM. SHOWS SR WITH HR 69.
--- NOTE | 2019-08-17 21:15 | NUR ---
FDGL=643. NO COVERAGE NEEDED.
--- NOTE | 2019-08-17 23:30 | NUR ---
C/O PAIN IN LEFT RIB AREA FX SITE. RATES PAIN LEVEL #10 NORCO 10 PO TAB ONE AND MOTRIN TAB ONE PO GIVEN FOR PAIN CONTROL. PLACED ON BEDPAN VOIDS WELL. CLEANED AND REPOSITIONED FOR COMFORT.
--- NOTE | 2019-08-18 00:01 | NUR ---
RESTING QUIETLY DENIES NEEDS.
[2019-08-18 01:16] VITALS: BP 170/75
[2019-08-18 04:54] VITALS: BP 156/68
[2019-08-18 06:11] LABS: BASOPHILS 0.5 % (0-2); EOSINOPHILS 3.9 % (0-7); HEMOGLOBIN 11.6 g/dL (12-16); IMMATURE GRANULOCYTES 0.2 % (0-5); LYMPHOCYTES 25.4 % (15-50); MCH 28.6 pg (26.0-34.0); MCHC 31.4 g/dL (31.0-37.0); MCV 91.1 fL (80.0-100.0); MEAN PLATELET VOLUME 11.2 fL (7.4-10.4); MONOCYTES 13.4 % (2-11); NEUTROPHILS 56.6 % (40-80); PLATELET COUNT 285 10x3/uL (130-400); RBC 4.06 10x6/uL (4.00-5.40); RDW 14.1 % (11.5-14.5); WBC 8.2 10x3/uL (4.8-10.8)
[2019-08-18 07:00] LABS: ANION GAP 14.3 mmol/L (8-16); CALCIUM 8.7 mg/dL (8.5-10.1); CARBON DIOXIDE 22.8 mmol/L (21.0-32.0); POTASSIUM - SERUM 4.1 mmol/L (3.5-5.1)
--- NOTE | 2019-08-18 07:14 | NUR ---
PT RESTING IN BED WITH EYES OPEN WATCHING TV, ALERT AND ORIENTED. IV LOCATED TO LEFT AC, CURRENTLY SL. CURRENTLY RCVING 2L VIA NC. REFUSED SCDS. NO S/S OF DISTRESS, DENIES NEEDS AT THIS TIME, WILL CONT TO MONITOR.
[2019-08-18 08:48] VITALS: BP 173/76
--- NOTE | 2019-08-18 12:19 | MORECARE ---
CASE MANAGEMENT DISCHARGE SUMMARY PATIENT: ERIC WARD UNIT: [id number] ADM DATE: 08/17/19 AGE: 79 : 41 SEX: F ROOM/BED: D.2225 AUTHOR: THOMAS MACIAS PHYSICIAN: REFERRING PHYSICIAN: ALVINA LORENZANA MD DATE OF SERVICE: 08/18/19 Discharge Plan Patient Name: ERIC WARD [facility] [facility] 1940 Planned Disposition: Home with Home Health Anticipated Discharge Date: 08/18/19 Discharge Date: Expected LOS: 1 Initial Reviewer: [email or web address] Initial Review Date: 08/18/2019 Generated: 08/18/19 1:18 pm External Providers External Provider: [facility] Next Contact Date: Service Request Date: Service Type: Resolution: Reviewer: Comments: Coverage Notice Reviewer: [email or web address] Dejuan Hagan Notice Issued Date-Time: 08/17/2019 16:08 Notice Type: Medicare Outpatient Observation Notice Notice Delivered To: Patient Relationship to Patient: Self Plaster Mechanic Name: Delivery Method: HAND - Hand Delivered Sherin Days: Prior Verbal Notification: Recipient Understood Notice: Yes Recipient Signature: Yes Med Rec Note Co-signed by Attending: Coverage Notice Comment: REBOLLEDO delivered to and signed by patient. Copy to chart. Patient Name: ERIC WARD Page [phone] at 1219 All edits/amendments must be made on the electronic document DICTATION DATE: 08/18/191217 MERCURY WASHER: DM 08/18/191217 RPT#: [id number] DC DATE: STATUS: ADM IN [facility] [address] [place] [address] END OF REPORT
--- NOTE | 2019-08-18 12:26 | MORECARE ---
CASE MANAGEMENT DISCHARGE SUMMARY PATIENT: ERIC WARD UNIT: [id number] ADM DATE: 08/17/19 AGE: 79 : 41 SEX: F ROOM/BED: D.2225 AUTHOR: COLLEENDOC PHYSICIAN: REFERRING PHYSICIAN: ALVINA LORENZANA MD DATE OF SERVICE: 08/18/19 Discharge Plan Patient Name: ERIC WARD Facility: [facility]:[place] : 1940 Planned Disposition: Home with Home Health Anticipated Discharge Date: 08/18/19 Discharge Date: Expected LOS: 1 Initial Reviewer: [email or web address] Initial Review Date: 08/18/2019 Generated: 08/18/19 1:26 pm Comments DCP- Discharge Planning Updated by [email or web address]: Shaunna Ness on 08/18/19 11:[address] Patient Name: ERIC WARD Admission Status: ER Accout number: [id number] Admission Date: 08-17-2019 : 1940 Admission Diagnosis: Attending: ALVINA LORENZANA Current LOS: 1 Anticipated DC Date: 08-18-2019 Planned Disposition: Home with Home Health Primary Insurance: [facility] MEDICARE SOLUTIONS Discharge Planning Comments: CM met with patient to complete initial dc planning assessment. CM educated patient on the CM role and verbal consent given by patient to complete assessment. Patient lives at home with her son. At discharge patient plans to return and feels this is a safe discharge. CM discussed availability of home health, rehab services, and medical equipment. Patient states she has [employer] and would like it resumed. I called and spoke to intake there and they state she was discharged on , but will see her again with order. I faxed order and clinical to [facility]. She states she does not have a ride home today, I informed her that I could call [employer] or a taxi. She states she does not ride the [employer] but, states "I can never get ahold of them." I gave her the number for [employer]. She states she has [place] choices and also has a window caser at [facility] (Anne). I called to speak with Anne and she is out today, I left a message concerning patient because she states Anne is setting up meals and wheels for her and she hasn't heard anything. CM will continue to follow and will assist as needed with dc plans/needs. Van Owner Operator: Shaunna Ness DCPIA - Discharge Planning Initial Assessment Updated by [email or web address]: Shaunna Ness on 08/18/19 12:21 pm * Is the patient Alert and Oriented? Yes * How many steps to enter\\exit or inside your home? 4/0 * PCP Dr. Virk * Pharmacy [facility] * Preadmission Environment Home with Family * ADLs Partial Dependent * Partial ADLs (Assistance needed) Ambulation Bathing Dressing Medication Management Transfers * Equipment Other Oxygen Walker * Other Equipment Shower bench * List name and contact numbers for known caregivers / representatives who currently or will assist patient after discharge: Fer Ward [facility] - [phone] * Verbal permission to speak to the caregivers and representatives has been obtained from the patient. Yes * Community resources currently utilized Other * Please name any agencies selected above. [place]. [facility] Agency on Aging [place] [facility] Patient * Additional services required to return to the preadmission environment? No * Can the patient safely return to the preadmission environment? Yes * Has this patient been hospitalized within the prior 30 days at any hospital? No Coverage Notice Reviewer: [id number] Dejuan Hagan Notice Issued Date-Time: 08/17/2019 16:08 Notice Type: Medicare Outpatient Observation Notice Notice Delivered To: Patient Relationship to Patient: Self Circuit Board Drafter Name: Delivery Method: HAND - Hand Delivered Sherin Days: Prior Verbal Notification: Recipient Understood Notice: Yes Recipient Signature: Yes Med Rec Note Co-signed by Attending: Coverage Notice Comment: REBOLLEDO delivered to and signed by patient. Copy to chart. Last DP export: 08/18/19 11:19 Patient Name: ERIC WARD Page [phone] at 1226 All edits/amendments must be made on the electronic document DICTATION DATE: 08/18/19 1226 REHABILITATION SUPERVISOR: SHAKA 08/18/19 1226 RPT#: [id number] DC DATE: STATUS: ADM IN [facility] [address] [place] [address] END OF REPORT
[2019-08-18 12:37] VITALS: Ht 157.5 cm; Wt 68.0 kg
[2019-08-18 12:57] VITALS: BP 193/81
[2019-08-18] MEDS ORDERED: LIDODERM 5 %1 PATCH TRANSDERM (14:59)
--- NOTE | 2019-08-18 17:20 | NUR ---
ALL DISCHARGE PAPERS COVERED/QUESTIONS ANSWERED. ALL DISCHARGE PAPERS SIGNED. PIV TO LEFT AC REMOVED WITH CATHETER TIP INTACT. DRESSING APPLIED. PT DENIES FURTHER QUESTIONS/CONCERNS/NEEDS.
--- NOTE | 2019-08-19 16:15 | MORECARE ---
CASE MANAGEMENT DISCHARGE SUMMARY PATIENT: ERIC WARD UNIT: [id number] ADM DATE: 08/17/19 AGE: 79 : 41 SEX: F ROOM/BED: D.2225 AUTHOR: THOMAS MACIAS PHYSICIAN: REFERRING PHYSICIAN: ALVINA LORENZANA MD DATE OF SERVICE: 08/19/19 Discharge Plan Patient Name: ERIC WARD Facility: [facility]:[place] : 1940 Planned Disposition: Home with Home Health Anticipated Discharge Date: 08/18/19 Discharge Date: 08/18/2019 Expected LOS: 1 Initial Reviewer: [email or web address] Initial Review Date: 08/18/2019 Generated: 08/19/19 5:15 pm Comments DCP- Discharge Planning Updated by [email or web address]: Shaunna Ness on 08/18/19 11:[address] Patient Name: ERIC WARD Admission Status: ER Accout number: [id number] Admission Date: 08-17-2019 : 1940 Admission Diagnosis: Attending: ALVINA LORENZANA Current LOS: 1 Anticipated DC Date: 08-18-2019 Planned Disposition: Home with Home Health Primary Insurance: [facility] MEDICARE SOLUTIONS Discharge Planning Comments: CM met with patient to complete initial dc planning assessment. CM educated patient on the CM role and verbal consent given by patient to complete assessment. Patient lives at home with her son. At discharge patient plans to return and feels this is a safe discharge. CM discussed availability of home health, rehab services, and medical equipment. Patient states she has [email or web address] and would like it resumed. I called and spoke to intake there and they state she was discharged on , but will see her again with order. I faxed order and clinical to [facility]. She states she does not have a ride home today, I informed her that I could call [email or web address] or a taxi. She states she does not ride the [employer] but, states "I can never get ahold of them." I gave her the number for [employer]. She states she has [place] choices and also has a child welfare caseworker at [facility] on [facility] (Anne). I called to speak with Anne and she is out today, I left a message concerning patient because she states Anne is setting up meals and wheels for her and she hasn't heard anything. CM will continue to follow and will assist as needed with dc plans/needs. Service Order Expediter: Shaunna Thi DCPIA - Discharge Planning Initial Assessment Updated by [id number]: Shaunna Ness on 08/18/19 12:21 pm * Is the patient Alert and Oriented? Yes * How many steps to enter\\exit or inside your home? 4/0 * PCP Dr. Virk * Pharmacy [place] * Preadmission Environment Home with Family * ADLs Partial Dependent * Partial ADLs (Assistance needed) Ambulation Bathing Dressing Medication Management Transfers * Equipment Other Oxygen Walker * Other Equipment Shower bench * List name and contact numbers for known caregivers / representatives who currently or will assist patient after discharge: Fer Ward - jdw - [phone] * Verbal permission to speak to the caregivers and representatives has been obtained from the patient. Yes * Community resources currently utilized Other * Please name any agencies selected above. [place]. [facility] Agency on Aging [place] [facility] Patient * Additional services required to return to the preadmission environment? No * Can the patient safely return to the preadmission environment? Yes * Has this patient been hospitalized within the prior 30 days at any hospital? No Coverage Notice Reviewer: [id number] Dejuan Hagan Notice Issued Date-Time: 08/17/2019 16:08 Notice Type: Medicare Outpatient Observation Notice Notice Delivered To: Patient Relationship to Patient: Self Thermodynamics Engineer Name: Delivery Method: HAND - Hand Delivered Sherin Days: Prior Verbal Notification: Recipient Understood Notice: Yes Recipient Signature: Yes Med Rec Note Co-signed by Attending: Coverage Notice Comment: REBOLLEDO delivered to and signed by patient. Copy to chart. Reviewer: [email or web address] - Shaunna Thi Notice Issued Date-Time: 08/18/2019 12:26 Notice Type: Patient Choice Letter Notice Delivered To: Patient Relationship to Patient: Self Thermodynamics Engineer Name: Delivery Method: HAND - Hand Delivered Sherin Days: Prior Verbal Notification: Recipient Understood Notice: Yes Recipient Signature: Yes Med Rec Note Co-signed by Attending: Coverage Notice Comment: SASHA for [facility]. Last DP export: 08/18/19 11:26 Patient Name: ERIC WARD Page [id number] Electronically Signed by THOMAS [facility] on 08/19/19 at 1615 All edits/amendments must be made on the electronic document DICTATION DATE: 08/19/191614 PENSION MANAGER: SHAKA 08/19/191614 RPT#: [id number] DC DATE:08/18/19 STATUS: DIS IN [facility] [address] [place] [address] END OF REPORT
--- NOTE | 2019-08-23 11:41 | EC ---
PATIENT:ERIC WARD DATE OF SERVICE: 08/17/19 SEX: F MEDICAL RECORD: [id number] DATE OF : [birth year] LOCATION:D.MS [facility] AGE OF PATIENT: 79 ADMISSION DATE: 08/17/19 REFERRING PHYSICIAN: INTERPRETING PHYSICIAN: LINDA SMITH MD ECHOCARDIOGRAM REPORT ECHO CHARGES 4 ECHO COMPLETE Date: 08/18/19 CLINICAL DIAGNOSIS: DIZZINESS ECHOCARDIOGRAPHIC MEASUREMENTS (adult normal given) AC root (d.<3.7cm) 2.5 cm LV Septum d (<1.2 cm> 1.3 cm Valve Excursion 1.2 cm LV Septum (systole) 1.7 cm Left Atria (s.<4.0cm> 3.9 cm LVPW d(<1.2cm) 1.2 cm RV (d.<2.3cm) 2.3 cm LVPW (sytole) 1.8 cm LV diastole(<5.6CM) 4.1 cm MV E-F(>70mm/sec) cm LV systole 2.2 cm LVOT Diameter 1.8 cm MV exc.(>10mm) cm Est.ejection fraction (50-75%) % DOPPLER: LVIT cm/sec A 118 cm/sec E 77.0 cm/sec LA cm/sec RVSP 38.0 mmHg LVOT 83.0 cm/sec AOP1/2T m/s Asc. Ao 234 cm/sec RVOT 72.0 cm/sec RA cm/sec PA 83.0 cm/sec AV Gradient Peak 22.0 mmHg AV Mean 13.0 mmHg AV Area 0.9 cm MV Gradient Peak 7.2 mmHg MV Mean 2.6 mmHg MV Area cm COMMENTS: Structural Steel Detailer: 1 RENETTA PADILLAOE Sweatband Maker: 1 Dr. Smith TAPE# PACS Pericardial Effusion N DATE OF SERVICE: FINDINGS: 1. Left ventricular chamber size is within normal limits. Left ventricular systolic function is normal. Overall ejection fraction estimated at 55%. 2. Left atrium is within normal limits at 3.9 cm. Right atrium and right ventricular chamber sizes are mildly dilated. 3. Valvular structures: Aortic valve demonstrates [id number] calcific aortic stenosis. Valve area calculates to 0.9 cm-squared with a gradient of 22 mm across the valve. The remaining valvular structures have normal structure ECHOCARDIOGRAM REPORT [id number] CLOS,ERIC S and motion. 4. Doppler interrogation elsewise reveals mild aortic insufficiency, moderate mitral regurgitation, mild tricuspid regurgitation. No other valvular insufficiency or stenosis. Pulmonary systolic pressure is estimated 38 mmHg. 5. No evidence of pericardial effusion or left ventricular thrombus. TRANSINT:[id number] Voice Confirmation ID: [id number] DOCUMENT ID: [id number] LINDA SMITH MD at 1141 CC: [id number] DICTATION DATE: 08/19/19 1052 ACCOUNTING REPRESENTATIVE: 08/19/19 1101 DIS IN 08/18/19 [facility] [address] [place] [address]
== END 2019-08-18 17:38 | disposition home or self-care (01) ==
LOC: D.ER 11:34 → D.MS 14:06 → OBSVTIME 14:06 → D.MS 08-18 17:38
PROVIDERS: Family Medicine; ADMIT Internal Medicine Nephrology; ATTEND Internal Medicine Nephrology
DX: S22.42XA Multiple fractures of ribs, left side, initial encounter for closed fracture (principal); I16.0 Hypertensive urgency; E78.5 Hyperlipidemia, unspecified; I25.10 Atherosclerotic heart disease of native coronary artery without angina pectoris; E11.9 Type 2 diabetes mellitus without complications; J44.9 Chronic obstructive pulmonary disease, unspecified; K21.9 Gastro-esophageal reflux disease without esophagitis; F41.8 Other specified anxiety disorders; F41.0 Panic disorder [episodic paroxysmal anxiety]; W19.XXXA Unspecified fall, initial encounter

== ENCOUNTER 2020-03-12 20:54 | Inpatient (IN) | payer MEDICARE, MEDICAID ==
[~2020-03-12] VITALS: Ht 157.5 cm; Wt 66.2 kg
[~2020-03-12 20:54] MED LIST changes: +LIDODERM 5 %1 PATCH TRANSDERM; +WELLBUTRIN XL150 M1 PO
[2020-03-12 21:36] LABS: BASOPHILS 0.3 % (0-2); EOSINOPHILS 0.4 % (0-7); HEMATOCRIT 39.1 % (36.0-48.0); HEMOGLOBIN 12.3 g/dL (12-16); IMMATURE GRANULOCYTES 0.4 % (0-5); LYMPHOCYTES 12.1 % (15-50); MCH 27.3 pg (26.0-34.0); MCHC 31.5 g/dL (31.0-37.0); MCV 86.9 fL (80.0-100.0); MEAN PLATELET VOLUME 10.5 fL (7.4-10.4); MONOCYTES 6.4 % (2-11); NEUTROPHILS 80.4 % (40-80); PLATELET COUNT 289 10x3/uL (130-400); RDW 14.7 % (11.5-14.5); WBC 12.1 10x3/uL (4.8-10.8)
[2020-03-12 21:45] LABS: APTT 26.9 SECONDS (22.8-39.4); CALC OSMOLALITY 277 mosm/kg (275-300); CALCIUM 8.9 mg/dL (8.5-10.1); CHLORIDE - SERUM 103 mmol/L (98-107); CREATININE - SERUM 1.1 mg/dL (0.6-1.3); GLUCOSE 127 mg/dL (74-106); INR 1.05 (0.85-1.17); POTASSIUM - SERUM 3.9 mmol/L (3.5-5.1); PROTIME 13.6 SECONDS (11.6-15.0); SODIUM 137 mmol/L (136-145); UREA NITROGEN 19 mg/dL (7-18); eGFR NON AFRICAN AMERICAN 51 mL/min (90-120)
[2020-03-12 22:00] VITALS: BP 120/55
[2020-03-12 22:00] LABS: ALBUMIN 3.7 g/dL (3.4-5.0); ALKALINE PHOSPHATASE 133 U/L (30-120); ALT (SGPT) 24 U/L (10-68); BILIRUBIN - TOTAL 0.72 mg/dL (0.2-1.3); CREATINE KINASE 47 UL (21-215); LIPASE 135 U/L (73-393); MAGNESIUM - SERUM 2.1 mg/dL (1.8-2.4); PRO BNP 519 pg/mL (0-450); PROTEIN - SERUM 8.1 g/dL (6.4-8.2); THYROID STIMULATING HORMONE 2.39 uIU/mL (0.36-3.74); TROPONIN-I < 0.017 ng/mL (0.000-0.060)
[2020-03-12 22:03] LABS: D-DIMER-QUANTITATIVE 2.32 ug/mLFEU (0.20-0.54)
[2020-03-12 23:00] VITALS: BP 123/62
[2020-03-13] VITALS (10 sets, daily range): BP systolic 102–134; BP diastolic 52–69; BMI 27.5
[2020-03-13 00:17] LABS: BILIRUBIN NEGATIVE (NEGATIVE); GLUCOSE NEGATIVE (NEGATIVE); KETONE NEGATIVE (NEGATIVE); NITRITE NEGATIVE (NEGATIVE); UROBILINOGEN NORMAL (NORMAL)
[2020-03-13 00:21] LABS: BACTERIA MANY /hpf (NEGATIVE); EPITHELIAL CELLS 0-5 /hpf (0-5); RED CELLS - URINE 0-5 /hpf (0-5)
[2020-03-13] MEDS ORDERED: LISINOPRIL20 MG PO (01:46)
[2020-03-13] MEDS ORDERED: HYDROCODON-ACE1 EA10 PO (01:48)
[2020-03-13] MEDS ORDERED: HYDROCHLOROTHIA25 MG PO (01:49)
[2020-03-13] MEDS ORDERED: CLARITIN 10 MG10 MG PO (01:50)
[2020-03-13] MEDS ORDERED: [UNRECOGNIZED DRUG - REMARK] (01:52)
[2020-03-13] MEDS ORDERED: FLUTICASONE PRO16 GM NASAL (03:49)
[2020-03-13 06:48] LABS: BASOPHILS 0.2 % (0-2); EOSINOPHILS 0.5 % (0-7); HEMATOCRIT 35.5 % (36.0-48.0); IMMATURE GRANULOCYTES 0.4 % (0-5); LYMPHOCYTES 23.1 % (15-50); MCH 26.7 pg (26.0-34.0); MCV 86.2 fL (80.0-100.0); MEAN PLATELET VOLUME 10.7 fL (7.4-10.4); MONOCYTES 8.1 % (2-11); NEUTROPHILS 67.7 % (40-80); PLATELET COUNT 287 10x3/uL (130-400); RBC 4.12 10x6/uL (4.00-5.40); RDW 14.8 % (11.5-14.5); WBC 9.9 10x3/uL (4.8-10.8)
[2020-03-13 07:15] LABS: ALBUMIN 3.1 g/dL (3.4-5.0); ALKALINE PHOSPHATASE 113 U/L (30-120); CALC OSMOLALITY 281 mosm/kg (275-300); CALCIUM 8.3 mg/dL (8.5-10.1); CARBON DIOXIDE 26.4 mmol/L (21.0-32.0); CHLORIDE - SERUM 104 mmol/L (98-107); CKMB 0.9 U/L (0.0-3.6); CREATINE KINASE 40 UL (21-215); CREATININE - SERUM 1.2 mg/dL (0.6-1.3); GLUCOSE 158 mg/dL (74-106); POTASSIUM - SERUM 3.4 mmol/L (3.5-5.1); PROTEIN - SERUM 6.8 g/dL (6.4-8.2); SODIUM 139 mmol/L (136-145); TROPONIN-I < 0.017 ng/mL (0.000-0.060); UREA NITROGEN 16 mg/dL (7-18); eGFR NON AFRICAN AMERICAN 46 mL/min (90-120)
[2020-03-13 07:17] LABS: ALT (SGPT) 15 U/L (10-68)
--- NOTE | 2020-03-13 07:20 | NUR ---
RECIEVE REPORT. ALERT AND ORIENTED X4. SITTING UP IN BED. REPORTS NAUSEA. TREAT NAUSEA ORDERED. DENIES ANY OTHER NEEDS AT THIS TIME. CONTINUE PLAN OF CARE AND SAFETY PRECAUTIONS.
--- NOTE | 2020-03-13 10:37 | NUR ---
IVF RATE CHANGED TO 75ML/HR
--- NOTE | 2020-03-13 13:06 | NUR ---
Orthostatic VS: lying 107/52 HR 56 sitting 116/58, hr 58 standing 130/69, HR 66
[2020-03-13 17:19] LABS: ALBUMIN 3.2 g/dL (3.4-5.0); BILIRUBIN - TOTAL 0.58 mg/dL (0.2-1.3); CALCIUM 8.1 mg/dL (8.5-10.1); CREATININE - SERUM 1.2 mg/dL (0.6-1.3); PROTEIN - SERUM 6.9 g/dL (6.4-8.2)
--- NOTE | 2020-03-13 19:25 | NUR ---
REPORT RECEIVED, WILL CONTINUE POC. PATIENT IS AAOX4, LYING ON LT SIDE. NO S/S OF DISTRESS OBSERVED, RR EVEN AND UNLABORED ON ROOM AIR. PIV TO LT AC INFUSING NS @ 75ML/HR. PATIENT DENIES NEEDS AT THIS TIME. CL IN REACH, BED LOCKED AND LOWERED. WILL CTM.
--- NOTE | 2020-03-13 20:00 | NUR ---
ORTHSTATIC VITALS FOLLOWED: SITTIN/65, HR 68, O2 97 STANDIN/48, HR 70, O2 96 LAYIN/54, HR 66, O2 96
[2020-03-14] VITALS (7 sets, daily range): BP systolic 116–158; BP diastolic 51–70; Ht 157.5 cm; Wt 66.2 kg
[2020-03-14 06:27] LABS: BASOPHILS 0.6 % (0-2); EOSINOPHILS 2.1 % (0-7); HEMATOCRIT 31.6 % (36.0-48.0); HEMOGLOBIN 9.7 g/dL (12-16); IMMATURE GRANULOCYTES 0.3 % (0-5); LYMPHOCYTES 40.2 % (15-50); MCH 26.8 pg (26.0-34.0); MCHC 30.7 g/dL (31.0-37.0); MCV 87.3 fL (80.0-100.0); MEAN PLATELET VOLUME 10.8 fL (7.4-10.4); MONOCYTES 11.7 % (2-11); NEUTROPHILS 45.1 % (40-80); PLATELET COUNT 240 10x3/uL (130-400); RBC 3.62 10x6/uL (4.00-5.40); RDW 14.9 % (11.5-14.5)
[2020-03-14 06:28] LABS: WBC 6.8 10x3/uL (4.8-10.8)
[2020-03-14 06:29] LABS: ANION GAP 9.5 mmol/L (8-16); CALCIUM 7.9 mg/dL (8.5-10.1); CARBON DIOXIDE 25.4 mmol/L (21.0-32.0); CREATININE - SERUM 1.1 mg/dL (0.6-1.3); POTASSIUM - SERUM 3.9 mmol/L (3.5-5.1)
--- NOTE | 2020-03-14 07:50 | NUR ---
ORTHOSTATIC VS: LYING 137/67, 65 SITTING 146/67, 63 STANDING 158/70, 67
--- NOTE | 2020-03-14 10:30 | NUR ---
pt sat on side of bed to eat breakfast she reports cotninued weakness, requires standby-1 person assist for transfers. SCDS IN PLACE, BEDSIDE COMMODE AT BS AND CALL LIGHT IN REACH
--- NOTE | 2020-03-14 16:23 | NUR ---
Rehab Prescreening Consult recieved and the chart has been reviewed. She is [facility] managed Medicare and will require a preauth. She has a PT eval, but will also need an OT eval. According to the PT notes she has stated she does not want to come to rehab. Recommend the CM discuss rehab with her prior to rehab sending info to [facility] for preauth. Jinny Turner RN Clinical liaison, Rehab
--- NOTE | 2020-03-14 19:19 | NUR ---
REPORT RECEIVED, WILL CONTINUE POC. PATIENT IS AAOX4, LYING IN SEMI-FOWLERS POSITION. NO S/S OF DISTRESS OBSERVED, RR EVEN AND UNLABORED ON ROOM AIR. PATIENT DENIES NEEDS AT THIS TIME. CL IN REACH, BED LOCKED AND LOWERED. WILL CTM.
--- NOTE | 2020-03-14 20:00 | NUR ---
ORTHOSTATICS FOLLOWED: LAYIN/68 HR 72 O2 96% SITTIN/66 HR 75 O2 95% STANDIN/68 HR 75 O2 97%
[2020-03-15] VITALS: BP 155/70
[2020-03-15 04:00] VITALS: BP 168/75
[2020-03-15 06:46] LABS: BASOPHILS 0.4 % (0-2); EOSINOPHILS 2.3 % (0-7); HEMOGLOBIN 10.2 g/dL (12-16); IMMATURE GRANULOCYTES 0.3 % (0-5); LYMPHOCYTES 30.5 % (15-50); MCH 26.8 pg (26.0-34.0); MCHC 30.9 g/dL (31.0-37.0); MCV 86.8 fL (80.0-100.0); MEAN PLATELET VOLUME 10.9 fL (7.4-10.4); MONOCYTES 10.6 % (2-11); NEUTROPHILS 55.9 % (40-80); PLATELET COUNT 261 10x3/uL (130-400); RDW 14.9 % (11.5-14.5)
[2020-03-15 06:58] LABS: WBC 9.1 10x3/uL (4.8-10.8)
[2020-03-15 07:00] LABS: ANION GAP 11.6 mmol/L (8-16); CALCIUM 8.3 mg/dL (8.5-10.1); CARBON DIOXIDE 25.9 mmol/L (21.0-32.0); POTASSIUM - SERUM 3.5 mmol/L (3.5-5.1)
[2020-03-15 10:27] VITALS: BP 148/70
[2020-03-15 14:00] VITALS: BP 133/45
[2020-03-15 17:24] VITALS: BP 146/72
--- NOTE | 2020-03-15 19:00 | NUR ---
REPORT RECEIVED, WILL CONTINUE POC. PATIENT IS AAOX4, LYING IN SEMI-FOWLERS POSITION. NO S/S OF DISTRESS OBSERVED, RR EVEN AND UNLABORED ON 2L O2 VIA NC. PATIENT DENIES NEEDS AT THIS TIME. CL IN REACH, BED LOCKED AND LOWERED. WILL CTM.
[2020-03-15 20:00] VITALS: BP 156/74
--- NOTE | 2020-03-15 21:19 | NUR ---
ORTHOSTATIC BP FOLLOWED: LAYIN/74 HR 76 SITTIN/79 HR 75 STANDIN/77 HR 80
[2020-03-16 00:35] VITALS: BP 156/86
--- NOTE | 2020-03-16 03:42 | NUR ---
I have reviewed this patient and I concur with the Shift Assessment completed by the Licensed Practical Nurse today this shift.
[2020-03-16 04:00] VITALS: BP 149/82
--- NOTE | 2020-03-16 07:15 | NUR ---
RECEIVED PT IN BED EYES CLOSED RESP UNLABORED SKIN W/D COLOR NAD NOTED
--- NOTE | 2020-03-16 07:51 | MORECARE ---
CASE MANAGEMENT DISCHARGE SUMMARY PATIENT: ERIC WARD UNIT: [id number] ADM DATE: 03/13/20 AGE: 79 : 41 SEX: F ROOM/BED: D.8704 AUTHOR: THOMAS MACIAS PHYSICIAN: REFERRING PHYSICIAN: ALVINA LORENZANA MD DATE OF SERVICE: 03/16/20 Discharge Plan Patient Name: ERIC WARD [facility] [facility] 1940 Planned Disposition: Home with Home Health Anticipated Discharge Date: Discharge Date: Expected LOS: Initial Reviewer: [email or web address] Initial Review Date: 03/16/2020 Generated: 03/16/20 8:50 am Coverage Notice Reviewer: [id number] Dejuan Biswas Notice Issued Date-Time: 03/13/2020 16:19 Notice Type: Medicare Outpatient Observation Notice Notice Delivered To: Patient Relationship to Patient: Accounts Payable Administrator Name: Delivery Method: - Sherin Days: Prior Verbal Notification: Recipient Understood Notice: Recipient Signature: Med Rec Note Co-signed by Attending: Coverage Notice Comment: Patient Name: ERIC WARD Page [phone] at 0751 All edits/amendments must be made on the electronic document DICTATION DATE: 03/16/20749 DESIGN ENGINEERING MANAGER: SHAKA 03/16/20749 RPT#: [id number] DC DATE: STATUS: ADM IN [facility] [address] [place] [address] END OF REPORT
[2020-03-16 07:55] VITALS: BP 161/83; BP 174/88; BP 176/81
--- NOTE | 2020-03-16 07:59 | MORECARE ---
CASE MANAGEMENT DISCHARGE SUMMARY PATIENT: ERIC WARD UNIT: [id number] ADM DATE: 03/13/20 AGE: 79 : 41 SEX: F ROOM/BED: D.6136 AUTHOR: THOMAS MACIAS PHYSICIAN: REFERRING PHYSICIAN: ALVINA LORENZANA MD DATE OF SERVICE: 03/16/20 Discharge Plan Patient Name: ERIC WARD Facility: [facility]:[place] : 1940 Planned Disposition: Home with Home Health Anticipated Discharge Date: Discharge Date: Expected LOS: Initial Reviewer: [email or web address] Initial Review Date: 03/16/2020 Generated: 03/16/20 8:59 am Comments DCP- Discharge Planning Updated by [email or web address]: Shaunna Ness on 03/16/20 6:[address] Patient Name: ERIC WARD Admission Status: ER Accout number: [id number] Admission Date: 03-13-2020 : 1940 Admission Diagnosis:SYNCOPE AND COLLAPSE Attending: ALVINA LORENZANA Current LOS: 3 Anticipated DC Date: Planned Disposition: Home with Home Health Primary Insurance: [facility] MEDICARE SOLUTIONS Discharge Planning Comments: CM met with patient to complete initial dc planning assessment. CM educated patient on the CM role and verbal consent given by patient to complete assessment. Patient lives in a single story home with her son. She states her son "is her assisted living care manager". At discharge patient plans to return and feels this is a safe discharge. CM discussed availability of home health, rehab services, and medical equipment. Patient states she think home health is a good idea. She does not want [facility]. She states "I think they discharged me too soon". She states she will not go to a retirement for rehab. She will consider inpatient rehab at [facility]. States "let me think about that", when I questioned her about inpatient rehab. CM will continue to follow and will assist as needed with dc plans/needs. Inventory Worker: Shaunna Ness DCPIA - Discharge Planning Initial Assessment Updated by [email or web address]: Shaunna Ness on 03/16/20 7:53 am * Is the patient Alert and Oriented? Yes * How many steps to enter\\exit or inside your home? 4/0 * PCP Dr. Virk * Pharmacy [facility] * Preadmission Environment Home with Family * ADLs Partial Dependent * Partial ADLs (Assistance needed) Ambulation Bathing Dressing Medication Management Transfers * Equipment Other Oxygen Walker * Other Equipment Portable oxygen * List name and contact numbers for known caregivers / representatives who currently or will assist patient after discharge: Fer Ward - [phone] (per nursing assessment) * Verbal permission to speak to the caregivers and representatives has been obtained from the patient. Yes * Community resources currently utilized None * Additional services required to return to the preadmission environment? No * Can the patient safely return to the preadmission environment? Yes * Has this patient been hospitalized within the prior 30 days at any hospital? No External Providers External Provider: [facility] Contact Date: Service Request Date: Service Type: Resolution: Reviewer: Comments: Coverage Notice Reviewer: [email or web address] Dejuan Biswas Notice Issued Date-Time: 03/13/2020 16:19 Notice Type: Medicare Outpatient Observation Notice Notice Delivered To: Patient Relationship to Patient: Headwaitress Name: Delivery Method: - Sherin Days: Prior Verbal Notification: Recipient Understood Notice: Recipient Signature: Med Rec Note Co-signed by Attending: Coverage Notice Comment: Last DP export: 03/16/20 6:51 a Patient Name: ERIC WARD Page [phone] at 0759 All edits/amendments must be made on the electronic document DICTATION DATE: 03/16/20 075 PHOTOENGRAVING PRINTER: SHAKA 03/16/20 0759 RPT#: [id number] DC DATE: STATUS: ADM IN [facility] [address] [place] [address] END OF REPORT
--- NOTE | 2020-03-16 09:07 | MORECARE ---
CASE MANAGEMENT DISCHARGE SUMMARY PATIENT: ERIC WARD UNIT: [id number] ADM DATE: 03/13/20 AGE: 79 : 41 SEX: F ROOM/BED: D.5541 AUTHOR: THOMAS MACIAS PHYSICIAN: REFERRING PHYSICIAN: ALVINA LORENZANA MD DATE OF SERVICE: 03/16/20 Discharge Plan Patient Name: ERIC WARD Facility: [facility]:[place] : 1940 Planned Disposition: Home with Home Health Anticipated Discharge Date: Discharge Date: Expected LOS: Initial Reviewer: [id number] Initial Review Date: 03/16/2020 Generated: 03/16/20 10:07 am Comments DCP- Discharge Planning Updated by [email or web address]: Shaunna Ness on 03/16/20 6:[address] Patient Name: ERIC WARD Admission Status: ER Accout number: [id number] Admission Date: 03-13-2020 : 1940 Admission Diagnosis:SYNCOPE AND COLLAPSE Attending: ALVINA LORENZANA Current LOS: 3 Anticipated DC Date: Planned Disposition: Home with Home Health Primary Insurance: [facility] MEDICARE SOLUTIONS Discharge Planning Comments: CM met with patient to complete initial dc planning assessment. CM educated patient on the CM role and verbal consent given by patient to complete assessment. Patient lives in a single story home with her son. She states her son "is her pet care worker". At discharge patient plans to return and feels this is a safe discharge. CM discussed availability of home health, rehab services, and medical equipment. Patient states she think home health is a good idea. She [facility] not want [facility]. She states "I think they discharged me too soon". She states she will not go to a longterm for rehab. She will consider inpatient rehab at [facility]. States "let me think about that", when I questioned her about inpatient rehab. CM will continue to follow and will assist as needed with dc plans/needs. Cds Sales Advisor: Shaunna Ness DCPIA - Discharge Planning Initial Assessment Updated by [email or web address]: Shaunna Ness on 03/16/20 7:53 am * Is the patient Alert and Oriented? Yes * How many steps to enter\\exit or inside your home? 4/0 * PCP Dr. Virk * Pharmacy [place] * Preadmission Environment Home with Family * ADLs Partial Dependent * Partial ADLs (Assistance needed) Ambulation Bathing Dressing Medication Management Transfers * Equipment Other Oxygen Walker * Other Equipment Portable oxygen * List name and contact numbers for known caregivers / representatives who currently or will assist patient after discharge: Fer Ward - [phone] (per nursing assessment) * Verbal permission to speak to the caregivers and representatives has been obtained from the patient. Yes * Community resources currently utilized None * Additional services required to return to the preadmission environment? No * Can the patient safely return to the preadmission environment? Yes * Has this patient been hospitalized within the prior 30 days at any hospital? No External Providers External Provider: [email or web address] Next Contact Date: Service Request Date: Service Type: Resolution: Reviewer: Comments: Coverage Notice Reviewer: [id number] Dejuan Biswas Notice Issued Date-Time: 03/13/2020 16:19 Notice Type: Medicare Outpatient Observation Notice Notice Delivered To: Patient Relationship to Patient: Cloth Hand Name: Delivery Method: - Sherin Days: Prior Verbal Notification: Recipient Understood Notice: Recipient Signature: Med Rec Note Co-signed by Attending: Coverage Notice Comment: Reviewer: [email or web address] Ness Notice Issued Date-Time: 03/16/2020 8:00 Notice Type: IM Discharge Notice Notice Delivered To: Patient Relationship to Patient: Self Cloth Hand Name: Delivery Method: HAND - Hand Delivered Sherin Days: Prior Verbal Notification: Recipient Understood Notice: Yes Recipient Signature: Yes Med Rec Note Co-signed by Attending: Coverage Notice Comment: IMM explained, signed, given, copy placed in MR Reviewer: [id number] Dejuan Ness Notice Issued Date-Time: 03/16/2020 8:00 Notice Type: Patient Choice Letter Notice Delivered To: Patient Relationship to Patient: Self Cloth Hand Name: Delivery Method: HAND - Hand Delivered Sherin Days: Prior Verbal Notification: Recipient Understood Notice: Yes Recipient Signature: Yes Med Rec Note Co-signed by Attending: Coverage Notice Comment: SASHA for inpatient rehab if [facility] (if she decides to go) Care [facility] or [facility] 3rd is Annita Last DP export: 03/16/20 6:59 a Patient Name: ERIC WARD Page [phone] at 0907 All edits/amendments must be made on the electronic document DICTATION DATE: 03/16/20906 AWNING SPREADER: SHAKA 03/16/20906 RPT#: [id number] DC DATE: STATUS: ADM IN [facility] [address] [place] [address] END OF REPORT
[2020-03-16 09:12] LABS: BASOPHILS 0.5 % (0-2); EOSINOPHILS 3.5 % (0-7); HEMATOCRIT 30.6 % (36.0-48.0); HEMOGLOBIN 9.5 g/dL (12-16); IMMATURE GRANULOCYTES 0.4 % (0-5); LYMPHOCYTES 21.8 % (15-50); MCH 27.2 pg (26.0-34.0); MCV 87.7 fL (80.0-100.0); MEAN PLATELET VOLUME 10.9 fL (7.4-10.4); NEUTROPHILS 61.8 % (40-80); PLATELET COUNT 245 10x3/uL (130-400); RBC 3.49 10x6/uL (4.00-5.40); RDW 14.9 % (11.5-14.5)
[2020-03-16 09:31] LABS: ANION GAP 9.9 mmol/L (8-16); CARBON DIOXIDE 27.5 mmol/L (21.0-32.0); POTASSIUM - SERUM 3.4 mmol/L (3.5-5.1)
--- NOTE | 2020-03-16 11:35 | NUR ---
REHAB PRESCREENING Rehab referral received and chart reviewed. This patient has [facility] which requires authorization. PT, OT, ST evaluations are in place. I will begin authorization and notify case management of decision. She will then be ready for admission to rehab if she is agreeable to come and participate in the required 3 hours of therapy. Thank you for this referral! Africa Islas, QUICK SERVICE TECHNICIAN Rehab PD
--- NOTE | 2020-03-16 12:31 | NUR ---
Nutrition Follow-up: Pt not in room at time of visit this AM but observed majority of breakfast eaten. Noted MBSS done today with no findings of laryngeal penetration or aspiration. Diet: Diabetic, Mech Soft, [place] Thick Liquids Labs noted: K+ 3.4, Glu 94, Ca 8.0 Meds noted: Humulin, Protonix, NS @ 75, Zofran, electrolyte protocol -Encourage PO intake and honor food preferences within diet restrictions. -Monitor wt; noted daily wts ordered. -RD following.
--- NOTE | 2020-03-16 16:50 | NUR ---
OT NOTE: PT COMPLETED FACE AND HAND HYGIENE WITH SETUP. PT COMPLETED BUE AROM EXS TOLERATED. [phone] THOMAS ZEPEDA COTA
[2020-03-16 16:54] VITALS: BP 165/78
--- NOTE | 2020-03-16 19:22 | NUR ---
RECEIVED UP IN BED WITH HOB ELEVATED. ALERT AND ORIENTED X4. UP WITH STAND BY ASSIST TO BEDSIDE COMMODE.V TO LT FA WITH NS AT 75CC/HR. REMAINS ON THICKEN LIQUID. SCD'S IN PLACE. DENIES ANY NEEDS AT THIS TIME.
[2020-03-16 20:30] VITALS: BP 168/78
[2020-03-17] VITALS (7 sets, daily range): BP systolic 151–199; BP diastolic 75–99
[2020-03-17 05:33] LABS: BASOPHILS 0.3 % (0-2); EOSINOPHILS 2.4 % (0-7); HEMATOCRIT 32.9 % (36.0-48.0); HEMOGLOBIN 10.4 g/dL (12-16); IMMATURE GRANULOCYTES 0.5 % (0-5); LYMPHOCYTES 21.4 % (15-50); MCH 27.4 pg (26.0-34.0); MCHC 31.6 g/dL (31.0-37.0); MCV 86.8 fL (80.0-100.0); MONOCYTES 13.2 % (2-11); NEUTROPHILS 62.2 % (40-80); RBC 3.79 10x6/uL (4.00-5.40); RDW 14.7 % (11.5-14.5)
[2020-03-17 05:40] LABS: PLATELET COUNT 192 10x3/uL (130-400)
[2020-03-17 05:46] LABS: ANION GAP 10.9 mmol/L (8-16); CALCIUM 8.3 mg/dL (8.5-10.1); CARBON DIOXIDE 26.9 mmol/L (21.0-32.0); POTASSIUM - SERUM 3.8 mmol/L (3.5-5.1)
--- NOTE | 2020-03-17 07:15 | NUR ---
RECEIVED PT IN BED EYES CLOSED RESP UNLABORED SKIN W/D COLOR WNL NAD NOTED
--- NOTE | 2020-03-17 08:00 | NUR ---
ORTHOSTATIC VS L-97.7 131/80 P 77 SIT- 96 152/80 STAND- 80
--- NOTE | 2020-03-17 21:57 | NUR ---
INITIAL ROUNDS COMPLETED AT 1910 HRS. PT DENIED ANY DISCOMFORT. ASSESMENT COMPLETED AT 1954 HRS. ALERT AND ORIENTED TO PERSON, PLACE AND TIME. CLEARY. IV TO LFA WITH NS AT 75CC/HR. IV PATENT. LUNGS ESSENTIALLY CTA. CLEARY. ASSSITED TO BSC. SLIGHTLY UNSTEADY ON FEET. VOIDED 400CC OF CLEAR, YELLOW URINE. ASSISSTED BACK TO BED. 1999 BP[ 199/96. ORTHOSTATIC VS DONE. LYINING BP 199/96 PULSE.85. SITTING 188/89 PULSE 86. STANDING 163/88 PULSE 84. DENIED ANY DIZZINESS. RECHECKED BP PRIOR TO IMDUR ADMINISTRATION WITH BP 164/99. PM FSBS 155. 2 UNITS REG INSULIN GIVEN SUB-Q TO UPPER L ARM. PM MEDS GIVEN. PT CURRENTLY WATCHING TV. SR UP X1, CALL LIGHT WITHIN REACH.
--- NOTE | 2020-03-17 23:52 | NUR ---
PT STATES PAIN LEVEL NOW A 4/10. BP IMPROVED WITH SBP 160. SR UP X2, CALL LIGHT WITHIN REACH.
[2020-03-18] VITALS: BP 160/70
--- NOTE | 2020-03-18 02:34 | NUR ---
ASSISTED PT TO BSC. VOIDED 300CC OF CLEAR YELLOW URINE. ASSISTED BACK TO BED. SR UP X2, CALL LIGHT WITHIN REACH.
[2020-03-18 04:00] VITALS: BP 157/80
--- NOTE | 2020-03-18 04:24 | NUR ---
PT RESTING WITH EYES CLOSED. RESP EVEN AND REGULAR. CALL LIGHT WITHIN REACH.
[2020-03-18 04:54] LABS: BASOPHILS 0.3 % (0-2); EOSINOPHILS 2.6 % (0-7); HEMATOCRIT 32.7 % (36.0-48.0); HEMOGLOBIN 10.3 g/dL (12-16); IMMATURE GRANULOCYTES 1.6 % (0-5); LYMPHOCYTES 18.9 % (15-50); MCH 27.4 pg (26.0-34.0); MCHC 31.5 g/dL (31.0-37.0); MEAN PLATELET VOLUME 10.5 fL (7.4-10.4); MONOCYTES 13.8 % (2-11); NEUTROPHILS 62.8 % (40-80); RBC 3.76 10x6/uL (4.00-5.40); RDW 14.9 % (11.5-14.5); WBC 8.9 10x3/uL (4.8-10.8)
[2020-03-18 05:02] LABS: PLATELET COUNT 238 10x3/uL (130-400)
[2020-03-18 05:08] LABS: ANION GAP 10.8 mmol/L (8-16); CALCIUM 8.4 mg/dL (8.5-10.1); CARBON DIOXIDE 26.7 mmol/L (21.0-32.0); CREATININE - SERUM 1.1 mg/dL (0.6-1.3); POTASSIUM - SERUM 3.5 mmol/L (3.5-5.1)
--- NOTE | 2020-03-18 06:31 | NUR ---
AM K+ 3.5. 40 MEQ KCL GIVEN PER S/S. NORCO GIVEN FOR C/O HIP PAIN. NEEDS MET; WILL CONTINUE TO MONITOR.
[2020-03-18 10:12] VITALS: BP 138/78
--- NOTE | 2020-03-18 11:00 | NUR ---
IV RESTARTED TO LEFT ARM WITH 22 GAUGE CATH X 1 STICK AND FLUSHED WITH NS. LINE IS PATENT.
[2020-03-18 13:04] VITALS: BP 155/79
--- NOTE | 2020-03-18 15:23 | NUR ---
STATES SHE IS NOT READY FOR DC. SHE HAS NOT SEEN HEART DR. YET. KYRIE RODRIGEZ. KYRIE CHOWDHURY FOR DR. LORENZANA SYGarett SHE NEEDS TO BE SEEN BY CARDIOLOGY FIRST FOR HIS RECOMENATIONS AND IF CLEARED. MAY PROCEED WITH DC. DR. RODRIGUEZ HAS BEEN SENT ANOTHER TEXT TO SEE PATIENT. WILL CONT. TO MONITOR.
[2020-03-18] MEDS ORDERED: CATAPRES0.1 MG PO (18:05)
[2020-03-18 18:53] VITALS: BP 129/87
--- NOTE | 2020-03-18 19:14 | MORECARE ---
CASE MANAGEMENT DISCHARGE SUMMARY PATIENT: ERIC WARD UNIT: [id number] ADM DATE: 03/13/20 AGE: 79 : 41 SEX: F ROOM/BED: D.6310 AUTHOR: COLLEENDOC PHYSICIAN: REFERRING PHYSICIAN: ALVINA LORENZANA MD DATE OF SERVICE: 03/18/20 Discharge Plan Patient Name: ERIC WARD Facility: [facility]:[place] : 1940 Planned Disposition: Home with Home Health Anticipated Discharge Date: Discharge Date: Expected LOS: Initial Reviewer: [email or web address] Initial Review Date: 03/16/2020 Generated: 03/18/20 8:13 pm Comments DCP- Discharge Planning Updated by [email or web address]: Siri Abebe on 03/18/20 6:[address] CM received notice of discharge and contacted [facility] [phone] to notify them of discharge. Nurse superintendent overhead distribution stated that she thought patient was discharged Thursday so they had her on the schedule for today. Betty stated that they are full at this time and will not be able to see patient until for admit. ASHOK relayed this information to patients nurse for discharge. DCP- Discharge Planning Updated by [email or web address]: Shaunna Ness on 03/16/20 6:[address] Patient Name: ERIC WARD Admission Status: ER Accout number: [id number] Admission Date: 03-13-2020 : 1940 Admission Diagnosis:SYNCOPE AND COLLAPSE Attending: ALVINA LORENZANA Current LOS: 3 Anticipated DC Date: Planned Disposition: Home with Home Health Primary Insurance: [facility] MEDICARE SOLUTIONS Discharge Planning Comments: CM met with patient to complete initial dc planning assessment. CM educated patient on the CM role and verbal consent given by patient to complete assessment. Patient lives in a single story home with her son. She states her son "is her care taker". At discharge patient plans to return and feels this is a safe discharge. CM discussed availability of home health, rehab services, and medical equipment. Patient states she think home health is a good idea. She does not want [facility]. She states "I think they discharged me too soon". She states she will not go to a retirement for rehab. She will consider inpatient rehab at [facility]. States "let me think about that", when I questioned her about inpatient rehab. CM will continue to follow and will assist as needed with dc plans/needs. Manager Training: Shaunna Ness DCPIA - Discharge Planning Initial Assessment Updated by [email or web address]: Shaunna Ness on 03/16/20 7:53 am * Is the patient Alert and Oriented? Yes * How many steps to enter\\exit or inside your home? 4/0 * PCP Dr. Virk * Pharmacy [facility] * Preadmission Environment Home with Family * ADLs Partial Dependent * Partial ADLs (Assistance needed) Ambulation Bathing Dressing Medication Management Transfers * Equipment Other Oxygen Walker * Other Equipment Portable oxygen * List name and contact numbers for known caregivers / representatives who currently or will assist patient after discharge: Fer [facility] - [phone] (per nursing assessment) * Verbal permission to speak to the caregivers and representatives has been obtained from the patient. Yes * Community resources currently utilized None * Additional services required to return to the preadmission environment? No * Can the patient safely return to the preadmission environment? Yes * Has this patient been hospitalized within the prior 30 days at any hospital? No Coverage Notice Reviewer: [email or web address] Dejuan Biswas Notice Issued Date-Time: 03/13/2020 16:19 Notice Type: Medicare Outpatient Observation Notice Notice Delivered To: Patient Relationship to Patient: Philosophy Specialist Name: Delivery Method: - Sherin Days: Prior Verbal Notification: Recipient Understood Notice: Recipient Signature: Med Rec Note Co-signed by Attending: Coverage Notice Comment: Reviewer: [email or web address] Dejuan Ness Notice Issued Date-Time: 03/16/2020 8:00 Notice Type: IM Discharge Notice Notice Delivered To: Patient Relationship to Patient: Self Philosophy Specialist Name: Delivery Method: HAND - Hand Delivered Sherin Days: Prior Verbal Notification: Recipient Understood Notice: Yes Recipient Signature: Yes Med Rec Note Co-signed by Attending: Coverage Notice Comment: IMM explained, signed, given, copy placed in MR Reviewer: [id number] Dejuan Ness Notice Issued Date-Time: 03/16/2020 8:00 Notice Type: Patient Choice Letter Notice Delivered To: Patient Relationship to Patient: Self Philosophy Specialist Name: Delivery Method: HAND - Hand Delivered Sherin Days: Prior Verbal Notification: Recipient Understood Notice: Yes Recipient Signature: Yes Med Rec Note Co-signed by Attending: Coverage Notice Comment: SASHA for inpatient rehab if [facility] (if she decides to go) [facility] or [facility] 3rd is [place] Last DP export: 03/16/20 8:07 a Patient Name: ERIC WARD Page [id number] at 1914 All edits/amendments must be made on the electronic document DICTATION DATE: 03/18/201912 PHYSICIAN OFFICE NURSE: SHAKA 03/18/201912 RPT#: [id number] DC DATE: STATUS: ADM IN [facility] [address] [place] [address] END OF REPORT
--- NOTE | 2020-03-18 19:44 | NUR ---
BEDSIDE SHIFT REPORT COMPLETED AT 1915 HRS. PT DENIED ANY DISCOMFORT. ASSISTED TO BSC. LARGE BM NOTED. ASISTED BACK TO BED. AWAITING SON. DC PAPERWORK COMPLETED BY Ezequiel BELL RN. IV OUT. SON HERE AT 1940 HRS. TO POV VIA W/C.
--- NOTE | 2020-03-18 20:03 | MORECARE ---
CASE MANAGEMENT DISCHARGE SUMMARY PATIENT: ERIC WARD UNIT: [id number] ADM DATE: 03/13/20 AGE: 79 : 41 SEX: F ROOM/BED: D.2937 AUTHOR: COLLEEN,DOC PHYSICIAN: REFERRING PHYSICIAN: ALVINA LORENZANA MD DATE OF SERVICE: 03/18/20 Discharge Plan Patient Name: ERIC WARD Facility: [facility]:[place] : 1940 Planned Disposition: Home with Home Health Anticipated Discharge Date: Discharge Date: 03/18/2020 Expected LOS: Initial Reviewer: [id number] Initial Review Date: 03/16/2020 Generated: 03/18/20 9:02 pm Comments DCP- Discharge Planning Updated by [email or web address]: Siri Abebe on 03/18/20 6:[address] CM received notice of discharge and contacted [facility] [phone] to notify them of discharge. Nurse formulation chemist stated that she thought patient was discharged Thursday so they had her on the schedule for today. Betty stated that they are full at this time and will not be able to see patient until for admit. ASHOK relayed this information to patients nurse for discharge. DCP- Discharge Planning Updated by [email or web address]: Shaunna Ness on 03/16/20 6:[address] Patient Name: ERIC WARD Admission Status: ER Accout number: [id number] Admission Date: 03-13-2020 : 1940 Admission Diagnosis:SYNCOPE AND COLLAPSE Attending: ALVINA LORENZANA Current LOS: 3 Anticipated DC Date: Planned Disposition: Home with Home Health Primary Insurance: [facility] MEDICARE SOLUTIONS Discharge Planning Comments: CM met with patient to complete initial dc planning assessment. CM educated patient on the CM role and verbal consent given by patient to complete assessment. Patient lives in a single story home with her son. She states her son "is her health care facility administrator". At discharge patient plans to return and feels this is a safe discharge. CM discussed availability of home health, rehab services, and medical equipment. Patient states she think home health is a good idea. She does not want [facility]. She states "I think they discharged me too soon". She states she will not go to a alf for rehab. She will consider inpatient rehab at [facility]. States "let me think about that", when I questioned her about inpatient rehab. CM will continue to follow and will assist as needed with dc plans/needs. On Site Manager: Shaunna Ness DCPIA - Discharge Planning Initial Assessment Updated by [email or web address]: Shaunna Ness on 03/16/20 7:53 am * Is the patient Alert and Oriented? Yes * How many steps to enter\\exit or inside your home? 4/0 * PCP Dr. Virk * Pharmacy [facility] * Preadmission Environment Home with Family * ADLs Partial Dependent * Partial ADLs (Assistance needed) Ambulation Bathing Dressing Medication Management Transfers * Equipment Other Oxygen Walker * Other Equipment Portable oxygen * List name and contact numbers for known caregivers / representatives who currently or will assist patient after discharge: Fer [facility] - [phone] (per nursing assessment) * Verbal permission to speak to the caregivers and representatives has been obtained from the patient. Yes * Community resources currently utilized None * Additional services required to return to the preadmission environment? No * Can the patient safely return to the preadmission environment? Yes * Has this patient been hospitalized within the prior 30 days at any hospital? No Coverage Notice Reviewer: [id number] Dejuan Ness Notice Issued Date-Time: 03/16/2020 8:00 Notice Type: Patient Choice Letter Notice Delivered To: Patient Relationship to Patient: Self Renovation Plant Supervisor Name: Delivery Method: HAND - Hand Delivered Sherin Days: Prior Verbal Notification: Recipient Understood Notice: Yes Recipient Signature: Yes Med Rec Note Co-signed by Attending: Coverage Notice Comment: SASHA for inpatient rehab if [facility] (if she decides to go) Care 4 or [facility] 3rd is [place] Reviewer: [id number] Dejuan Ness Notice Issued Date-Time: 03/16/2020 8:00 Notice Type: IM Discharge Notice Notice Delivered To: Patient Relationship to Patient: Self Renovation Plant Supervisor Name: Delivery Method: HAND - Hand Delivered Sherin Days: Prior Verbal Notification: Recipient Understood Notice: Yes Recipient Signature: Yes Med Rec Note Co-signed by Attending: Coverage Notice Comment: IMM explained, signed, given, copy placed in MR Reviewer: [email or web address] Dejuan Biswas Notice Issued Date-Time: 03/13/2020 16:19 Notice Type: Medicare Outpatient Observation Notice Notice Delivered To: Patient Relationship to Patient: Renovation Plant Supervisor Name: Delivery Method: - Sherin Days: Prior Verbal Notification: Recipient Understood Notice: Recipient Signature: Med Rec Note Co-signed by Attending: Coverage Notice Comment: Last DP export: 03/18/20 6:14 p Patient Name: ERIC WARD Page [id number] at 2003 All edits/amendments must be made on the electronic document DICTATION DATE: 03/18/202001 CURB SETTER: SHAKA 03/18/202001 RPT#: [id number] DC DATE:03/18/20 STATUS: DIS IN [facility] [address] [place] [address] END OF REPORT
--- NOTE | 2020-03-19 09:10 | EC ---
PATIENT:ERIC WARD DATE OF SERVICE: 03/13/20 SEX: F MEDICAL RECORD: [id number] DATE OF : [birth year] LOCATION:D.M2 D.211 AGE OF PATIENT: 79 ADMISSION DATE: 03/13/20 REFERRING PHYSICIAN: INTERPRETING PHYSICIAN: BRENDON RODRIGUEZ MD ECHOCARDIOGRAM REPORT ECHO CHARGES 4 ECHO COMPLETE Date: 03/18/20 CLINICAL DIAGNOSIS: DESEQUALIBRIUM, HX CAD/STENTS ECHOCARDIOGRAPHIC MEASUREMENTS (adult normal given) AC root (d.<3.7cm) 3.0 cm LV Septum d (<1.2 cm> 1.4 cm Valve Excursion 1.1 cm LV Septum (systole) 1.5 cm Left Atria (s.<4.0cm> 3.0 cm LVPW d(<1.2cm) 1.1 cm RV (d.<2.3cm) 3.0 cm LVPW (sytole) 1.4 cm LV diastole(<5.6CM) 5.4 cm MV E-F(>70mm/sec) cm LV systole 3.6 cm LVOT Diameter 1.5 cm MV exc.(>10mm) 1.1 cm Est.ejection fraction (50-75%) % DOPPLER: LVIT cm/sec A 100.0cm/sec E 79.0 cm/sec LA cm/sec RVSP 17 mmHg LVOT 106 cm/sec AOP1/2T m/s Asc. Ao 197 cm/sec RVOT 99 cm/sec RA cm/sec PA 124 cm/sec AV Gradient Peak mmHg AV Mean mmHg AV Area 1.1 cm MV Gradient Peak 5.44 mmHg MV Mean 2.03 mmHg MV Area cm COMMENTS: Core Composer Feeder: 2 VINCENT MELVIN Beer Still Runner Compounder: 3 Dr. Prajapati TAPE# PACS Pericardial Effusion N DATE OF SERVICE: 03/18/2020 PROCEDURE: Transthoracic echocardiogram. FINDINGS: 1. Left ventricle shows left ventricular hypertrophy. Ejection fraction is hyperdynamic. EF is 65% to 70% without regional wall motion abnormalities. The patient has diastolic dysfunction. 2. Left atrium is normal size, shape, and function. 3. Aortic valve appears to be small. Overall, there is no evidence of ECHOCARDIOGRAM REPORT [id number] ERIC WARD significant mitral regurgitation or aortic stenosis or aortic insufficiency. 4. Mitral valve normal structure and function. 5. Tricuspid valve has trace tricuspid regurgitation with normal pulmonary pressures. 6. Right ventricle is mildly enlarged. 7. The right atrium is normal structure and function. 8. Pulmonic valve is normal structure and function. 9. Pericardium is normal. IMPRESSION: The patient has evidence of hypertensive heart disease with left ventricular hypertrophy. TRANSINT:[id number] Voice Confirmation ID: [id number] DOCUMENT ID: [id number] BRENDON RODRIGUEZ MD at 0910 CC: [id number] DICTATION DATE: 03/19/20806 TUBE BUFFER: 03/19/20 [id number] DIS IN 03/18/20 [facility] [address] [place] [address]
== END 2020-03-18 19:45 | disposition home health service (06) | DRG 312 ==
LOC: D.ER 20:54 → OBSVTIME 23:45 → D.M2 23:45
PROVIDERS: Family Medicine; ADMIT Internal Medicine Nephrology; ATTEND Internal Medicine Nephrology
DX: R55 Syncope and collapse (principal); N39.0 Urinary tract infection, site not specified; R00.1 Bradycardia, unspecified; D64.9 Anemia, unspecified; E87.6 Hypokalemia; I10 Essential (primary) hypertension; E78.5 Hyperlipidemia, unspecified; I25.10 Atherosclerotic heart disease of native coronary artery without angina pectoris; E11.9 Type 2 diabetes mellitus without complications; F41.8 Other specified anxiety disorders; Z86.73 Personal history of transient ischemic attack (TIA), and cerebral infarction without residual deficits

== ENCOUNTER 2020-07-05 21:34 | Emergency (ER) | payer MEDICARE, MEDICAID ==
[~2020-07-05] VITALS: Ht 157.5 cm; Wt 90.9 kg
[~2020-07-05 21:34] MED LIST changes: +CATAPRES0.1 MG PO; +CLARITIN 10 MG10 MG PO; +FLUTICASONE PRO16 GM NASAL; +HYDROCHLOROTHIA25 MG PO; +HYDROCODON-ACE1 EA10 PO; +LISINOPRIL20 MG PO; +[UNRECOGNIZED DRUG - REMARK]
[2020-07-05 21:36] VITALS: Ht 157.5 cm; Wt 90.9 kg
[2020-07-05] MEDS ORDERED: TENORMIN25 MG PO (21:46)
[2020-07-05 21:55] LABS: BASOPHILS 0.2 % (0-2); EOSINOPHILS 0.9 % (0-7); HEMATOCRIT 36.9 % (36.0-48.0); IMMATURE GRANULOCYTES 0.8 % (0-5); LYMPHOCYTES 13.7 % (15-50); MCH 28.1 pg (26.0-34.0); MCHC 32.5 g/dL (31.0-37.0); MCV 86.4 fL (80.0-100.0); MEAN PLATELET VOLUME 10.1 fL (7.4-10.4); MONOCYTES 9.9 % (2-11); NEUTROPHILS 74.5 % (40-80); PLATELET COUNT 259 10x3/uL (130-400); RBC 4.27 10x6/uL (4.00-5.40); WBC 11.7 10x3/uL (4.8-10.8)
[2020-07-05 22:04] LABS: CALC OSMOLALITY 284 mosm/kg (275-300); CALCIUM 9.2 mg/dL (8.5-10.1); CARBON DIOXIDE 24.3 mmol/L (21.0-32.0); CHLORIDE - SERUM 105 mmol/L (98-107); CREATININE - SERUM 1.2 mg/dL (0.6-1.3); GLUCOSE 110 mg/dL (74-106); POTASSIUM - SERUM 3.1 mmol/L (3.5-5.1); SODIUM 141 mmol/L (136-145); UREA NITROGEN 21 mg/dL (7-18); eGFR NON AFRICAN AMERICAN 46 mL/min (90-120)
[2020-07-05 22:07] LABS: APTT 26.7 SECONDS (22.8-39.4); INR 1.06 (0.85-1.17); PROTIME 13.7 SECONDS (11.6-15.0)
[2020-07-05 22:19] LABS: ALBUMIN 3.7 g/dL (3.4-5.0); ALKALINE PHOSPHATASE 110 U/L (30-120); ALT (SGPT) 29 U/L (10-68); BILIRUBIN - TOTAL 0.44 mg/dL (0.2-1.3); CREATINE KINASE 84 UL (21-215); LIPASE 153 U/L (73-393); MAGNESIUM - SERUM 1.7 mg/dL (1.8-2.4); PROTEIN - SERUM 7.7 g/dL (6.4-8.2)
[2020-07-05 22:20] LABS: TROPONIN-I < 0.017 ng/mL (0.000-0.060)
[2020-07-05 23:25] LABS: BILIRUBIN NEGATIVE (NEGATIVE); KETONE NEGATIVE (NEGATIVE); NITRITE NEGATIVE (NEGATIVE); UROBILINOGEN NORMAL mg/dL (< 2)
[2020-07-05 23:27] LABS: BACTERIA MANY /HPF (NONE SEEN); EPITHELIAL CELLS 0-5 /hpf (0-5)
[2020-07-05] MEDS ORDERED: ULTRAM50 MG PO (23:45)
[2020-07-05] MEDS ORDERED: MACROBID100 MG PO (23:45)
[2020-07-06 01:05] VITALS: BP 150/78
== END 2020-07-06 01:05 | disposition home or self-care (01) ==
LOC: D.ER 21:34
PROVIDERS: Family Medicine
DX: M25.552 Pain in left hip (principal); E87.6 Hypokalemia; S00.01XA Abrasion of scalp, initial encounter; N39.0 Urinary tract infection, site not specified; W19.XXXA Unspecified fall, initial encounter; Y93.9 Activity, unspecified; Y92.9 Unspecified place or not applicable; G89.29 Other chronic pain; Z86.73 Personal history of transient ischemic attack (TIA), and cerebral infarction without residual deficits; I10 Essential (primary) hypertension; E07.9 Disorder of thyroid, unspecified; J44.9 Chronic obstructive pulmonary disease, unspecified; K21.9 Gastro-esophageal reflux disease without esophagitis; M25.562 Pain in left knee

== ENCOUNTER → 2021-02-04 10:51 | Outpatient (CLI) | payer MEDICARE, MEDICAID ==
[2020-07-05 21:36] VITALS: BMI 36.6
[~2021-02-04 10:51] MED LIST changes: +MACROBID100 MG PO; +ULTRAM50 MG PO
== END | disposition home or self-care (01) ==
LOC: D.CT 10:51
PROVIDERS: ATTEND Neurological Surgery
DX: M54.6 Pain in thoracic spine (principal)